=== PATIENT | female | born 1960 | race Caucasian/White ===

== ENCOUNTER 2024-01-01 01:44 | Emergency (ER) | payer MEDICARE, SELFPAY ==
[2024-01-01] VITALS (20 sets, daily range): BP systolic 128–179; BP diastolic 75–114; PULSE 88–136; RESP 18–98; TEMP 36.9–38.1; O2SAT 93–98; BMI 22.8
--- NOTE | 2024-01-01 02:03 | EKG_ITS ---
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: : 1960 Requested By: Amber Lorenzo Order Number: [id number] Reading MD: Amber Lorenzo Measurements Intervals [place] Rate: 133 P: IL: QRS: 154 QRSD: 89 T: 91 QT: 299 QTc: 446 Interpretive Statements ATRIAL FIBRILLATION WITH RAPID VENTRICULAR RESPONSE WITH ABERRANT CONDUCTION OR VENTRICULAR PREMATURE COMPLEXES POSSIBLE RIGHT VENTRICULAR HYPERTROPHY [SOME/ALL OF: PROMINENT R IN V1, LATE TRANSITION, RAD, MICHOACANO, SSS] NONSPECIFIC ST & T-WAVE ABNORMALITY Compared to ECG 07/04/2018 19:27:15 Ventricular premature complex(es) now present Aberrant conduction of supraventricular beat(s) now present Sinus bradycardia no longer present Sinus arrhythmia no longer present Myocardial infarct finding no longer present Possible ischemia no longer present T-wave abnormality still present /store/S0/[id number]/[id number].pdf
--- NOTE | 2024-01-01 02:03 | XR_ITS ---
Examination: CTA abdominal aorta iliofemoral runoff. 2-D sagittal coronal reconstructions. 3-D reconstructions, vascular Exam date and time: January 01, 2024 at 0524 hrs. Comparison May 19, 2023 Indications: Right foot redness swelling and pain beginning 3 days ago Technique: Multiple CTA images of the abdominal aorta iliofemoral runoff arterial vessels, 2.0 mm slice thickness, post intravenous administration 130 cc [id number] 2-D sagittal coronal reconstructions. 3-D reconstructions, vascular 3-D postprocessing, including vascular maximum intensity projection images, 3-D volume rendering Low dose protocols were performed. One or more of the following dose reduction techniques were used; automated exposure control, adjustment of the mA and/or KV according to patient size, use of iterative reconstruction technique. Findings: No focal liver or splenic lesions No gallstones No pancreatic mass Moderate renal parenchymal scar formation No bowel obstruction or pericecal inflammatory change No diverticulitis Urinary bladder intact Atrophic uterus Heavy abdominal aortic calcification Heavy calcification at the origins of the celiac and superior mesenteric axes as well as renal arteries 50% stenosis origin right common iliac artery External iliac arteries intact Occlusion of the proximal right superficial femoral artery Reconstitution of attenuated mid and distal right superficial femoral artery Attenuated right popliteal artery Main continuation trunk right anterior tibial posterior tibial arteries fill to the ankle Left superficial femoral artery, popliteal and trifurcation vessels are patent Impression: Occlusion of the proximal right superficial femoral artery which may be secondary to acute thrombosis, clinical correlation advised.
--- NOTE | 2024-01-01 02:14 | EDNOTE_ITS ---
Lower Extremity Injury RME/HPI General Chief Complaint: Extremity Problem,Nontraumatic Stated Complaint: FOOT PAIN Time Seen by Provider: 01/01/24 01:53 Arrival date/time: 01/01/24 01:44 RME / HPI RME / HPI Narrative: A 63-year-old female patient with past medical history of CHF, diabetes mellitus, hypertension, hyperlipidemia, presented due to right foot pain. Patient has long history of right first toe chronic wound secondary to ingrowing nail for 1 year. Patient reported that she had recurrent infections in the past. She reported also she had 2 blockages which was taken care of by Dr. Marie at [facility]. Today patient reported that she has pain and discharge in her first toe of her right foot. The pain started few weeks ago and acute worsening of the pain. She mentioned that she removed part of her toenail and started to drain pus. Patient denied any fever or chills denied any vomiting or shortness of breath. Related Data Allergies Allergy/AdvReac Type Severity Reaction Status Date / Time No Known Allergies Allergy Verified 02/10/23 13:49 ED Exam Narrative Physical exam: GEN: AOx3, able to speak full sentences, looks underweight HEENT: NC/AC, oral mucosa dry, neck supple CVS: RRR, S1-S2 present, no murmurs appreciated RESP: CTAB GI: soft,non distended, non tender, NBS MSK: Right foot redness and swelling, pallor of the right big toe, powers colored discharge, pulse undetectable. Mild hotness, and tenderness. 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 Course Quality Measures none Orders Category Date Time Status Bedside Blood Glucose NOW Care 01/01/24 02:[address] Screening NOW Care 01/01/24 02:06 Completed Machine Programmer Q4H START 00 Care 01/01/24 02:03 Completed Insert IV NOW Care 01/01/24 02:[address] angio abd ilio fem runoff Stat Exams 01/01/24 02:03 Completed CXRP [XR chest 1V portable] Stat Exams 01/01/24 02:19 Completed Blood Culture (Lab) Stat Lab 01/01/24 02:55 Results CBC Stat Lab 01/01/24 02:15 Completed CRP [C-Reactive Protein] Stat Lab 01/01/24 02:15 Completed Comprehensive Metabolic Panel Stat Lab 01/01/24 02:15 Completed Drug Screen,Urine Stat Lab 01/01/24 08:48 Completed ESR [Sed Rate (ESR)] Stat Lab 01/01/24 02:15 Completed Lactate (Lactic Acid) Stat Lab 01/01/24 02:15 Completed Magnesium Stat Lab 01/01/24 02:15 Completed Partial Thromboplastin Time Stat Lab 01/01/24 02:15 Completed Phosphorous Stat Lab 01/01/24 02:15 Completed Procalcitonin Stat Lab 01/01/24 02:15 Completed Prothrombin Time with INR Stat Lab 01/01/24 02:15 Completed UA [Urinalysis] Stat Lab 01/01/24 08:48 Completed Urine Culture Stat Lab 01/01/24 08:46 Received Acetaminophen Tab [Tylenol Tab] Med 01/01/24 03:14 Discontinued 650 mg PO X1 ONE DILTIAZEM in D5W 125 MG Med 01/01/24 03:00 Discontinued 125 mg in 125 ml IV 5 mg/hr DILTIAZEM in D5W 125 MG Med 01/01/24 04:59 Discontinued 125 mg in 125 ml IV 5 mg/hr Diltiazem Inj [Cardizem Inj] Med 01/01/24 02:53 Discontinued 20 mg IV X1 ONE HYDROmorphone INJ [Dilaudid Inj] Med 01/01/24 12:41 Discontinued 1 mg IVP X1 ONE HYDROmorphone INJ [Dilaudid Inj] Med 01/01/24 16:45 Discontinued 1 mg IVP X1 ONE Morphine Inj Med 01/01/24 03:12 Discontinued 2 mg IVP X1 ONE Morphine Inj [Morphine Sulf Inj] Med 01/01/24 02:09 Discontinued 2 mg IVP X1 ONE Potassium Chloride [K-Dur] Med 01/01/24 04:17 Discontinued 20 meq PO X1 ONE Sodium Chloride 0.9% 500 ml [Ns] 500 ml Med 01/01/24 02:23 Discontinued IV 999 mls/hr Vancomycin Inj 1,000 mg Med 01/01/24 02:24 Discontinued Sodium Chloride 0.9% 250 ml [Ns] 250 ml IV X1 Vancomycin Pharmacy to Dose Med 01/01/24 09:00 Discontinued 1 each IV QDAY PRN Vancomycin/Ns 1 gm Ivpb 200 ml Med 01/01/24 22:00 Discontinued IV Q24H Vancomycin/Ns 1 gm Ivpb 200 ml Med 01/01/24 22:00 Discontinued IV Q24H cefTRIAXone [Rocephin] 2 gm Med 01/01/24 02:23 Discontinued Sodium Chloride 0.9% (P) [Ns 0.9% (P)] 50 ml IV X1 EKG (RT) Stat RT 01/01/24 02:03 Draft Oxygen Delivery PRN RT 01/01/24 02:03 Completed Vital Signs Vital signs: Vital Signs Temperature 99.8 F 01/01/24 02:15 Pulse Rate 136 H 01/01/24 02:15 Respiratory Rate 18 01/01/24 02:15 Blood Pressure 158/114 H 01/01/24 02:15 Pulse Oximetry (%) 93 L 01/01/24 02:15 Oxygen Delivery Method Room Air 01/01/24 02:15 Extremity Injury, Lower Patient data External records reviewed:: [facility] previous records Clinical information provided by:: patient Social determinants that could affect healthcare access:: none Patient has the following chronic illnesses:: Peripheral vascular disease. A fib How is presenting disease/condition affected by chronic disease/condition?: caused by Evaluation data The following diagnostics were reviewed and interpreted by me:: lab results Lab and/or radiology exams considered but not ordered:: NA Interpretation Summary: Noted Medications / Prescriptions Medications or Prescriptions considered but not ordered:: NA Medication administrations:: Medication Administration History Discontinued Medications Acetaminophen (Acetaminophen 325 Mg Tablet) 650 mg PO X1 ONE Stop: 01/01/24 03:15 Last Admin: 01/01/24 03:29 Dose: 650 mg Documented By: SANCHEZ Diltiazem HCl (Diltiazem Inj 5 Mg/Ml Vial 5 Ml) 20 mg IV X1 ONE Stop: 01/01/24 02:54 Last Admin: 01/01/24 03:30 Dose: 20 mg Documented By: SANCHEZ Hydromorphone HCl (Hydromorphone Inj 2 Mg/Ml Vial) 1 mg IVP X1 ONE Stop: 01/01/24 12:42 Last Admin: 01/01/24 12:59 Dose: 1 mg Documented By: GLENIS Hydromorphone HCl (Hydromorphone Inj 2 Mg/Ml Vial) 1 mg IVP X1 ONE Stop: 01/01/24 16:46 Last Admin: 01/01/24 16:48 Dose: 1 mg Documented By: GLENIS Ceftriaxone Sodium 2 gm/ (Sodium Chloride) 50 mls @ 100 mls/hr IV X1 ONE Stop: 01/01/24 02:52 Last Infusion: 01/01/24 03:38 Dose: Infused Documented By: Admin: 01/01/24 03:01 Dose: 100 mls/hr Documented By: SANCHEZ Sodium Chloride (Ns) 500 mls @ 999 mls/hr IV .Q31M ONE Stop: 01/01/24 02:53 Last Infusion: 01/01/24 04:04 Dose: Infused Documented By: Admin: 01/01/24 03:16 Dose: 999 mls/hr Documented By: SANCHEZ Vancomycin HCl 1,000 mg/ (Sodium Chloride) 250 mls @ 150 mls/hr IV X1 ONE Stop: 01/01/24 04:03 Last Infusion: 01/01/24 06:28 Dose: Infused Documented By: Admin: 01/01/24 04:08 Dose: 150 mls/hr Documented By: MINDA Diltiazem HCl (Diltiazem In D5w 125 Mg) 125 mg in 125 mls @ 5 mls/hr IV .Q24H BHANU; Protocol Stop: 01/31/24 02:59 Last Admin: 01/01/24 04:09 Dose: 5 mg/hr, 5 mls/hr Documented By: MINDA Diltiazem HCl (Diltiazem In D5w 125 Mg) 125 mg in 125 mls @ 5 mls/hr IV .Q24H [facility] Stop: 01/31/24 04:58 Last Admin: 01/01/24 06:04 Dose: 5 mg/hr, 5 mls/hr Documented By: SANCHEZ Vancomycin/Sodium Chloride (Vancomycin/Ns 1 Gm Ivpb) 200 mls @ 120 mls/hr IV Q24H [facility] Stop: 01/08/24 21:59 Vancomycin/Sodium Chloride (Vancomycin/Ns 1 Gm Ivpb) 200 mls @ 120 mls/hr IV Q24H ONE Stop: 01/01/24 23:39 Morphine Sulfate (Morphine Sulf Inj 4 Mg/Ml Vial) 2 mg IVP X1 ONE Stop: 01/01/24 02:10 Last Admin: 01/01/24 04:03 Dose: Not Given Documented By: ANDREW Non-Admin Reason: Discontinued Morphine Sulfate (Morphine Sulf Inj 10 Mg/Ml Vial) 2 mg IVP X1 ONE Stop: 01/01/24 03:13 Last Admin: 01/01/24 03:18 Dose: 2 mg Documented By: ANIKA Pharmacy Consult (Vancomycin Pharmacy To Dose 1 Each Each) 1 each IV QDAY PRN PRN Reason: PROTOCOL Stop: 01/31/24 08:59 Potassium Chloride (Potassium Chloride 20 Meq Tabcr) 20 meq PO X1 ONE Stop: 01/01/24 04:18 Last Admin: 01/01/24 06:07 Dose: 20 meq Documented By: SANCHEZ Noted Consultations Consultation(s) initiated? (list below): Yes Diagnosis Most likely diagnosis given after review of the tests above:: arterial occlusion RLE Admission Indicated Admission indicated?: indicated Admission Request Was there a request for admission?: Yes Admission Attestation Admission request attestation: Discussed case with [] from Hospitalist service regarding admission. Discussed patients ED course, exam findings, labs, and radiology results. The Hospitalist [agrees,declines] to accept the patient for admission. Disposition Plan Disposition Plan: Transfer Discharge Plan Plan Patient Disposition: [facility] Pt Being Transferred to: [facility] Needed for Transfer: Vascular Surgery Prescriptions/Referrals Referrals: Gregorio Amaya MD [Primary Care Provider] - In 1 week Problem List Clinical Impression: Arterial occlusion Patient/Caregiver Discharge Instructions Print Language: [place] Leonean Stand Alone Forms: Gaby Award Info., Patient Portal Info Letter Attestation Attestation At 0600 on 01/01/24, the care of the patient was transferred to Dr. Granados. Rober Stahl MD
--- NOTE | 2024-01-01 02:19 | XR_ITS ---
Examination: AP chest single view Technique: AP portable upright chest single view Exam date and time: January 01, 2024 0227 hrs. Indications: Fever sepsis alert today Findings: Mild heart failure Mild enlargement cardiac contour Prominent vascular congestion with septal edema perihilar at the lung bases Consider superimposed bilateral pneumonia Impression: Mild heart failure Consider superimposed bilateral pneumonia
[2024-01-01 02:25] LABS: Lactate (Lactic Acid) 1.7 mMol/L (0.4-2.0)
[2024-01-01 02:26] LABS: Basophils % (Auto) 0 % (0-2.5); Eosinophils # (Auto) 0.1 Thou/mm3 (0.0-0.5); Eosinophils % (Auto) 1 % (0-10); Hematocrit 40.6 % (36.0-46.0); Hemoglobin 13.9 g/dL (12.0-16.0); Immature Granulocytes % (Auto) 0 % (0-0); Immature Granulocytes Auto 0.03 Thou/mm3 (0.00-0.00); Lymphocytes # (Auto) 2.1 Thou/mm3 (1.0-4.8); Lymphocytes % (Auto) 18 % (10-50); Mean Corpuscular HGB Conc 34.2 g/dl (31.0-37.0); Mean Corpuscular Hemoglobin 29.8 pg (25.0-35.0); Mean Corpuscular Volume 87 fL (80-100); Monocytes # (Auto) 1.4 Thou/mm3 (0.0-0.8); Monocytes % (Auto) 12 % (0-12); Neutrophils % (Auto) 69 % (37-80); Nucleated Red Blood Cell % 0 /100 WBC (0); Platelet Count 256 Thou/mm3 (140-440); RDW Standard Deviation 41.5 fL (36.4-46.3); Red Blood Count 4.67 Miln/mm3 (4.00-5.20); White Blood Count 11.6 Thou/mm3 (3.6-11.0)
[2024-01-01] MEDS: cefTRIAXone 2 GM in SODIUM CHLORIDE 0.9% (P) 50 ML IV (03:01)
[2024-01-01 03:06] LABS: Partial Thromboplastin Time 27.1 Seconds (22.0-36.0); Prothrombin Time 10.7 Seconds (9.0-12.2)
[2024-01-01 03:07] LABS: Sed Rate (ESR) 89 mm/hr (0-30)
[2024-01-01] MEDS: SODIUM CHLORIDE 0.9% 500 ML 500 ML 999 ML IV (03:16)
[2024-01-01 03:17] LABS: Alanine Aminotransferase 23 U/L (10-49); Albumin, Serum 4.2 gm/dL (3.4-4.8); Albumin/Globulin Ratio 1.3 (1.2-2.2); Alkaline Phosphatase 80 U/L (46-116); Anion Gap 5 (7-16); Aspartate Amino Transferase 26 U/L (0-34); BUN/Creatinine Ratio 23 Ratio (12-20); Bilirubin,Total 0.3 mg/dL (0.3-1.2); Blood Urea Nitrogen 28 mg/dL (9-23); C-Reactive Protein 6.9 mg/dL (0.0-0.9); Calcium 9.1 mg/dL (8.3-10.6); Calcium (Corrected) 9.1 mg/dL (8.5-10.1); Carbon Dioxide 26.9 mMol/L (20.0-31.0); Chloride 99 mMol/L (98-107); Creatinine (Component) 1.2 mg/dL (0.6-1.3); Globulin 3.2 gm/dL (2.3-3.5); Glucose 243 mg/dL (74-106); Osmolality,Calculated 276 (275-295); Potassium 3.9 mMol/L (3.4-5.1); Procalcitonin 0.44 ng/ml (0.0-0.49); Sodium 131 mMol/L (136-145); Total Protein 7.4 gm/dL (5.7-8.2); eGFR 50 See Note
[2024-01-01] MEDS: MORPHINE SULF INJ 10 MG/ML VIAL 2 MG IVP (03:18)
[2024-01-01] MEDS: ACETAMINOPHEN 325 MG TABLET 650 MG PO (03:29)
[2024-01-01] MEDS: DILTIAZEM INJ 5 MG/ML VIAL 5 ML 20 MG IV (03:30)
[2024-01-01] MEDS: Vancomycin Inj 1,000 MG in SODIUM CHLORIDE 0.9% 250 ML 250 ML 150 MG IV (04:08)
[2024-01-01] MEDS: DILTIAZEM in D5W 125 MG 125 MG/125 ML BAG IV ×2 (04:09→06:04)
[2024-01-01] MEDS: POTASSIUM CHLORIDE 20 mEq TABCR PO (06:07)
--- NOTE | 2024-01-01 07:20 | PRELIM_ITS ---
CT angiogram of the abdomen and bilateral lower extremities with intravenous contrast (axial sections with sagittal and coronal reformats): January 01, 2024 at 0524 hours Clinical History: Right lower extremity swelling/ peripheral arterial disease. Comparison: No prior study is available for comparis on. Findings:The abdominal aorta demonstrates atheromatous calcification without evidence of dissecti on or aneurysm. The celiac, superior mesenteric, inferior mesenteric and bilateral renal arteries are patent to the extent visualized. The common iliac, external iliac and internal iliac arteries are pa tent bilaterally.Right lower limb: The common femoral and profunda femoral arteries are patent. The p roximal third of the right superficial femoral artery is occluded. The distal two-thirds of the super ficial femoral artery, popliteal, peroneal, anterior tibial, posterior tibial and dorsalis pedis sana yue are normal in course and caliber and are patent. Left lower limb: The common femoral, superficia l femoral, profunda femoral and popliteal arteries are normal in course and caliber. The anterior tib ial, posterior tibial, peroneal and dorsalis pedis arteries are patent.The liver, gallbladder, spleen , pancreas, adrenals and kidneys are unremarkable.No evidence of bowel obstruction. A moderate amount of fecal material is present in the colon. The appendix is not definitively visualized; however, the re is no evidence of inflammatory process in the right lower quadrant to suggest appendicitis. There is no significant mesenteric or retroperitoneal adenopathy.The urinary bladder is unremarkable. There is no free fluid, free air or abscess.Degenerative changes are identified in the spine. Impression:1 . Focal occlusion of the proximal right superficial femoral artery as described above, likely represe nting acute thrombosis. 2. No evidence of aortic dissection or aneurysm.3. Unremarkable abdomen and l eft lower extremity.Discussion Details: Results verbally communicated to : Dr. Granados at 07:01 AM 01/01/2024 Report Electronically Signed By: John Samson 01/01/2024 7:20:02 AM [EST]
--- NOTE | 2024-01-01 07:58 | PD.EDADDENDU ---
Emergency Room Addendum Addendum Narrative: Patient is s/p enarterectomy by Dr. Marie 2 mo ago and now has focal occlusion of the proximal R superficial femoral artery, causing area of necrosis to her R great toe
[2024-01-01 09:38] LABS: Collection Type, Urine Clean Catch
[2024-01-01 09:58] LABS: Bilirubin,Urine Negative (Negative); Blood,Urine Negative (Negative); Clarity,Urine Clear (Clear/Hazy); Color,Urine Lt-Yellow (Lt Yel-Yel); Glucose, Urine 2+ (Negative); Ketones,Urine Negative (Negative); Leukocyte Esterase,Urine Negative (Negative); Nitrite,Urine Negative (Negative); Protein,Urine Negative (Neg - Trace); RBC,Urine 1 /hpf (0-3); Squamous Epithelial Cell,Urine < 1 /hpf (0-5); Urobilinogen,Urine Negative mg/dL (0.0-1.0); WBC,Urine < 1 /hpf (0-5)
[2024-01-01 09:59] LABS: Specific Gravity,Urine 1.025 (1.001-1.035)
--- NOTE | 2024-01-01 11:32 | PC.CM ---
Addendum entered by Maury Miles RN 01/01/24 14:51: 1445 accepted at [facility] by Dr. King, ED to ED, Report to be called at [phone]. Informed ER CN Mane, packet delivered to ED. Addendum entered by Maury Miles RN 01/01/24 12:34: Received call from HOSSEIN Cuello at [facility], stated she had spoken to Dr. King and connected him with Dr. Granados. Dr. King reviewing case at this time, [facility] RN will call with update when available. Addendum entered by Maury Miles RN 01/01/24 11:38: Spoke with HOSSEIN Cuello at [facility], provided information on patient. She will consult with her MD for review of case. Pending response from at this time. Original Note: [address] Granados requesting transfer for vascular surgery at [facility], patient had surgery previously with Dr. Marie at [facility], he has spoken to Dr. King who is asic verification engineer at [facility] and he is willing to accept patient for transfer. Transfer packet initiated and imaging disc created for packet.
[2024-01-01 12:25] LABS: Amphetamine/Methamp Scrn,U Positive (Negative); Barbiturate Screen,Urine Negative (Negative); Benzodiazepines Screen,Urine Negative (Negative); Benzoylecgonine Screen, Ur Negative (Negative); Fentanyl Screen,Urine Negative (Negative); Opiate Screen,Urine Positive (Negative); THC Screen,Urine Positive (Negative)
[2024-01-01] MEDS: HYDROmorphone INJ 2 MG/ML VIAL 1 MG IVP ×2 (12:59→16:48)
== END 2024-01-01 16:55 | disposition short-term general hospital (02) ==
PROVIDERS: Student in an Organized Health Care Education/Training Program; Emergency Provider Emergency Medicine; PCP Family Medicine
DX: I77.1 Stricture of artery (principal); I96 Gangrene, not elsewhere classified; I48.91 Unspecified atrial fibrillation; I49.3 Ventricular premature depolarization; I11.0 Hypertensive heart disease with heart failure; I50.9 Heart failure, unspecified
CPT/HCPCS: 36415; 71045; 75635; 80053; 80307; 81001; 83605; 83735; 84100; 84145; 85025; 85610; 85652; 85730; 86140; 87040; 87086; 93005; 96365; 96366; 96367; 96375; 99285; A4649; J0696; J2270; J3371; J3490; J7040; J7050; Q9967; A9270; J3370

== ENCOUNTER 2024-01-14 18:00 | Inpatient (IN) | payer MEDICARE, MEDICAID, SELFPAY ==
--- NOTE | 2024-01-14 21:21 | PC.NURSE ---
Patient transferred from . Patient A/Ox4, clear speech. able to answer all questions appropriately, denies chest pain or shortness of breath. Right foot wrapped in gauze and Right femoral/inner leg covered with bandaid. No bleeding or drainage observed. Report received from Micah CATALAN from . Dr. Bonilla called and made aware patient arrived to room 361. Per Dr. Bonilla she will place orders.
--- NOTE | 2024-01-14 21:29 | PD.RESHP ---
Documentation for date of: 01/14/24 HPI History of Present Illness Chief complaint: Right femoral artery occlusion History of present illness: 63-year-old female with past medical history of femoral endarterectomy, atrial fibrillation, insulin-dependent type 2 diabetes, history of DVT, CHF, hyperlipidemia, hypertension transferring from [facility] ([place], [place]) after completing peripheral revascularization and angiogram of right common femoral artery. Patient initially presented to [facility] on 12/31 with worsening right foot pain along with ischemic changes noted; found to have right femoral artery occlusion and was transferred to [facility] for vascular surgery needs. Of note, patient underwent right common femoral endarterectomy sometime in September but presented to [facility] with the pain after she trimmed her toenail and started to develop ischemia of the right great toe. Surgery was completed on 01/02/[address] King without any acute complications postoperatively. On 01/14/2024 patient is transferring back to [facility] after being stable, chronic medical conditions controlled and requiring placement. Medical history: As stated above Surgical history: Endarterectomy femoral artery (right) on 10/07/2023, appendectomy, ovarian cyst Allergies: NKDA Medications: As listed Family history: Father with heart disease and ID, mother with history of cancer Social history: Patient denies alcohol use, current everyday smoker smokes 1 to 2 cigarettes a day for 45 years, smokes marijuana 1 to 2 times per week ROS: All 12 systems assessed and the patient denies unless otherwise stated in HPI Exam Narrative Exam Physical Exam: GENERAL: Awake, answering questions appropriately, appears stated age HEENT: NC/AT. Moist mucosa. PERRLA/EOMI. CARDIO: Heart RRR, no obvious murmurs, no JVD. PULM: No coughing or visible SOB. Lungs CTA B/L. GI: Abdomen soft, NT/ND, +BS. SKIN/MSK/EXT: R foot bandaged with no oozing; extremities well perfused, warm with no peripheral edema noted NEURO: Oriented x3, grove superintendent strength 5/5, no focal neurological deficits Results: Labs 01/15/24 04:20 01/15/24 04:20 Quality Measures Quality Measures VTE prophylaxis Advance care planning discussed with:: patient Medications Home Medications and Allergies Allergies Allergy/AdvReac Type Severity Reaction Status Date / Time No Known Allergies Allergy Verified 02/10/23 13:49 Assessment & Plan Plan 63-year-old female with past medical history of femoral endarterectomy, atrial fibrillation, insulin-dependent type 2 diabetes, history of DVT, CHF, hyperlipidemia, hypertension transferring from [facility] ([place], [place]) after completing peripheral revascularization and angiogram of right common femoral artery transferring back to [facility] after being stable, chronic medical conditions controlled and requiring placement. 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 King without any acute complications POD#12 Plan: Pain controlled with tramadol PT consult in Monitor for any acute changes to circulation Will need placement to SNF s/p surgery Follow-up with Dr. Lanza for wound care Weight-bearing in surgical shoe Change dressings daily Keep dressings clean and dry #Blood loss anemia s/p transfusion Patient's Hgb was 6.5 on 01/11; recieved 1u of pRBC No signs of GI bleed Plan: Follow-up with morning labs #Atrial fibrillation, rate controlled #DVT on Eliquis CHADVaSc score of 6?points Stroke risk was 9.7% per year in >90,000 patients (the [place] Atrial Fibrillation Cohort Study) and 13.6% risk of stroke/TIA/systemic embolism Patient's on Digoxin 0.25mg po daily and Metoprolol tartrate 25mg po bid Plan: Continue Eliquis 2.5mg po BID (patient had bleeding; [facility] dose reduced) Continue home meds #Prevotella bacteremia, completed abx course 7 days of Zosyn and Doxycycline (started on 01/10 to end on 01/16) Plan: Continue Doxycycline until 01/16 Monitor for any new signs of sepsis #Insulin dependent, type 2 diabetes mellitus #Diabetic neuropathy On home Lantus 40u and gabapentin 100 in the morning and 300 at night Plan: SSI for now Continue home gabapentin #History of CHF, HFrEF Patient has several risk factors (htn, hln, diabetes, smoking history) Echo from 2019 shows: Normal left ventricular size with mild LVH. Approximate ejection fraction is 25-30%. Moderate mitral regurgitation. Mild pulmonic and tricuspid regurgitation noted. Mild pulmonary hypertension Plan: ECHO ordered #Hypertension #Hyperlipidemia On home valsartan 160mg po daily, atorvastatin 20mg po hs Continue home medications as prescribed #Generalized Anxiety On home Buspar 5mg po bid Plan: Restarted home medication Hospital Management: Lines: PIV Bowel: Senna prn Diet: Cardiac and Carb consistent low GI prophylaxis: famitidine 40 DVT prophylaxis: Eliquis 2.5 Dispo: Pending placement s/p femoropopliteal bypass at [facility] Code: Full Patient seen and examined with attending Dr. Connelly and senior resident Dr. Chad Coles, PGY-1 Attending Provider Attestation/Addendum Face to face evaluation was performed by me. I have personally seen and examined the patient. I discussed the assessment and plan with the entire medicine team. I reviewed available medical records, imaging studies, laboratory results. I agree with the above subjective data, objective findings, assessment and plan except as corrected by me or noted below #Right peripheral artery disease s/p femoropopliteal bypass #Gangrene of R toe s/p amputation of r hallux History of Endarterectomy femoral artery (right) on 10/07/2023 Patient had surgery at [facility] on 01/[address] King without any acute complications POD#12 #Blood loss anemia s/p transfusion #Atrial fibrillation, rate controlled #DVT on Eliquis # HTN essential - Pt transferred from , continue meds including apixaban and asa - Placement SW to follow -Monitor labs, vitals and clinical course clayey DVT ppx covered with apixaban
[2024-01-14 21:32] VITALS: BP 115/57; PULSE 65; RESP 17; TEMP 36.1; O2SAT 97
[2024-01-14] MEDS: INSULIN GLARGINE (Lantus) 5 UNIT/0.05 ML (PER 5 UNITS) 10 UNIT SC (22:39)
[2024-01-14 23:16] VITALS: PULSE 40
[2024-01-15] VITALS (11 sets, daily range): BP systolic 128–152; BP diastolic 48–68; PULSE 9–70; RESP 16–98; TEMP 36.2–36.6; O2SAT 95–99
[2024-01-15] MEDS: traMADol HCL 50 MG TABLET PO ×3 (04:19→17:20)
[2024-01-15 05:48] LABS: Basophils % (Auto) 0 % (0-2.5); Eosinophils # (Auto) 0.1 Thou/mm3 (0.0-0.5); Eosinophils % (Auto) 1 % (0-10); Hematocrit 28.3 % (36.0-46.0); Hemoglobin 8.9 g/dL (12.0-16.0); Immature Granulocytes % (Auto) 5 % (0-0); Lymphocytes # (Auto) 2.4 Thou/mm3 (1.0-4.8); Lymphocytes % (Auto) 18 % (10-50); Mean Corpuscular HGB Conc 31.4 g/dl (31.0-37.0); Mean Corpuscular Hemoglobin 27.5 pg (25.0-35.0); Mean Corpuscular Volume 87 fL (80-100); Monocytes # (Auto) 1.2 Thou/mm3 (0.0-0.8); Monocytes % (Auto) 9 % (0-12); Neutrophils % (Auto) 67 % (37-80); Nucleated Red Blood Cell # 0.14 Thou/mm3 (0.00-0.00); Nucleated Red Blood Cell % 1 /100 WBC (0); Platelet Count 536 Thou/mm3 (140-440); RDW Standard Deviation 53.5 fL (36.4-46.3); Red Blood Count 3.24 Miln/mm3 (4.00-5.20); White Blood Count 13.5 Thou/mm3 (3.6-11.0)
[2024-01-15 06:20] LABS: Alanine Aminotransferase 12 U/L (10-49); Albumin, Serum 3.4 gm/dL (3.4-4.8); Albumin/Globulin Ratio 1.4 (1.2-2.2); Alkaline Phosphatase 71 U/L (46-116); Anion Gap 7 (7-16); Aspartate Amino Transferase 28 U/L (0-34); BUN/Creatinine Ratio 28 Ratio (12-20); Bilirubin,Total 0.5 mg/dL (0.3-1.2); Blood Urea Nitrogen 22 mg/dL (9-23); Calcium 8.2 mg/dL (8.3-10.6); Calcium (Corrected) 8.7 mg/dL (8.5-10.1); Carbon Dioxide 26.5 mMol/L (20.0-31.0); Chloride 102 mMol/L (98-107); Creatinine (Component) 0.8 mg/dL (0.6-1.3); Digoxin 1.5 ng/mL (0.8-2.0); Globulin 2.5 gm/dL (2.3-3.5); Glucose 137 mg/dL (74-106); Magnesium 1.9 mg/dL (1.6-2.6); Osmolality,Calculated 275 (275-295); Phosphorous 2.8 mg/dL (2.4-5.1); Potassium 4.2 mMol/L (3.4-5.1); Sodium 135 mMol/L (136-145); Total Protein 5.9 gm/dL (5.7-8.2); eGFR > 60 See Note
[2024-01-15 07:40] LABS: Glucose Estimated Average 169 mg/dL (80-131); Hemoglobin A1C 7.5 % Hgb (4.8-6.0)
[2024-01-15] MEDS: SENNA TABLET 1 TAB PO (08:24)
[2024-01-15] MEDS: DIGOXIN 0.125 MG TABLET 0.25 MG PO (08:24)
[2024-01-15] MEDS: INSULIN LISPRO (AdmeLOG) 1 UNIT/0.01 ML UNIT SC ×3 (08:24→17:20)
[2024-01-15] MEDS: DOXYCYCLINE 100 MG TABLET PO ×2 (08:24→20:11)
[2024-01-15] MEDS: ASPIRIN EC 81 MG TABEC PO (08:24)
[2024-01-15] MEDS: BusPIRone HCL 5 MG TABLET PO ×2 (08:24→20:11)
[2024-01-15] MEDS: GABAPENTIN 100 MG CAPSULE PO (08:24)
[2024-01-15] MEDS: APIXABAN 2.5 MG TABLET PO ×2 (10:18→20:12)
[2024-01-15] MEDS: METOPROLOL TARTRATE 25 MG TABLET 50 MG PO ×2 (10:20→20:10)
[2024-01-15] MEDS: VALSARTAN 80 MG TABLET 160 MG PO (10:20)
[2024-01-15 13:38] LABS: Amphetamine/Methamp Scrn,U Negative (Negative); Barbiturate Screen,Urine Negative (Negative); Benzodiazepines Screen,Urine Negative (Negative); Benzoylecgonine Screen, Ur Negative (Negative); Fentanyl Screen,Urine Negative (Negative); Opiate Screen,Urine Positive (Negative); THC Screen,Urine Negative (Negative)
--- NOTE | 2024-01-15 15:48 | PC.SS ---
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
--- NOTE | 2024-01-15 16:59 | ESPR_ITS ---
<Statement entered by Vijay Scruggs MD - 01/16/24 12:17> I have discussed and was present for the essential components of the history, physical examination, diagnosis, and treatment plan with the resident. I agree with the patient's care as documented by the resident and amended herein by me. Vijay Scruggs MD. <Statement entered by Armen Robbins MD - 01/15/24 20:28> Patient was seen and examined at the bedside. Patient was received overnight after getting transferred back from [facility] to our facility after getting femoropopliteal bypass grafting in the right lower extremity PAD. He underwent amputation of the right toe for gangrene right toe. Patient is currently on aspirin and Eliquis therapy. Home medications were reconciled. Patient is also on doxycycline until January 16 for possible prepatellar bacteremia per chart review. PT recommended SNF and awaiting for placement. Patient was otherwise stable. All labs and orders were reviewed. I saw and examined the patient, and I agree with current management stated by Dr Rd MD,PGY1. Plan of care was discussed with the attending physician and resident physician. Disclaimer: Despite multiple revisions, due to the dictation software being used, the document bellow may not be free of grammatical errors including phonetic/typographic errors. However, this does not deter from our commitment to providing health care in the patient's best interest in mind. Dr. Eric MD, PGY 2 Documentation for date of: 01/15/24 Subjective Subjective Interval history: Patient is a 63 year old female with a past medical history of Hypertension, Hyperlipidemia, Diabetes Mellitus Type 2 Inuslin Dependent, COPD, CHF, atrial fibrillation, Diabetic Foot Ulcer w/ PAD s/p Debridement 12/09/2023, history of femoral endarterectomy by Dr. Marie. Patient was transfered from [facility] back to [place] on (01/14/2024) s/p peripheral revascularization and angiogram of right common femoral arter. Patient was initially transfered to [facility] on 01/01/2024 directly form ER. Patient admitted overnight and no acute events reported by patient. Patient examined at beside. Patient denied any lowere extremity pain. Denied chills or pyrexia. Denied chest pain or SOB. Exam Vital Signs Temp Pulse Resp BP Pulse Ox O2 Del Method 97.8 F 69 16 131/62 H 97 Room Air 01/15/24 12:00 01/15/24 12:00 01/15/24 12:00 01/15/24 12:00 01/15/24 12:00 01/15/24 12:00 Narrative Exam General Appearance: Alert & Oriented X3, well-nourished female who is lying in bed in no acute distress HEENT: Skull symmetrical and atraumatic. Conjunctivae pin and moist. Pupils equal, round, reactive to light and accommodation (PERRL). External ear without lesion or discharge. Straight, nares patient, mucosa pink, no discharge. No thyroid nodule appreciated. No cervical lymphadenopathy. Cardio: Normal Rate and Rhythm with S1 and S2 heart sounds. No murmurs or extra heart sounds auscultated. No bruits on carotid auscultation. No peripheral edema or cyanosis. Lungs: Symmetric with good expansion. Chest and back non-tender. Breath sounds vesicular without crackles, wheezing or rhonchi Abdomen: Non-tender, Non-distended, Normal Reactive Bowel Sounds Neuro: Alert, cooperative, oriented to person, place, and time. Speech clear. CN grossly intact. Upper motor strength 5/5 and Lower motor strength 5/5. Sensation intact. Objective Labs 01/15/24 04:20 01/15/24 04:20 Labs: Laboratory Results - last 24 hr 01/15/24 01/15/24 04:20 12:50 WBC 13.5 H RBC 3.24 L Hgb 8.9 L Hct 28.3 L MCV 87 MCH 27.5 MCHC 31.4 RDW Std Deviation 53.5 H Plt Count 536 H D Neut % (Auto) 67 Lymph % (Auto) 18 [place] % (Auto) 9 Eos % (Auto) 1 Baso % (Auto) 0 Neut # (Auto) 9.0 H Lymph # (Auto) 2.4 [place] # (Auto) 1.2 H Eos # (Auto) 0.1 Baso # (Auto) 0.0 Immature Gran # (Auto) 0.70 H Absolute Nucleated RBC 0.14 H Immature Gran % 5 H Nucleated RBC % 1 H Sodium 135 L Potassium 4.2 Chloride 102 Carbon Dioxide 26.5 Anion Gap 7 BUN 22 Creatinine 0.8 Estim Creat Clear Calc Not Performed. eGFR > 60 BUN/Creatinine Ratio 28 H Glucose [address] Glu mg/dL 169 H Hemoglobin A1c 7.5 H Calculated Osmolality 275 Calcium 8.2 L Corrected Calcium 8.7 Phosphorus 2.8 Magnesium 1.9 Total Bilirubin 0.5 AST 28 ALT 12 Alkaline Phosphatase 71 Total Protein 5.9 Albumin 3.4 Globulin 2.5 Albumin/Globulin Ratio 1.4 Digoxin 1.5 Urine Opiates Screen Positive A Urine Fentanyl Screen Negative Ur Barbiturates Screen Negative U Amphetamin/Meth Scrn Negative U Benzodiazepines Scrn Negative U Cocaine Metab Screen Negative U Marijuana (THC) Screen Negative Quality Measures Quality Measures VTE prophylaxis Advance care planning discussed with:: other Assessment & Plan Assessment Current Active Medications: Generic Name Dose Route Start Last Admin Trade Name Freq PRN Reason Stop Dose Admin Acetaminophen 650 mg 01/15/24 11:44 Acetaminophen 325 Mg Tablet PO 02/13/24 21:27 Q6H PRN Mild Pain or Fever >100.3 Hydrocodone Bitart/Acetaminophen 1 tab 01/15/24 11:43 Hydrocodone/Apap 5/325 Tablet PO 01/19/24 21:44 Q6HR PRN PAIN SCALE 7-10 (Severe Apixaban 2.5 mg 01/15/24 09:00 01/15/24 10:18 Apixaban 2.5 Mg Tablet PO 02/14/24 08:59 2.5 mg BID BHANU Administration Aspirin 81 mg 01/15/24 09:00 01/15/24 08:24 Aspirin Ec 81 Mg Tabec PO 02/14/24 08:59 81 mg QDAY BHANU Administration Atorvastatin Calcium 20 mg 01/15/24 21:00 Atorvastatin Calcium 20 Mg Tablet PO 02/14/24 20:59 HS BHANU Buspirone HCl 5 mg 01/15/24 09:00 01/15/24 08:24 Buspirone Hcl 5 Mg Tablet PO 02/14/24 08:59 5 mg BID BHANU Administration Dextrose 25 ml 01/14/24 21:46 Dextrose 50%-Water Inj 50 Ml Syringe IV 02/13/24 21:45 Q15MIN PRN BG 50-70 responsive npo pt Dextrose 50 ml 01/14/24 21:46 Dextrose 50%-Water Inj 50 Ml Syringe IV 02/13/24 21:45 Q15MIN PRN BG <50 OR BG <70 & pt unresponsive Digoxin 0.25 mg 01/15/24 09:00 01/15/24 08:24 Digoxin 0.125 Mg Tablet PO 02/14/24 08:59 0.25 mg QDAY BHANU Administration Doxycycline Hyclate 100 mg 01/15/24 09:00 01/15/24 08:24 Doxycycline 100 Mg Tablet PO 01/18/24 08:00 100 mg BID BHANU Administration Famotidine 40 mg 01/15/24 21:00 Famotidine 20 Mg Tablet PO 02/14/24 20:59 HS BHANU Gabapentin 100 mg 01/15/24 09:00 01/15/24 08:24 Gabapentin 100 Mg Capsule PO 02/14/24 08:59 100 mg QDAY BHANU Administration Gabapentin 300 mg 01/15/24 21:00 Gabapentin 300 Mg Capsule PO 02/14/24 20:59 HS BHANU Glucagon 1 mg 01/14/24 21:46 Glucagon Inj 1 Mg Vial IM Q15MIN PRN BG <70, and no IV access Insulin Human Lispro 0 unit 01/15/24 07:30 01/15/24 12:03 Insulin Lispro (Admelog) 1 Unit/0.01 Ml Unit SC 02/14/24 07:29 1 unit AC [facility] Administration Protocol Metoclopramide HCl 10 mg 01/14/24 21:28 Metoclopramide 5 Mg Tablet PO 02/13/24 21:29 Q6H PRN Nausea Or Vomiting Metoprolol Tartrate 50 mg 01/14/24 21:45 01/15/24 10:20 Metoprolol Tartrate 25 Mg Tablet PO 02/13/24 21:44 50 mg BID BHANU Administration Sennosides 1 tab 01/15/24 09:00 01/15/24 08:24 Senna Tablet PO 02/14/24 08:59 1 tab QDAY [facility] Administration Protocol Tramadol HCl 50 mg 01/15/24 11:43 Tramadol Hcl 50 Mg Tablet PO 01/19/24 21:44 Q6HR PRN PAIN SCALE 4-6 (Moderate Valsartan 160 mg 01/15/24 09:00 01/15/24 10:20 Valsartan 80 Mg Tablet PO 02/14/24 08:59 160 mg QDAY [facility] Administration Plan Patient is a 63 year old female with a past medical history of Hypertension, Hyperlipidemia, Diabetes Mellitus Type 2 Inuslin Dependent, COPD, CHF, atrial fibrillation, Diabetic Foot Ulcer w/ PAD s/p Debridement 12/09/2023, history of femoral endarterectomy by Dr. Marie. Patient was transfered from [facility] back to [place] on (01/14/2024) s/p peripheral revascularization and angiogram of right common femoral arter. Patient was initially transfered to [facility] on 01/01/2024 directly form ER. Pending SNF. 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 King without any acute complications POD#12 Plan: -Physical Therapy Pending* Pain controlled Tylenol 650 mg PO Q6HR PRN (Mild Pain or Fever), Belle, tramadol Monitor for any acute changes to circulation Need SNF s/p surgery Follow-up with Dr. Lanza for wound care Weight-bearing in surgical shoe Change dressings daily Keep dressings clean and dry #Prevotella bacteremia, completed abx course 7 days of Zosyn and Doxycycline (started on 01/10 to end on 01/16) Plan: Continue Doxycycline until 01/16 Monitor for any new signs of sepsis #History of Chronic CHF, HFrEF #Hyperlipidemia Per chart review history of CHF. Patient does not appear to be in acute exacerbation but has significant co-morbidities contributing to CHF-DM, HTN, HLD Diagnostics: Echo from 2019 shows: Normal left ventricular size with mild LVH. Approximate ejection fraction is 25-30%. Moderate mitral regurgitation. Mild pulmonic and tricuspid regurgitation noted. Mild pulmonary hypertension Plan: -Atorvastatin 20 mg PO HS -Digoxin 0.25 mg PO QDay -Metoprolol Tartrate 50 mg PO BID -Consider TSH and Lipid panel pending echo -ECHO -pending #Atrial fibrillation, rate controlled #DVT on Eliquis CHADVaSc score of 6 points Stroke risk was 9.7% per year in >90,000 patients (the American Atrial Fibrillation Cohort Study) and 13.6% risk of stroke/TIA/systemic embolism Patient's on Digoxin 0.25mg po daily and Metoprolol tartrate 25mg po bid Plan: Continue Eliquis 2.5mg po BID (patient had bleeding; [facility] dose reduced) Continue home meds #Insulin dependent, type 2 diabetes mellitus #Diabetic neuropathy #hx of Diabetic Foot Ulcer On home Lantus 40u and gabapentin 100 in the morning and 300 at night Diagnostic: -A1c 7.5% -Fasting Glucose (01/15/2024) 137 -Following total Lispr tomorrow. Plan: -SSI -Continue home gabapentin #Hypertension History of HTN. Blood pressure on admission Plan -Continue home dose medication of Valsartan 160 mg PO QDay #Generalized Anxiety On home Buspar 5mg po bid Plan: Restarted home medication #Blood loss anemia s/p transfusion Patient's Hgb was 6.5 on 01/11; recieved 1u of pRBC No signs of GI bleed Plan: Follow-up with morning labs Health Maintenance: Disp: Pt is currently admitted to floors for further management of S/p femoropoliteal bypass, awaiting SNF placement FEN: Cardiac/low carb consistent low DVT: Eliquis 2.5 mg BID Code: Full code - The patient's plan was discussed with attending Dr. Scruggs and senior residents Dr. Eric Sultana MD PGY1 Internal Medicine
[2024-01-15] MEDS: ATORVASTATIN CALCIUM 20 MG TABLET PO (20:11)
[2024-01-15] MEDS: GABAPENTIN 300 MG CAPSULE PO (20:11)
[2024-01-15] MEDS: FAMOTIDINE 20 MG TABLET 40 MG PO (20:11)
[2024-01-15] MEDS: HYDROcodone/APAP 5/325 TABLET 1 TAB PO (20:11)
[2024-01-16] VITALS (9 sets, daily range): BP systolic 116–144; BP diastolic 52–67; PULSE 39–68; RESP 17–24; TEMP 36.1–37; O2SAT 96–98
[2024-01-16 05:51] LABS: Basophils % (Auto) 0 % (0-2.5); Eosinophils # (Auto) 0.1 Thou/mm3 (0.0-0.5); Eosinophils % (Auto) 1 % (0-10); Hematocrit 29.7 % (36.0-46.0); Hemoglobin 9.4 g/dL (12.0-16.0); Immature Granulocytes % (Auto) 4 % (0-0); Lymphocytes # (Auto) 3.2 Thou/mm3 (1.0-4.8); Lymphocytes % (Auto) 25 % (10-50); Mean Corpuscular HGB Conc 31.6 g/dl (31.0-37.0); Mean Corpuscular Hemoglobin 28.3 pg (25.0-35.0); Mean Corpuscular Volume 90 fL (80-100); Monocytes # (Auto) 1.3 Thou/mm3 (0.0-0.8); Monocytes % (Auto) 10 % (0-12); Neutrophils # (Auto) 7.8 Thou/mm3 (1.8-7.7); Neutrophils % (Auto) 60 % (37-80); Nucleated Red Blood Cell # 0.03 Thou/mm3 (0.00-0.00); Nucleated Red Blood Cell % 0 /100 WBC (0); Platelet Count 573 Thou/mm3 (140-440); RDW Standard Deviation 55.1 fL (36.4-46.3); Red Blood Count 3.32 Miln/mm3 (4.00-5.20); White Blood Count 12.9 Thou/mm3 (3.6-11.0)
[2024-01-16 06:15] LABS: Alanine Aminotransferase 13 U/L (10-49); Albumin, Serum 3.5 gm/dL (3.4-4.8); Albumin/Globulin Ratio 1.3 (1.2-2.2); Alkaline Phosphatase 73 U/L (46-116); Anion Gap 6 (7-16); Aspartate Amino Transferase 31 U/L (0-34); BUN/Creatinine Ratio 27 Ratio (12-20); Bilirubin,Total 0.4 mg/dL (0.3-1.2); Blood Urea Nitrogen 24 mg/dL (9-23); Calcium 8.5 mg/dL (8.3-10.6); Calcium (Corrected) 8.9 mg/dL (8.5-10.1); Carbon Dioxide 25.9 mMol/L (20.0-31.0); Chloride 102 mMol/L (98-107); Creatinine (Component) 0.9 mg/dL (0.6-1.3); Globulin 2.8 gm/dL (2.3-3.5); Glucose 141 mg/dL (74-106); Magnesium 1.9 mg/dL (1.6-2.6); Osmolality,Calculated 274 (275-295); Phosphorous 2.9 mg/dL (2.4-5.1); Sodium 134 mMol/L (136-145); Total Protein 6.3 gm/dL (5.7-8.2); eGFR > 60 See Note
[2024-01-16] MEDS: INSULIN LISPRO (AdmeLOG) 1 UNIT/0.01 ML UNIT SC ×3 (07:44→16:53)
--- NOTE | 2024-01-16 07:53 | PD.RESPRO ---
Documentation for date of: 01/16/24 Exam Vital Signs Temp Pulse Resp BP Pulse Ox O2 Del Method 97.6 F 60 17 144/63 H 97 Room Air 01/16/24 07:51 01/16/24 07:51 01/16/24 07:51 01/16/24 07:51 01/16/24 07:51 01/16/24 07:51 Objective Labs 01/16/24 05:24 01/16/24 05:24 Labs: Laboratory Results - last 24 hr 01/15/24 01/16/24 12:50 05:24 WBC 12.9 H RBC 3.32 L Hgb 9.4 L Hct 29.7 L MCV 90 MCH 28.3 MCHC 31.6 RDW Std Deviation 55.1 H Plt Count 573 H D Neut % (Auto) 60 Lymph % (Auto) 25 [place] % (Auto) 10 Eos % (Auto) 1 Baso % (Auto) 0 Neut # (Auto) 7.8 H Lymph # (Auto) 3.2 [place] # (Auto) 1.3 H Eos # (Auto) 0.1 Baso # (Auto) 0.0 Immature Gran # (Auto) 0.50 H Absolute Nucleated RBC 0.03 H Immature Gran % 4 H Nucleated RBC % 0 Sodium 134 L Potassium 5.0 D Chloride 102 Carbon Dioxide 25.9 Anion Gap 6 L BUN 24 H Creatinine 0.9 Estim Creat Clear Calc Not Performed. eGFR > 60 BUN/Creatinine Ratio 27 H Glucose 141 H Calculated Osmolality 274 L Calcium 8.5 Corrected Calcium 8.9 Phosphorus 2.9 Magnesium 1.9 Total Bilirubin 0.4 AST 31 ALT 13 Alkaline Phosphatase 73 Total Protein 6.3 Albumin 3.5 Globulin 2.8 Albumin/Globulin Ratio 1.3 Urine Opiates Screen Positive A Urine Fentanyl Screen Negative Ur Barbiturates Screen Negative U Amphetamin/Meth Scrn Negative U Benzodiazepines Scrn Negative U Cocaine Metab Screen Negative U Marijuana (THC) Screen Negative Quality Measures Quality Measures VTE prophylaxis Assessment & Plan Assessment Current Active Medications: Generic Name Dose Route Start Last Admin Trade Name Freq PRN Reason Stop Dose Admin Acetaminophen 650 mg 01/15/24 11:44 Acetaminophen 325 Mg Tablet PO 02/13/24 21:27 Q6H PRN Mild Pain or Fever >100.3 Hydrocodone Bitart/Acetaminophen 1 tab 01/15/24 11:43 01/15/24 20:11 Hydrocodone/Apap 5/325 Tablet PO 01/19/24 21:44 1 tab Q6HR PRN Administration PAIN SCALE 7-10 (Severe Apixaban 2.5 mg 01/15/24 09:00 01/15/24 20:12 Apixaban 2.5 Mg Tablet PO 02/14/24 08:59 2.5 mg BID BHANU Administration Aspirin 81 mg 01/15/24 09:00 01/15/24 08:24 Aspirin Ec 81 Mg Tabec PO 02/14/24 08:59 81 mg QDAY BHANU Administration Atorvastatin Calcium 20 mg 01/15/24 21:00 01/15/24 20:11 Atorvastatin Calcium 20 Mg Tablet PO 02/14/24 20:59 20 mg HS BHANU Administration Buspirone HCl 5 mg 01/15/24 09:00 01/15/24 20:11 Buspirone Hcl 5 Mg Tablet PO 02/14/24 08:59 5 mg BID BHANU Administration Dextrose 25 ml 01/14/24 21:46 Dextrose 50%-Water Inj 50 Ml Syringe IV 02/13/24 21:45 Q15MIN PRN BG 50-70 responsive npo pt Dextrose 50 ml 01/14/24 21:46 Dextrose 50%-Water Inj 50 Ml Syringe IV 02/13/24 21:45 Q15MIN PRN BG <50 OR BG <70 & pt unresponsive Digoxin 0.25 mg 01/15/24 09:00 01/15/24 08:24 Digoxin 0.125 Mg Tablet PO 02/14/24 08:59 0.25 mg QDAY BHANU Administration Doxycycline Hyclate 100 mg 01/15/24 09:00 01/15/24 20:11 Doxycycline 100 Mg Tablet PO 01/18/24 08:00 100 mg BID BHANU Administration Famotidine 40 mg 01/15/24 21:00 01/15/24 20:11 Famotidine 20 Mg Tablet PO 02/14/24 20:59 40 mg HS BHANU Administration Gabapentin 100 mg 01/15/24 09:00 01/15/24 08:24 Gabapentin 100 Mg Capsule PO 02/14/24 08:59 100 mg QDAY BHANU Administration Gabapentin 300 mg 01/15/24 21:00 01/15/24 20:11 Gabapentin 300 Mg Capsule PO 02/14/24 20:59 300 mg HS BHANU Administration Glucagon 1 mg 01/14/24 21:46 Glucagon Inj 1 Mg Vial IM Q15MIN PRN BG <70, and no IV access Insulin Human Lispro 0 unit 01/15/24 07:30 01/16/24 07:44 Insulin Lispro (Admelog) 1 Unit/0.01 Ml Unit SC 02/14/24 07:29 1 unit AC BHANU Administration Protocol Metoclopramide HCl 10 mg 01/14/24 21:28 Metoclopramide 5 Mg Tablet PO 02/13/24 21:29 Q6H PRN Nausea Or Vomiting Metoprolol Tartrate 50 mg 01/14/24 21:45 01/15/24 20:10 Metoprolol Tartrate 25 Mg Tablet PO 02/13/24 21:44 50 mg BID BHANU Administration Sennosides 1 tab 01/15/24 09:00 01/15/24 08:24 Senna Tablet PO 02/14/24 08:59 1 tab QDAY BHANU Administration Protocol Tramadol HCl 50 mg 01/15/24 11:43 01/15/24 17:20 Tramadol Hcl 50 Mg Tablet PO 01/19/24 21:44 50 mg Q6HR PRN Administration PAIN SCALE 4-6 (Moderate Valsartan 160 mg 01/15/24 09:00 01/15/24 10:20 Valsartan 80 Mg Tablet PO 02/14/24 08:59 160 mg QDAY BHANU Administration
[2024-01-16] MEDS: SENNA TABLET 1 TAB PO (10:15)
[2024-01-16] MEDS: APIXABAN 2.5 MG TABLET PO ×2 (10:15→20:25)
[2024-01-16] MEDS: BusPIRone HCL 5 MG TABLET PO ×2 (10:15→20:25)
[2024-01-16] MEDS: ASPIRIN EC 81 MG TABEC PO (10:15)
[2024-01-16] MEDS: DOXYCYCLINE 100 MG TABLET PO ×2 (10:15→20:25)
[2024-01-16] MEDS: VALSARTAN 80 MG TABLET 160 MG PO (10:16)
[2024-01-16] MEDS: METOPROLOL TARTRATE 25 MG TABLET 50 MG PO (10:16)
[2024-01-16] MEDS: DIGOXIN 0.125 MG TABLET 0.25 MG PO (10:16)
[2024-01-16] MEDS: GABAPENTIN 100 MG CAPSULE PO (10:17)
[2024-01-16] MEDS: traMADol HCL 50 MG TABLET PO (10:21)
[2024-01-16] MEDS: Magnesium Sulfate 2 GM Ivpb 2 GM/50 ML BAG IV (10:21)
[2024-01-16] MEDS: HYDROcodone/APAP 5/325 TABLET 1 TAB PO ×2 (12:51→20:25)
--- NOTE | 2024-01-16 13:54 | PD.RESDS ---
Planned Discharge Date 01/16/24 DS: Providers Provider Date of admission: 01/14/24 18:00 Primary care physician: Physician No Primary/Family Admitting Provider: Vijay Scruggs MD Attending Provider on Admission: Robin Connelly MD Consults: 01/14/24 21:52 Referral Physical Therapy Routine Comment: Physician Instructions: 01/14/24 23:25 Referral Wound Care Routine Comment: Attending Provider on DC: Shaun Moyer MD Discharging Provider: Shaun Moyer MD Hospital Course Hospital Course Hospital course: Patient is a 63 year old female with a past medical history of Hypertension, Hyperlipidemia, Diabetes Mellitus Type 2 Inuslin Dependent, COPD, CHF, atrial fibrillation, Diabetic Foot Ulcer w/ PAD s/p Debridement 12/09/2023, history of femoral endarterectomy by Dr. Marie. Patient was transfered from [facility] back to [place] on (01/14/2024) s/p peripheral revascularization and angiogram of right common femoral arter. Patient was initially transfered to [facility] on 01/01/2024 directly form ER. Patient admitted overnight and no acute events reported by patient. Patient examined at [facility]. Patient denied any lowere extremity pain. Denied chills or pyrexia. Denied chest pain or SOB. Time Spent with Patient Time attestation: Total time spent providing and/or coordinating discharge services: Exam Vital Signs Temp Pulse Resp BP Pulse Ox O2 Del Method 98.6 F 68 17 143/62 H 97 Room Air 01/16/24 11:30 01/16/24 11:30 01/16/24 11:30 01/16/24 11:30 01/16/24 11:30 01/16/24 11:30 Discharge Plan Plan Patient Disposition: Xfer Skilled g Fac (SNF) Care Plan Goals: You have been started on antibiotic doxycycline. Please take 1 tablet twice a day for 1 more day to complete the course. Please continue to take the rest of your medications as prescribed below. Please continue to work with physical therapy while you are at the [facility] facility Please follow-up with vascular surgery at [facility] within 1 week of discharge. If you experience any new or worsening of symptoms please either call your primary care doctor, or dial 911 or present to the emergency room Prescriptions/Referrals Prescriptions/Med Rec: New Eliquis 2.5 mg Tablet 2.5 mg PO BID Qty: 60 0RF buspirone 5 mg Tablet 5 mg PO BID Qty: 30 0RF atorvastatin 20 mg Tablet 20 mg PO HS Qty: 30 0RF valsartan 80 mg Tablet 160 mg PO QDAY Qty: 30 0RF aspirin 81 mg Tablet,Delayed Release (Dr/Ec) 81 mg PO QDAY 30 Days Qty: 30 0RF famotidine 20 mg Tablet 40 mg PO HS 30 Days Qty: 60 0RF metoclopramide HCl 5 mg Tablet 10 mg PO Q6H PRN (Reason: Nausea Or Vomiting) 30 Days Qty: 30 0RF gabapentin 300 mg Capsule 300 mg PO HS Qty: 30 0RF digoxin 125 mcg (0.125 mg) Tablet 0.25 mg PO QDAY Qty: 30 0RF gabapentin 100 mg Capsule 100 mg PO QDAY Qty: 30 0RF doxycycline hyclate 100 mg Tablet 100 mg PO BID 1 Days Qty: 2 0RF metoprolol tartrate 25 mg Tablet 50 mg PO BID Qty: 30 0RF Referrals: No Primary/Family,Physician [Primary Care Provider] - Patient/Caregiver Discharge Instructions Print Language: Amharic Stand Alone Forms: Gaby Award Info., Patient Portal Info Letter Discharge Order Discharge Orders: Discharge (Routine); Ordered 01/16/24 Ordered By: Nichelle Breaux
--- NOTE | 2024-01-16 15:37 | PC.SS ---
[employer] followed up with pt regarding acceptance SNF's facilities and pt stated that she wanted to go to [facility], pt is pending PT eval.
--- NOTE | 2024-01-16 16:26 | PD.RESPRO ---
Documentation for date of: 01/16/24 Exam Vital Signs Temp Pulse Resp BP Pulse Ox O2 Del Method 97.4 F 62 18 125/59 L 98 Room Air 01/16/24 15:52 01/16/24 15:52 01/16/24 15:52 01/16/24 15:52 01/16/24 15:52 01/16/24 11:30 Objective Labs 01/16/24 05:24 01/16/24 05:24 Labs: Laboratory Results - last 24 hr 01/16/24 05:24 WBC 12.9 H RBC 3.32 L Hgb 9.4 L Hct 29.7 L MCV 90 MCH 28.3 MCHC 31.6 RDW Std Deviation 55.1 H Plt Count 573 H D Neut % (Auto) 60 Lymph % (Auto) 25 [place] % (Auto) 10 Eos % (Auto) 1 Baso % (Auto) 0 Neut # (Auto) 7.8 H Lymph # (Auto) 3.2 [place] # (Auto) 1.3 H Eos # (Auto) 0.1 Baso # (Auto) 0.0 Immature Gran # (Auto) 0.50 H Absolute Nucleated RBC 0.03 H Immature Gran % 4 H Nucleated RBC % 0 Sodium 134 L Potassium 5.0 D Chloride 102 Carbon Dioxide 25.9 Anion Gap 6 L BUN 24 H Creatinine 0.9 Estim Creat Clear Calc Not Performed. eGFR > 60 BUN/Creatinine Ratio 27 H Glucose 141 H Calculated Osmolality 274 L Calcium 8.5 Corrected Calcium 8.9 Phosphorus 2.9 Magnesium 1.9 Total Bilirubin 0.4 AST 31 ALT 13 Alkaline Phosphatase 73 Total Protein 6.3 Albumin 3.5 Globulin 2.8 Albumin/Globulin Ratio 1.3 Quality Measures Quality Measures VTE prophylaxis Assessment & Plan Assessment Current Active Medications: Generic Name Dose Route Start Last Admin Trade Name Freq PRN Reason Stop Dose Admin Acetaminophen 650 mg 01/15/24 11:44 Acetaminophen 325 Mg Tablet PO 02/13/24 21:27 Q6H PRN Mild Pain or Fever >100.3 Hydrocodone Bitart/Acetaminophen 1 tab 01/15/24 11:43 01/16/24 12:51 Hydrocodone/Apap 5/325 Tablet PO 01/19/24 21:44 1 tab Q6HR PRN Administration PAIN SCALE 7-10 (Severe Apixaban 2.5 mg 01/15/24 09:00 01/16/24 10:15 Apixaban 2.5 Mg Tablet PO 02/14/24 08:59 2.5 mg BID BHANU Administration Aspirin 81 mg 01/15/24 09:00 01/16/24 10:15 Aspirin Ec 81 Mg Tabec PO 02/14/24 08:59 81 mg QDAY BHANU Administration Atorvastatin Calcium 20 mg 01/15/24 21:00 01/15/24 20:11 Atorvastatin Calcium 20 Mg Tablet PO 02/14/24 20:59 20 mg HS BHANU Administration Buspirone HCl 5 mg 01/15/24 09:00 01/16/24 10:15 Buspirone Hcl 5 Mg Tablet PO 02/14/24 08:59 5 mg BID BHANU Administration Dextrose 25 ml 01/14/24 21:46 Dextrose 50%-Water Inj 50 Ml Syringe IV 02/13/24 21:45 Q15MIN PRN BG 50-70 responsive npo pt Dextrose 50 ml 01/14/24 21:46 Dextrose 50%-Water Inj 50 Ml Syringe IV 02/13/24 21:45 Q15MIN PRN BG <50 OR BG <70 & pt unresponsive Digoxin 0.25 mg 01/15/24 09:00 01/16/24 10:16 Digoxin 0.125 Mg Tablet PO 02/14/24 08:59 0.25 mg QDAY BHANU Administration Doxycycline Hyclate 100 mg 01/15/24 09:00 01/16/24 10:15 Doxycycline 100 Mg Tablet PO 01/18/24 08:00 100 mg BID BHANU Administration Famotidine 40 mg 01/15/24 21:00 01/15/24 20:11 Famotidine 20 Mg Tablet PO 02/14/24 20:59 40 mg HS BHANU Administration Gabapentin 100 mg 01/15/24 09:00 01/16/24 10:17 Gabapentin 100 Mg Capsule PO 02/14/24 08:59 100 mg QDAY BHANU Administration Gabapentin 300 mg 01/15/24 21:00 01/15/24 20:11 Gabapentin 300 Mg Capsule PO 02/14/24 20:59 300 mg HS BHANU Administration Glucagon 1 mg 01/14/24 21:46 Glucagon Inj 1 Mg Vial IM Q15MIN PRN BG <70, and no IV access Insulin Human Lispro 0 unit 01/15/24 07:30 01/16/24 12:37 Insulin Lispro (Admelog) 1 Unit/0.01 Ml Unit SC 02/14/24 07:29 1 unit AC BHANU Administration Protocol Metoclopramide HCl 10 mg 01/14/24 21:28 Metoclopramide 5 Mg Tablet PO 02/13/24 21:29 Q6H PRN Nausea Or Vomiting Metoprolol Tartrate 50 mg 01/14/24 21:45 01/16/24 10:16 Metoprolol Tartrate 25 Mg Tablet PO 02/13/24 21:44 50 mg BID BHANU Administration Sennosides 1 tab 01/15/24 09:00 01/16/24 10:15 Senna Tablet PO 02/14/24 08:59 1 tab QDAY BHANU Administration Protocol Tramadol HCl 50 mg 01/15/24 11:43 01/16/24 10:21 Tramadol Hcl 50 Mg Tablet PO 01/19/24 21:44 50 mg Q6HR PRN Administration PAIN SCALE 4-6 (Moderate Valsartan 160 mg 01/15/24 09:00 01/16/24 10:16 Valsartan 80 Mg Tablet PO 02/14/24 08:59 160 mg QDAY BHANU Administration
--- NOTE | 2024-01-16 16:33 | ESDS_ITS ---
<Statement entered by Vijay Scruggs MD - 01/16/24 17:14> I have discussed and was present for the essential components of the history, physical examination, diagnosis, and treatment plan with the resident. I agree with the patient's care as documented by the resident and amended herein by me. Vijay Scruggs MD FACP. Planned Discharge Date 01/16/24 DS: Providers Provider Date of admission: 01/14/24 18:00 Primary care physician: Physician No Primary/Family Admitting Provider: Vijay Scruggs MD Attending Provider on Admission: Robin Connelly MD Consults: 01/14/24 21:52 Referral Physical Therapy Routine Comment: Physician Instructions: 01/14/24 23:25 Referral Wound Care Routine Comment: Attending Provider on DC: Shaun Moyer MD Discharging Provider: Shaun Moyer MD DS: Diagnosis Problem List Completed Was Problem List Reviewed/Reconciled?: Yes Hospital Course Hospital Course Hospital course: 63-year-old female with past medical history of femoral endarterectomy, atrial fibrillation, insulin-dependent type 2 diabetes, history of DVT, CHF, hyperlipidemia, hypertension transferring from [facility] ([place], [place]) after completing peripheral revascularization and angiogram of right common femoral artery. Patient initially presented to [facility] on 12/31 with worsening right foot pain along with ischemic changes noted; found to have right femoral artery occlusion and was transferred to [facility] for vascular surgery needs. Of note, patient underwent right common femoral endar terectomy sometime in September but presented to [facility] with the pain after she trimmed her toenail and started to develop ischemia of the right great toe. Surgery was completed on 01/02/[address] King without any acute complications postoperatively. On 01/14/2024 patient is transferring back to [facility] after being stable, chronic medical conditions controlled and requiring placement. Upon return to [facility] patient received PT and placement to SNF. All patient's labs have now returned to baseline and patient is clinically stable and fit for discharge to SNF. Discharge diagnoses: 1. Peripheral arterial disease s/p right femoropopliteal bypass 2. 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 Blood loss anemia s/p PRBC transfusion 4. Paroxysmal atrial fibrillation?rate controlled and anticoagulated with Eliquis 5. History of DVT 6. Prevotella bacteremia completed antibiotic course 7. Insulin-dependent diabetes mellitus type 2 8. Diabetic neuropathy 9. Chronic systolic congestive heart failure with reduced ejection fraction [25-30%] 10. Mild pulmonary hypertension 11. Essential hypertension 12. Hyperlipidemia 13. Generalized anxiety Discharge plan: ? You have been started on antibiotic doxycycline. Please take 1 tablet twice daily for 1 day to complete antibiotic course. ? Continue to work with physical therapy at [facility] ? Please make a follow-up appointment with the vascular surgeon who did your surgery within 1 week of discharge. ? Recommended to follow-up with your primary care doctor within 1 week of discharge ? If you experience any new, persistent or worsening of symptoms please either call your primary doctor, dial 911 or present to the emergency room. We are grateful to be able to participate in Ms. Mckeon's care. We wish her the best. Plan of care discussed with Attending Dr. Scruggs and PGY3 Dr. Namita Moyer MD PGY 1 Time Spent with Patient Time attestation: Total time spent providing and/or coordinating discharge services: Time spent: Greater than 30 minutes (35) Exam Vital Signs Temp Pulse Resp BP Pulse Ox O2 Del Method 97.4 F 62 18 125/59 L 98 Room Air 01/16/24 15:52 01/16/24 15:52 01/16/24 15:52 01/16/24 15:52 01/16/24 15:52 01/16/24 11:30 Narrative Exam General Appearance: Alert & Oriented X3, well-nourished female who is lying in bed in no acute distress HEENT: Skull symmetrical and atraumatic. Conjunctivae pin and moist. Pupils equal, round, reactive to light and accommodation (PERRL). External ear without lesion or discharge. Straight, nares patient, mucosa pink, no discharge. No thyroid nodule appreciated. No cervical lymphadenopathy. Cardio: Normal Rate and Rhythm with S1 and S2 heart sounds. No murmurs or extra heart sounds auscultated. No bruits on carotid auscultation. No peripheral edema or cyanosis. Lungs: Symmetric with good expansion. Chest and back non-tender. Breath sounds vesicular without crackles, wheezing or rhonchi Abdomen: Non-tender, Non-distended, Normal Reactive Bowel Sounds Neuro: Alert, cooperative, oriented to person, place, and time. Speech clear. CN grossly intact. Upper motor strength 5/5 and Lower motor strength 5/5. Sensation intact. Skin: Bandage on popliteal area right leg, bandage covering right foot. Discharge Plan Plan Patient Disposition: Xfer Skilled g Fac (SNF) Care Plan Goals: You have been started on antibiotic doxycycline. Please take 1 tablet twice a day for 1 more day to complete the course. Please continue to take the rest of your medications as prescribed below. Please continue to work with physical therapy while you are at the care home facility Please follow-up with vascular surgery at [facility] within 1 week of discharge. If you experience any new or worsening of symptoms please either call your primary care doctor, or dial 911 or present to the emergency room Prescriptions/Referrals Prescriptions/Med Rec: New Eliquis 2.5 mg Tablet 2.5 mg PO BID Qty: 60 0RF buspirone 5 mg Tablet 5 mg PO BID Qty: 30 0RF atorvastatin 20 mg Tablet 20 mg PO HS Qty: 30 0RF valsartan 80 mg Tablet 160 mg PO QDAY Qty: 30 0RF aspirin 81 mg Tablet,Delayed Release (Dr/Ec) 81 mg PO QDAY 30 Days Qty: 30 0RF famotidine 20 mg Tablet 40 mg PO HS 30 Days Qty: 60 0RF metoclopramide HCl 5 mg Tablet 10 mg PO Q6H PRN (Reason: Nausea Or Vomiting) 30 Days Qty: 30 0RF gabapentin 300 mg Capsule 300 mg PO HS Qty: 30 0RF digoxin 125 mcg (0.125 mg) Tablet 0.25 mg PO QDAY Qty: 30 0RF gabapentin 100 mg Capsule 100 mg PO QDAY Qty: 30 0RF doxycycline hyclate 100 mg Tablet 100 mg PO BID 1 Days Qty: 2 0RF metoprolol tartrate 25 mg Tablet 50 mg PO BID Qty: 30 0RF Referrals: No Primary/Family,Physician [Primary Care Provider] - Patient/Caregiver Discharge Instructions Print Language: Pashto Stand Alone Forms: Gaby Award Info., Patient Portal Info Letter Discharge Order Discharge Orders: Discharge (Routine); Ordered 01/16/24 Ordered By: Nichelle Breaux Quality Discharge Quality Measures VTE prophylaxis
[2024-01-16] MEDS: GABAPENTIN 300 MG CAPSULE PO (20:25)
[2024-01-16] MEDS: FAMOTIDINE 20 MG TABLET 40 MG PO (20:25)
[2024-01-16] MEDS: ATORVASTATIN CALCIUM 20 MG TABLET PO (20:25)
[2024-01-17] VITALS (12 sets, daily range): BP systolic 103–147; BP diastolic 56–82; PULSE 60–91; RESP 16–97; TEMP 36.2–37; O2SAT 97–99
[2024-01-17] MEDS: HYDROcodone/APAP 5/325 TABLET 1 TAB PO ×3 (06:10→21:51)
[2024-01-17 06:15] LABS: Basophils % (Auto) 0 % (0-2.5); Eosinophils # (Auto) 0.1 Thou/mm3 (0.0-0.5); Eosinophils % (Auto) 1 % (0-10); Hematocrit 30.6 % (36.0-46.0); Hemoglobin 9.5 g/dL (12.0-16.0); Immature Granulocytes % (Auto) 3 % (0-0); Immature Granulocytes Auto 0.35 Thou/mm3 (0.00-0.00); Lymphocytes # (Auto) 2.3 Thou/mm3 (1.0-4.8); Lymphocytes % (Auto) 20 % (10-50); Mean Corpuscular Hemoglobin 27.9 pg (25.0-35.0); Mean Corpuscular Volume 90 fL (80-100); Monocytes # (Auto) 1.3 Thou/mm3 (0.0-0.8); Monocytes % (Auto) 11 % (0-12); Neutrophils # (Auto) 7.2 Thou/mm3 (1.8-7.7); Neutrophils % (Auto) 64 % (37-80); Nucleated Red Blood Cell % 0 /100 WBC (0); Platelet Count 551 Thou/mm3 (140-440); RDW Standard Deviation 57.2 fL (36.4-46.3); White Blood Count 11.3 Thou/mm3 (3.6-11.0)
[2024-01-17 06:32] LABS: Alanine Aminotransferase 13 U/L (10-49); Albumin, Serum 3.4 gm/dL (3.4-4.8); Albumin/Globulin Ratio 1.3 (1.2-2.2); Alkaline Phosphatase 77 U/L (46-116); Anion Gap 6 (7-16); Aspartate Amino Transferase 25 U/L (0-34); BUN/Creatinine Ratio 27 Ratio (12-20); Bilirubin,Total 0.4 mg/dL (0.3-1.2); Blood Urea Nitrogen 27 mg/dL (9-23); Calcium 8.6 mg/dL (8.3-10.6); Calcium (Corrected) 9.1 mg/dL (8.5-10.1); Carbon Dioxide 26.5 mMol/L (20.0-31.0); Chloride 102 mMol/L (98-107); Globulin 2.6 gm/dL (2.3-3.5); Glucose 171 mg/dL (74-106); Magnesium 1.9 mg/dL (1.6-2.6); Osmolality,Calculated 277 (275-295); Phosphorous 3.7 mg/dL (2.4-5.1); Potassium 4.2 mMol/L (3.4-5.1); Sodium 134 mMol/L (136-145); eGFR > 60 See Note
[2024-01-17] MEDS: INSULIN LISPRO (AdmeLOG) 1 UNIT/0.01 ML UNIT SC ×3 (08:26→17:48)
[2024-01-17] MEDS: APIXABAN 2.5 MG TABLET PO ×2 (08:33→20:33)
[2024-01-17] MEDS: VALSARTAN 80 MG TABLET 160 MG PO (08:33)
[2024-01-17] MEDS: DIGOXIN 0.125 MG TABLET 0.25 MG PO (08:33)
[2024-01-17] MEDS: BusPIRone HCL 5 MG TABLET PO ×2 (08:33→20:33)
[2024-01-17] MEDS: GABAPENTIN 100 MG CAPSULE PO (08:33)
[2024-01-17] MEDS: SENNA TABLET 1 TAB PO (08:33)
[2024-01-17] MEDS: DOXYCYCLINE 100 MG TABLET PO ×2 (08:34→20:33)
[2024-01-17] MEDS: METOPROLOL TARTRATE 25 MG TABLET 50 MG PO ×2 (08:34→20:34)
[2024-01-17] MEDS: ASPIRIN EC 81 MG TABEC PO (08:34)
--- NOTE | 2024-01-17 09:37 | PC.SS ---
Patient Edwina Mckeon is a 63 Year old female admitted for Occlusion and stenosis of bilateral plata. SS met with patient at bedside to complete initial assessment. Patient reports she lives at home with her life partner, Elgin Vance who is her medical decision maker [phone]. Patient reports that prior to admission she utilized a wheel chair and walker to assist with ambulation. Patient is able to complete ADL's independently. Choice of pharmacy is [facility]. PCP is Gregorio Amaya. At time of discharge patient will discharge to [facility]. Patient is pending PT eval for auth to be submitted. Discharge plan: [facility] Next of Kin: Life partner, Eglin Vance [phone]
--- NOTE | 2024-01-17 14:05 | PC.SS ---
Addendum entered by Khushboo Mathur 01/17/24 16:00: SS faxed PT notes to Anya from [facility]. Auth is pending at the time. Original Note: Rounding note; Patient is pending PT note in order for auth to be submitted. SS will need to send to [facility] once PT note is available.
--- NOTE | 2024-01-17 15:37 | ESPR_ITS ---
<Statement entered by Armen Robbins MD - 01/17/24 18:21> Patient was seen and examined at the bedside. Patient is currently doing well and still reported to have pain in the right foot since amputation. We are waiting on insurance authorization for SNF placement. Patient is passing bowel movements. Labs were stable. All labs and orders were reviewed. I saw and examined the patient, and I agree with current management stated by Dr Rd MD,PGY1. Plan of care was discussed with the attending physician and resident physician. Disclaimer: Despite multiple revisions, due to the dictation software being used, the document bellow may not be free of grammatical errors including phonetic/typographic errors. However, this does not deter from our commitment to providing health care in the patient's best interest in mind. Dr. Rosendo MD, PGY 2 Documentation for date of: 01/17/24 Subjective Subjective Interval history: Patient is a 63 year old female with a past medical history of Hypertension, Hyperlipidemia, Diabetes Mellitus Type 2 Inuslin Dependent, COPD, CHF, atrial fibrillation, Diabetic Foot Ulcer w/ PAD s/p Debridement 12/09/2023, history of femoral endarterectomy by Dr. Marie. Patient was transfered from [facility] back to [place] on (01/14/2024) s/p peripheral revascularization and angiogram of right common femoral arter. Patient was initially transfered to [facility] on 01/01/2024 directly form ER. Patient admitted overnight and no acute events reported by patient. Patient examined at beside. This morning patient stated, that despite gabapentin, she still experienced mild discomfort. Patient is still not ambulating. Denied chills or pyrexia. Denied chest pain or SOB. Pending SNF. Exam Vital Signs Temp Pulse Resp BP Pulse Ox O2 Del Method 97.2 F 77 17 103/73 98 Room Air 01/17/24 15:36 01/17/24 15:36 01/17/24 15:36 01/17/24 15:36 01/17/24 15:36 01/17/24 15:36 Narrative Exam General Appearance: Alert & Oriented X3, well-nourished female who is lying in bed in no acute distress, mild right lower extremity pain HEENT: Skull symmetrical and atraumatic. Conjunctivae pin and moist. Pupils equal, round, reactive to light and accommodation (PERRL). External ear without lesion or discharge. Straight, nares patient, mucosa pink, no discharge. No thyroid nodule appreciated. No cervical lymphadenopathy. Cardio: Normal Rate and Rhythm with S1 and S2 heart sounds. No murmurs or extra heart sounds auscultated. No bruits on carotid auscultation. No peripheral edema or cyanosis. Lungs: Symmetric with good expansion. Chest and back non-tender. Breath sounds vesicular without crackles, wheezing or rhonchi Abdomen: Non-tender, Non-distended, Normal Reactive Bowel Sounds Neuro: Alert, cooperative, oriented to person, place, and time. Speech clear. CN grossly intact. Upper motor strength 5/5 and Lower motor strength 5/5. Sensation intact. Objective Labs 01/18/24 04:48 01/18/24 04:48 Labs: Laboratory Results - last 24 hr 01/17/24 05:47 WBC 11.3 H RBC 3.40 L Hgb 9.5 L Hct 30.6 L MCV 90 MCH 27.9 MCHC 31.0 RDW Std Deviation 57.2 H Plt Count 551 H Neut % (Auto) 64 Lymph % (Auto) 20 Spink % (Auto) 11 Eos % (Auto) 1 Baso % (Auto) 0 Neut # (Auto) 7.2 Lymph # (Auto) 2.3 Spink # (Auto) 1.3 H Eos # (Auto) 0.1 Baso # (Auto) 0.0 Immature Gran # (Auto) 0.35 H Absolute Nucleated RBC 0.00 Immature Gran % 3 H Nucleated RBC % 0 Sodium 134 L Potassium 4.2 D Chloride 102 Carbon Dioxide 26.5 Anion Gap 6 L BUN 27 H Creatinine 1.0 Estim Creat Clear Calc Not Performed. eGFR > 60 BUN/Creatinine Ratio 27 H Glucose 171 H Calculated Osmolality 277 Calcium 8.6 Corrected Calcium 9.1 Phosphorus 3.7 Magnesium 1.9 Total Bilirubin 0.4 AST 25 ALT 13 Alkaline Phosphatase 77 Total Protein 6.0 Albumin 3.4 Globulin 2.6 Albumin/Globulin Ratio 1.3 Quality Measures Quality Measures VTE prophylaxis Advance care planning discussed with:: patient Assessment & Plan Assessment Current Active Medications: Generic Name Dose Route Start Last Admin Trade Name Freq PRN Reason Stop Dose Admin Acetaminophen 650 mg 01/15/24 11:44 Acetaminophen 325 Mg Tablet PO 02/13/24 21:27 Q6H PRN Mild Pain or Fever >100.3 Hydrocodone Bitart/Acetaminophen 1 tab 01/15/24 11:43 01/17/24 06:10 Hydrocodone/Apap 5/325 Tablet PO 01/19/24 21:44 1 tab Q6HR PRN Administration PAIN SCALE 7-10 (Severe Apixaban 2.5 mg 01/15/24 09:00 01/17/24 08:33 Apixaban 2.5 Mg Tablet PO 02/14/24 08:59 2.5 mg BID BHANU Administration Aspirin 81 mg 01/15/24 09:00 01/17/24 08:34 Aspirin Ec 81 Mg Tabec PO 02/14/24 08:59 81 mg QDAY BHANU Administration Atorvastatin Calcium 20 mg 01/15/24 21:00 01/16/24 20:25 Atorvastatin Calcium 20 Mg Tablet PO 02/14/24 20:59 20 mg HS BHANU Administration Buspirone HCl 5 mg 01/15/24 09:00 01/17/24 08:33 Buspirone Hcl 5 Mg Tablet PO 02/14/24 08:59 5 mg BID BHANU Administration Dextrose 25 ml 01/14/24 21:46 Dextrose 50%-Water Inj 50 Ml Syringe IV 02/13/24 21:45 Q15MIN PRN BG 50-70 responsive npo pt Dextrose 50 ml 01/14/24 21:46 Dextrose 50%-Water Inj 50 Ml Syringe IV 02/13/24 21:45 Q15MIN PRN BG <50 OR BG <70 & pt unresponsive Digoxin 0.25 mg 01/15/24 09:00 01/17/24 08:33 Digoxin 0.125 Mg Tablet PO 02/14/24 08:59 0.25 mg QDAY BHANU Administration Doxycycline Hyclate 100 mg 01/15/24 09:00 01/17/24 08:34 Doxycycline 100 Mg Tablet PO 01/18/24 08:00 100 mg BID BHANU Administration Famotidine 40 mg 01/15/24 21:00 01/16/24 20:25 Famotidine 20 Mg Tablet PO 02/14/24 20:59 40 mg HS BHANU Administration Gabapentin 100 mg 01/15/24 09:00 01/17/24 08:33 Gabapentin 100 Mg Capsule PO 02/14/24 08:59 100 mg QDAY BHANU Administration Gabapentin 300 mg 01/15/24 21:00 01/16/24 20:25 Gabapentin 300 Mg Capsule PO 02/14/24 20:59 300 mg HS BHANU Administration Glucagon 1 mg 01/14/24 21:46 Glucagon Inj 1 Mg Vial IM Q15MIN PRN BG <70, and no IV access Insulin Human Lispro 0 unit 01/15/24 07:30 01/17/24 12:03 Insulin Lispro (Admelog) 1 Unit/0.01 Ml Unit SC 02/14/24 07:29 1 unit AC BHANU Administration Protocol Metoclopramide HCl 10 mg 01/14/24 21:28 Metoclopramide 5 Mg Tablet PO 02/13/24 21:29 Q6H PRN Nausea Or Vomiting Metoprolol Tartrate 50 mg 01/14/24 21:45 01/17/24 08:34 Metoprolol Tartrate 25 Mg Tablet PO 02/13/24 21:44 50 mg BID BHANU Administration Sennosides 1 tab 01/15/24 09:00 01/17/24 08:33 Senna Tablet PO 02/14/24 08:59 1 tab QDAY BHANU Administration Protocol Tramadol HCl 50 mg 01/15/24 11:43 01/16/24 10:21 Tramadol Hcl 50 Mg Tablet PO 01/19/24 21:44 50 mg Q6HR PRN Administration PAIN SCALE 4-6 (Moderate Valsartan 160 mg 01/15/24 09:00 01/17/24 08:33 Valsartan 80 Mg Tablet PO 02/14/24 08:59 160 mg QDAY [facility] Administration Plan Patient is a 63 year old female with a past medical history of Hypertension, Hyperlipidemia, Diabetes Mellitus Type 2 Inuslin Dependent, COPD, CHF, atrial fibrillation, Diabetic Foot Ulcer w/ PAD s/p Debridement 12/09/2023, history of femoral endarterectomy by Dr. Marie. Patient was transfered from [facility] back to [place] on (01/14/2024) s/p peripheral revascularization and angiogram of right common femoral arter. Patient was initially transfered to [facility] on 01/01/2024 directly form ER. Pending SNF. #Right peripheral artery disease s/p femoropopliteal bypass #Gangrene of R toe s/p amputation of r hallux History of Endarterectomy femoral artery (right) on 10/07/2023 Patient had surgery at [facility] on 01/[address] King without any acute complications POD#12 Plan: -Physical Therapy Pending* Pain controlled Tylenol 650 mg PO Q6HR PRN (Mild Pain or Fever), [place], tramadol Monitor for any acute changes to circulation Need SNF s/p surgery Follow-up with Dr. Lanza for wound care Weight-bearing in surgical shoe Change dressings daily Keep dressings clean and dry #Prevotella bacteremia, completed abx course 7 days of Zosyn and Doxycycline (started on 01/10 to end on 01/16) Plan: Continue Doxycycline until 01/16-D/C tomorrow morning. Monitor for any new signs of sepsis #History of Chronic CHF, HFrEF #Hyperlipidemia Per chart review history of CHF. Patient does not appear to be in acute exacerbation but has significant co-morbidities contributing to CHF-DM, HTN, HLD Diagnostics: Echo from 2019 shows: Normal left ventricular size with mild LVH. Approximate ejection fraction is 25-30%. Moderate mitral regurgitation. Mild pulmonic and tricuspid regurgitation noted. Mild pulmonary hypertension Plan: -Atorvastatin 20 mg PO HS -Digoxin 0.25 mg PO QDay -Metoprolol Tartrate 50 mg PO BID -Consider TSH and Lipid panel pending echo -ECHO -pending #Atrial fibrillation, rate controlled #DVT on Eliquis CHADVaSc score of 6 points Stroke risk was 9.7% per year in >90,000 patients (the [place] Atrial Fibrillation Cohort Study) and 13.6% risk of stroke/TIA/systemic embolism Patient's on Digoxin 0.25mg po daily and Metoprolol tartrate 25mg po bid Plan: Continue Eliquis 2.5mg po BID (patient had bleeding; [facility] dose reduced) Continue home meds #Insulin dependent, type 2 diabetes mellitus #Diabetic neuropathy #hx of Diabetic Foot Ulcer On home Lantus 40u and gabapentin 100 in the morning and 300 at night Diagnostic: -A1c 7.5% -Fasting Glucose (01/15/2024) 137 -Following total Lispr tomorrow. Plan: -SSI -Continue home gabapentin #Hypertension History of HTN. Blood pressure on admission Plan -Continue home dose medication of Valsartan 160 mg PO QDay #Generalized Anxiety On home Buspar 5mg po bid Plan: Restarted home medication #Blood loss anemia s/p transfusion Patient's Hgb was 6.5 on 01/11; recieved 1u of pRBC No signs of GI bleed Plan: Follow-up with morning labs Health Maintenance: Disp: Pt is currently admitted to floors for further management of S/p femoropoliteal bypass, awaiting SNF placement FEN: Cardiac/low carb consistent low DVT: Eliquis 2.5 mg BID Code: Full code - The patient's plan was discussed with attending Dr. Reardon and senior residents Dr. Rosendo Sultana MD PGY1 Internal Medicine Attending Provider Attestation/Addendum I have discussed and was present for the essential components of the history, physical examination, diagnosis, and treatment plan with the resident. I agree with the patient's care as documented by the resident and amended herein by me. Elgin Reardon DO. Although this document has been carefully reviewed, there may still be some phonetic and other typographical errors. These errors are purely grammatical due to imperfections in the software program and should not be construed in any way to compromise the substance of the patient's medical care during this visit.
--- NOTE | 2024-01-17 16:07 | PC.SS ---
Patient is supposed to discharge to [facility], however Anya from [facility] informed me that Patient?s insurance has not been notified that patient was admitted to [facility], therefore are asking for utilization review to send information to patient's insurance. They reported they did not know patient was at our hospital. and contact number is [phone]. Anya from [facility] could not submit for auth until clinicals are submitted.
--- NOTE | 2024-01-17 16:16 | PC.SS ---
Patient is supposed to discharge to [facility], however Anya from [facility] informed me that Patient?s insurance has not been notified that patient was admitted to [facility], therefore are asking for utilization review to send information to patient's insurance and reported they were not aware and notified that patient was admitted to our hospital. and contact number is [phone]. Anya from [facility] could not submit for auth until issue is resolved.
[2024-01-17] MEDS: ATORVASTATIN CALCIUM 20 MG TABLET PO (20:33)
[2024-01-17] MEDS: traMADol HCL 50 MG TABLET PO (20:33)
[2024-01-17] MEDS: FAMOTIDINE 20 MG TABLET 40 MG PO (20:33)
[2024-01-17] MEDS: GABAPENTIN 300 MG CAPSULE PO (20:33)
[2024-01-18] VITALS (9 sets, daily range): BP systolic 139–159; BP diastolic 66–76; PULSE 61–82; RESP 17–95; TEMP 36.1–36.6; O2SAT 93–97; BMI 22.8
[2024-01-18 06:14] LABS: Basophils % (Auto) 0 % (0-2.5); Eosinophils # (Auto) 0.2 Thou/mm3 (0.0-0.5); Eosinophils % (Auto) 1 % (0-10); Hemoglobin 9.1 g/dL (12.0-16.0); Immature Granulocytes % (Auto) 2 % (0-0); Immature Granulocytes Auto 0.21 Thou/mm3 (0.00-0.00); Lymphocytes % (Auto) 25 % (10-50); Mean Corpuscular HGB Conc 31.4 g/dl (31.0-37.0); Mean Corpuscular Hemoglobin 27.8 pg (25.0-35.0); Mean Corpuscular Volume 89 fL (80-100); Monocytes # (Auto) 1.5 Thou/mm3 (0.0-0.8); Monocytes % (Auto) 12 % (0-12); Neutrophils # (Auto) 7.2 Thou/mm3 (1.8-7.7); Neutrophils % (Auto) 60 % (37-80); Nucleated Red Blood Cell % 0 /100 WBC (0); Platelet Count 553 Thou/mm3 (140-440); RDW Standard Deviation 63.3 fL (36.4-46.3); Red Blood Count 3.27 Miln/mm3 (4.00-5.20)
[2024-01-18 06:40] LABS: Alanine Aminotransferase 13 U/L (10-49); Albumin, Serum 3.3 gm/dL (3.4-4.8); Albumin/Globulin Ratio 1.2 (1.2-2.2); Alkaline Phosphatase 87 U/L (46-116); Anion Gap 8 (7-16); Aspartate Amino Transferase 24 U/L (0-34); BUN/Creatinine Ratio 30 Ratio (12-20); Bilirubin,Total 0.3 mg/dL (0.3-1.2); Blood Urea Nitrogen 27 mg/dL (9-23); Calcium 8.5 mg/dL (8.3-10.6); Calcium (Corrected) 9.1 mg/dL (8.5-10.1); Carbon Dioxide 24.1 mMol/L (20.0-31.0); Chloride 103 mMol/L (98-107); Creatinine (Component) 0.9 mg/dL (0.6-1.3); Estimated Creatinine Clearance 58.3 mL/min (>60); Globulin 2.7 gm/dL (2.3-3.5); Glucose 212 mg/dL (74-106); Magnesium 1.7 mg/dL (1.6-2.6); Osmolality,Calculated 281 (275-295); Phosphorous 2.8 mg/dL (2.4-5.1); Potassium 4.4 mMol/L (3.4-5.1); Sodium 135 mMol/L (136-145); eGFR > 60 See Note
[2024-01-18] MEDS: INSULIN LISPRO (AdmeLOG) 1 UNIT/0.01 ML UNIT SC ×2 (07:27→11:13)
[2024-01-18] MEDS: traMADol HCL 50 MG TABLET PO (07:35)
[2024-01-18] MEDS: VALSARTAN 80 MG TABLET 160 MG PO (08:14)
[2024-01-18] MEDS: DIGOXIN 0.125 MG TABLET 0.25 MG PO (08:14)
[2024-01-18] MEDS: METOPROLOL TARTRATE 25 MG TABLET 50 MG PO (08:14)
[2024-01-18] MEDS: BusPIRone HCL 5 MG TABLET PO (08:15)
[2024-01-18] MEDS: ASPIRIN EC 81 MG TABEC PO (08:15)
[2024-01-18] MEDS: SENNA TABLET 1 TAB PO (08:15)
[2024-01-18] MEDS: APIXABAN 2.5 MG TABLET PO (08:15)
[2024-01-18] MEDS: GABAPENTIN 100 MG CAPSULE PO (08:15)
[2024-01-18] MEDS: HYDROcodone/APAP 5/325 TABLET 1 TAB PO (09:04)
[2024-01-18] MEDS: INSULIN GLARGINE (Lantus) 5 UNIT/0.05 ML (PER 5 UNITS) 10 UNIT SC (09:41)
[2024-01-18] MEDS: Magnesium Sulfate 2 GM Ivpb 2 GM/50 ML BAG IV (09:42)
--- NOTE | 2024-01-18 10:16 | PC.NURSE ---
Pt. has discharge order. Per SS will lemon picker the pt.and will not be able to lemon picker the pt. until 3:00 pm.
--- NOTE | 2024-01-18 12:46 | PC.NURSE ---
Sbar report given to ORI ying at the [facility]
--- NOTE | 2024-01-18 13:52 | ESDS_ITS ---
<Statement entered by Armen Robbins MD - 01/18/24 16:06> Patient was seen and examined at the bedside. Patient was medically stable to be discharged today. She was passing bowel movements and had no active concerns. We are continuing her medications as prescribed and was advised to follow-up with PCP as outpatient. She is discharged to SNF. I saw and examined the patient, and I agree with current management stated by Dr Rd MD,PGY1. Plan of care was discussed with the attending physician and resident physician. Disclaimer: Despite multiple revisions, due to the dictation software being used, the document bellow may not be free of grammatical errors including phonetic/typographic errors. However, this does not deter from our commitment to providing health care in the patient's best interest in mind. Dr. Rosendo MD, PGY 2 Planned Discharge Date 01/18/24 DS: Providers Provider Date of admission: 01/14/24 18:00 Primary care physician: Physician No Primary/Family Admitting Provider: Vijay Scruggs MD Attending Provider on Admission: Oziel Reardon DO Consults: 01/14/24 21:52 Referral Physical Therapy Routine Comment: Physician Instructions: 01/14/24 23:25 Referral Wound Care Routine Comment: Attending Provider on DC: Madeline Sultana MD Discharging Provider: Madeline Sultana MD DS: Diagnosis Problem List Completed Was Problem List Reviewed/Reconciled?: Yes Hospital Course Hospital Course Hospital course: Overview: Patient is a 63 year old female with a past medical history of Hypertension, Hyperlipidemia, Diabetes Mellitus Type 2 [place] Dependent, COPD, CHF, atrial fibrillation, Diabetic Foot Ulcer w/ PAD s/p Debridement 12/09/2023, history of femoral endarterectomy by Dr. Marie. Patient was transfered from [facility] back to [place] on (01/14/2024) s/p peripheral revascularization and angiogram of right common femoral arter. Patient was initially transfered to [facility] on 01/01/2024 directly form ER. Pending SNF. Overnight transfer form [facility], no ER Course. 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 Pain management on board for patient on Tylenol 650 p.o. every 6 as needed, [place], and tramadol for breakthrough pain. Please follow-up with Dr. Lanza for wound care. Please change dressing daily please keep dressing clean and dry. Prevotella bacteremia resolved patient completed course of doxycycline on 01/17/2024. History of chronic CHF HFrEF per chart review on digoxin, metoprolol and atorvastatin. Atrial fibrillation, rate controlled patient on Eliquis 2.5 p.o. twice daily. Physical therapy recommendations: PT TD including therapy exercise, therapy activity, neuromuscular reeducation, gait training, patient and caregiver education as clinically appropriate. Care Plan Goals: -Please continue to take the rest of your medications as prescribed below. -Please continue to work with physical therapy while you are at the [facility] -Please follow-up with vascular surgery at [facility] within 1 week of discharge. -Please hold Aspirin and Eliquis if you notice any bleeding, and follow up with primary care provider -Please follow up w/ Dr. Lanza for wound care -Please change dressing daily, keep dressing clean and dry, and weight bearing in surgical shoe. -If you experience any new or worsening of symptoms please either call your primary care doctor, or dial 911 or present to the emergency room -if you do not have a Primary Care Provider, may follow up with [facility], [address], [place] [address]; Phone Right peripheral artery disease s/p femoropopliteal bypass Gangrene of right toe s/p amputation of r hallux Prevotella bacteremia, completed abx course History of chronic CHF, HFrEF Hyperlipidemia Atrial Fibrillation, rate controlled DVT on Eliquis Insulin dependent type 2 diabetes mellitus diabetic neuropathy hx of diabetic foot ulcer hypertension generalized anxiety blood loss anemia s/p transfusion - The patient's plan was discussed with attending Dr. Reardon and senior residents Rosendo Sultana MD PGY1 Internal Medicine Time Spent with Patient Time attestation: Total time spent providing and/or coordinating discharge services: greater than 35 minutes Exam Vital Signs Temp Pulse Resp BP Pulse Ox O2 Del Method 97.2 F 67 18 139/71 H 93 L Room Air 01/18/24 12:00 01/18/24 12:00 01/18/24 12:00 01/18/24 12:00 01/18/24 12:00 01/18/24 12:00 Narrative Exam General Appearance: Alert & Oriented X3, well-nourished female who is lying in bed in no acute distress HEENT: Skull symmetrical and atraumatic. Conjunctivae pin and moist. Pupils e qual, round, reactive to light and accommodation (PERRL). External ear without lesion or discharge. Straight, nares patient, mucosa pink, no discharge. No thyroid nodule appreciated. No cervical lymphadenopathy. Cardio: Normal Rate and Rhythm with S1 and S2 heart sounds. No murmurs or extra heart sounds auscultated. No bruits on carotid auscultation. No peripheral edema or cyanosis. Lungs: Symmetric with good expansion. Chest and back non-tender. Breath sounds vesicular without crackles, wheezing or rhonchi Abdomen: Non-tender, Non-distended, Normal Reactive Bowel Sounds Neuro: Alert, cooperative, oriented to person, place, and time. Speech clear. CN grossly intact. Upper motor strength 5/5 and Lower motor strength 5/5. Sensation intact. Discharge Plan Plan Patient Disposition: [facility] (SNF) Care Plan Goals: -Please continue to take the rest of your medications as prescribed below. -Please continue to work with physical therapy [facility] -Please follow-up with vascular surgery at [facility] within 1 week of discharge. -Please hold Aspirin and Eliquis if you notice any bleeding, and follow up with primary care provider -If you experience any new or worsening of symptoms please either call your primary care doctor, or dial 911 or present to the emergency room -if you do not have a Primary Care Provider, may follow up with [facility], [address], [place] [address]; Phone Prescriptions/Referrals Prescriptions/Med Rec: New Eliquis 2.5 mg Tablet 2.5 mg PO BID Qty: 60 0RF buspirone 5 mg Tablet 5 mg PO BID Qty: 30 0RF atorvastatin 20 mg Tablet 20 mg PO HS Qty: 30 0RF aspirin 81 mg Tablet,Delayed Release (Dr/Ec) 81 mg PO QDAY 30 Days Qty: 30 0RF famotidine 20 mg Tablet 40 mg PO HS 30 Days Qty: 60 0RF metoclopramide HCl 5 mg Tablet 10 mg PO Q6H PRN (Reason: Nausea Or Vomiting) 30 Days Qty: 30 0RF gabapentin 300 mg Capsule 300 mg PO HS Qty: 30 0RF digoxin 125 mcg (0.125 mg) Tablet 0.25 mg PO QDAY Qty: 30 0RF gabapentin 100 mg Capsule 100 mg PO QDAY Qty: 30 0RF metoprolol tartrate 50 mg tablet 50 mg PO BID Qty: 60 0RF valsartan 160 mg tablet 160 mg PO QDAY Qty: 30 0RF Referrals: No Primary/Family,Physician [Primary Care Provider] - Patient/Caregiver Discharge Instructions Other Discharge Activity Instructions:: Wound Care- Right groin and leg surgical site- Keep clean and dry Right foot, great toe amputation- Cleanse and irrigate wound with normal saline, pat dry. Apply no sting barrier film to saba-wound skin. Gently apply adaptic strip to wound, making sure entire wound deficit is filled. Cover with dry gauze and ABD Pad. Wrap lightly with kerlix and secure with tape. Change Q shift and PRN soiled/dislodgement. Print Language: Jordanian Stand Alone Forms: [employer] Award Info., Patient Portal Info Letter Discharge Order Discharge Orders: Discharge (Routine); Ordered 01/18/24 Ordered By: Nichelle Breaux Quality Discharge Quality Measures VTE prophylaxis Attestestation MD Attestation I have discussed and was present for the essential components of the discharge history, physical examination, diagnosis, and discharge treatment plan with the resident. I agree with the patient's discharge care as documented by the resident and amended herein by me. Elgin Reardon DO. The patient understood all discharge instructions, all questions were answered satisfactorily. The patient was instructed to return to the Emergency Department is symptoms worsened or persisted. Patient was stable, afebrile, tolerating p.o. intake at time of discharge Although this document has been carefully reviewed, there may still be some phonetic and other typographical errors. These errors are purely grammatical due to imperfections in the software program and should not be construed in any way to compromise the substance of the patient's medical care during this visit.
== END 2024-01-18 13:30 | disposition skilled nursing facility (03) | DRG 300 ==
PROVIDERS: Student in an Organized Health Care Education/Training Program; Admitting Provider Internal Medicine; Visit Provider Student in an Organized Health Care Education/Training Program
DX: E11.52 Type 2 diabetes mellitus with diabetic peripheral angiopathy with gangrene (principal); I50.22 Chronic systolic (congestive) heart failure; I70.261 Atherosclerosis of native arteries of extremities with gangrene, right leg; R78.81 Bacteremia; E11.40 Type 2 diabetes mellitus with diabetic neuropathy, unspecified; I48.0 Paroxysmal atrial fibrillation; Z86.718 Personal history of other venous thrombosis and embolism; F17.210 Nicotine dependence, cigarettes, uncomplicated; I11.0 Hypertensive heart disease with heart failure; E78.5 Hyperlipidemia, unspecified; F41.1 Generalized anxiety disorder; D50.0 Iron deficiency anemia secondary to blood loss (chronic); I08.1 Rheumatic disorders of both mitral and tricuspid valves; I27.20 Pulmonary hypertension, unspecified; J44.9 Chronic obstructive pulmonary disease, unspecified
CPT/HCPCS: 36415; 80053; 80162; 80307; 83036; 83735; 84100; 85025; 97162; J1815; J3475; A9270

== ENCOUNTER → 2024-02-03 | Outpatient (CLI) | payer MEDICARE, SELFPAY | END | disposition home or self-care (01) | LOC: SLDO 15:36 | PROVIDERS: Referring Provider Student in an Organized Health Care Education/Training Program; Visit Provider Student in an Organized Health Care Education/Training Program | DX: E11.621 Type 2 diabetes mellitus with foot ulcer (principal) | CPT/HCPCS: 87070; 87075; 87077; 87186; 87205 ==

== ENCOUNTER → 2024-02-03 | Outpatient (CLI) | payer MEDICARE, SELFPAY | END | disposition home or self-care (01) | PROVIDERS: PCP Family Medicine; Referring Provider Family Medicine; Visit Provider Student in an Organized Health Care Education/Training Program | DX: L97.512 Non-pressure chronic ulcer of other part of right foot with fat layer exposed (principal); L97.419 Non-pressure chronic ulcer of right heel and midfoot with unspecified severity; T81.89XA Other complications of procedures, not elsewhere classified, initial encounter; I10 Essential (primary) hypertension; E11.40 Type 2 diabetes mellitus with diabetic neuropathy, unspecified; Z79.4 Long term (current) use of insulin; Z79.84 Long term (current) use of oral hypoglycemic drugs; F17.200 Nicotine dependence, unspecified, uncomplicated | CPT/HCPCS: 11042; 11045; A9270 ==

== ENCOUNTER 2024-02-15 21:00 | Inpatient (IN) | payer MEDICARE, MEDICAID, SELFPAY ==
[2024-02-15] VITALS (35 sets, daily range): BP systolic 99–195; BP diastolic 64–147; PULSE 114–202; RESP 13–50; TEMP 38.9; O2SAT 86–100; BMI 22.8
--- NOTE | 2024-02-15 21:12 | EDNOTE_ITS ---
ED Arrhythmia Palp. RME/HPI General Chief Complaint: Shortness of Breath/Dyspnea Stated Complaint: SOB Time Seen by Provider: 02/15/24 21:05 Arrival date/time: 02/15/24 21:00 RME / HPI RME / HPI narrative: Dr. Martínez?s Main ED Evaluation: 63yo female with pmhx CHF, COPD, HTN, HLD, DM, diabetic foot ulcer with PAD BIBA from home presents to the ED for a chief complaint of shortness of breath. Per EMS, patient got into a verbal argument with her boyfriend and she started feeling short of breath. EMS notes the patient had a heart rate in the 120s and was dyspneic en route. Full ROS is unobtainable due to the patient's medical condition. Related Data Previous Rx's ?Medication ?Instructions ?Recorded apixaban 2.5 mg tablet (Eliquis) 2.5 mg PO BID #60 tabs 01/16/24 atorvastatin 20 mg tablet 20 mg PO HS #30 tabs 01/16/24 buspirone 5 mg tablet 5 mg PO BID #30 tabs 01/16/24 digoxin 125 mcg (0.125 mg) tablet 0.25 mg (2 x 125 mcg (0.125 mg)) 01/16/24 PO QDAY #30 tabs gabapentin 100 mg capsule 100 mg PO QDAY #30 caps 01/16/24 gabapentin 300 mg capsule 300 mg PO HS #30 caps 01/16/24 metoprolol tartrate 50 mg tablet 50 mg PO BID #60 tabs 01/18/24 valsartan 160 mg tablet 160 mg PO QDAY #30 tabs 01/18/24 Allergies Allergy/AdvReac Type Severity Reaction Status Date / Time No Known Allergies Allergy Verified 02/10/23 13:49 Review of Systems Review of Systems ROS Unobtainable: unobtainable due to medical condition Past Medical History Past Medical History CARDIAC: Positive Cardiac Disorders, Atrial Fibrillation, Peripheral Vascular Disease, Congestive Heart Failure and Hypertension RESPIRATORY: Positive Chronic Obstructive Pulmonary Disease (COPD) and Asthma GASTROINTESTINAL: Positive Gastrointestinal Disorders (HEPATITIS C) and Hepatitis GENITOURINARY: Negative Renal Disease ENDOCRINE: Positive Diabetes Mellitus Type 2; Negative Endocrine Disorders or Diabetes Mellitus Type 1 HEMATOLOGIC: Negative Sickle Cell Disease OTHER HISTORY: Positive Blood Transfusions, Chicken Pox, Measles and Mumps; Negative Cancer Family History FAMILY HISTORY: Positive Family Cardiac Disorders (FATHER HEART ATTACK) and Family Cancer (MOTHER BREAST CANCER, AND OVARY CANCER) Surgical History SURGICAL: Positive Carotid Endarterectomy and Tubal Ligation Social History SMOKING STATUS: Former smoker SECOND HAND EXPOSURE: Yes SUBSTANCE USE: methamphetamine ED Exam Narrative Physical exam: GENERAL APPEARANCE: awake and alert, but does not follow commands; has 2-3 word sentences, well-developed, well-nourished, in severe respiratory distress VITALS: All vitals were reviewed and the pulse ox is 89% on room air, which is hypoxic according to my interpretation. Patient is very hypertensive and febrile. HEENT: Normocephalic, atraumatic; pupils equal, round, reactive to light; EOMI; mucous membranes pink, moist; oropharynx clear NECK: Supple LUNGS: severely tachypneic; no wheezes, no rales, no rhonchi HEART: Tachycardic, regular rhythm; normal S1, S2; no murmurs ABDOMEN: non distended; normal BS; soft, no tenderness, no guarding, no rebound; no masses, no organomegaly, no hernia BACK: no CVA tenderness EXTREMITIES: atraumatic; no edema; has constant random purposeless movements; soiled surgical bandage at the right foot that appeared to not have been changed since she was discharged from this facility, when removed - it showed the distal portion of the 1st metatarsal with an open wound that is granulating well, but no swelling, surrounding erythema, or discharge NEUROLOGIC: abjectly panic stricken, awake and alert, but does not follow commands; cranial nerves II-XII grossly intact; no focal sensory or motor deficits PSYCHIATRIC: anxious mood and affect SKIN: warm, diaphoretic, normal color; no rashes Course Course Course Narrative: Patient presented to the ED with palpitations and dyspnea. Patient went into aFib with a ventricular rate in the 150-160s. Patient went into severe respirat ory distress and is severely tachypneic. She had constant random purposeless movements. Multiple attempts were made by multiple nurses to gain peripheral access without any success. Attempted to place an I/O on the CHIQUIS without any success. IV access was questionably gained with the placement of an I/O at the RLE. I attempted to place a right subclavian central line, but the patient had significant random purposeless movements, and ultimately caused a pneumothorax. A 22G IV was placed in the right shoulder and etomidate was given. Patient was then given succinylcholine and was intubated at 2154. After the patient was intubated, a chest tube was placed at the right and a right subclavian was placed. CXR is ordered for post procedure confirmation. 2317: Sepsis alert initiated. Orders made at this time are congruent with ED Adult Sepsis Order List. Re-evaluation is to be completed. NS IVF was started at 2252. 0027: Sepsis reassessment performed consisting of lab review, vitals, physical exam including auscultation of heart, lungs, and visual evaluation of capillary refills, mucosal membranes and extremities. 0047: Patient's repeat ABG shows slight improvement. Will keep current ventilation settings. Quality Measures Possible source: genitourinary and other Blood cultures ordered: yes Antibiotic ordered: Yes Pertinent labs: 02/15/24 23:02 Lactic Acid Pending sepsis Procedures -ED Procedure Comment The second attempt at the right subclavian central line is as follows: Time Out Performed: No Patient Placed on Monitor/Pulse Ox: Yes Hand Hygiene: scrub and soap & water Max Sterile Barrier Techniques used: cap, mask, sterile gown, sterile gloves and sterile full body drape Central Line Prep: Chlorhexidine scrub Local Anesthetic: lidocaine 2% Amount of anesthesia used (mL): 5 Ultrasound Used for Placement: No Central Line Lumen Inserted: triple Post Procedure: sutured in place, good blood return, all ports aspirated, flushed, capped, sterile dressing applied Post Procedure X-ray: tip of catheter in good place Central Line Placement Right SC: Time Out Performed: No Patient Placed on Monitor/Pulse Ox: Yes Hand Hygiene: scrub and soap & water Max Sterile Barrier Techniques used: cap, mask, sterile gown, sterile gloves and sterile full body drape Central Line Prep: Chlorhexidine scrub Local Anesthetic: lidocaine 2% Amount of anesthesia used (mL): 5 Ultrasound Used for Placement: No Central Line Lumen Inserted: triple Additional Comments: During the first attempt, patient moved and caused a pneumothorax, therefore, the needle was withdrawn. Chest Tube Chest Tube 1: Chest Tube Location: right Size of Tube (cm): 32 Chest Tube Prep: Yes betadine prep (and chloroprep) Incision Made With: #10 blade Post Procedure: sutured to skin and sterile dressing applied Tube Drainage: other (minimal bloody drainage and good bubbling in the pleura-vac) Post Procedure CXR?: Yes Patient Tolerated Procedure: Yes Intubation Time out performed: No sedative: Etomidate Mg Given: 20 paralytic: Succinylcholine Mg Given: 125 Laryngoscope: fiber optic video scope Assist Device Used: fiber optic device ET Tube Size: 7.5 ET Tube Uncuffed: No Tube Secured Depth (cm): 24 Tube Secured Location: other (gum) Tube Placement Confirmation: visualized tube passing through cords, equal breath sounds bilaterally, no breath sounds over epigastrium and confirmation by capnometry Patient Tolerated Procedure: well and no complications Arrhythmia/Palpitations MDM Narrative MDM Narrative:: Scribe Attestation: 02/15/24 Ava Snow am scribing for and in the presence of Dr. Martínez. Patient data External records reviewed:: [facility] previous records (Per chart review, patient was discharged on 01/18/24 to SNF s/p femoral-popliteal bypass and gangrene of right toe status post amputation of the right helix) Clinical information provided by:: EMS Social determinants that could affect healthcare access:: substance use (history of amphetamine and marijuana use) Patient has the following chronic illnesses:: CHF, COPD, HTN, HLD, DM, diabetic foot ulcer with PAD, s/p femoral-popliteal bypass and gangrene of right toe status post amputation of the right helix How is presenting disease/condition affected by chronic disease/condition?: exacerbated by Evaluation data The following diagnostics were reviewed and interpreted by me:: lab results, radiology exam(s) and EKG tracing(s) Lab and/or radiology exams considered but not ordered:: none Interpretation Summary: WBC count is elevated at 13.4, Lactate is elevated at 4.2, ABG shows a low pH of 7.20, low CO2 of 51, and normal bicarb; UDS is positive for methamphetamines, opiates, and marijuana; troponin is elevated at 0.122, BNP is elevated at 539, Procalcitonin is normal, TSH is elevated at 11.22, Free T4 is low at 0.77, Magnesium is normal, UA is positive for a UTI, according to my interpretation. Initial chest x-ray showed good position of the right subclavian central line, ET tube at the anne, and suboptimal placement of the chest tube but acceptable. CXR was re-shot after pulling back the ET tube and showed the ET tube 4cm above the anne. ET tube was pushed back in slightly, CXR was re-shot, and showed the ET tube in good placement and suboptimal, but acceptable, placement of the chest tube. EKG done at 2115, aFib, rate of 156, left axis deviation, occasional PVCs, Q waves in V1 and V2, left anterior fascicular block, generalized ST abnormalities, no STEMI, according to my interpretation. Medications / Prescriptions Medications or Prescriptions considered but not ordered:: none Medication administrations:: see above Consultations Consultation(s) initiated? (list below): Yes Consultation #1 (Physician, Specialty, Details): Discussed case with [Dr. Copeland, attending Dr. Hall] from Hospitalist service regarding admission. Discussed patients ED course, exam findings, labs, and radiology results. The Hospitalist [agrees] to accept the patient for admission. Time: 00:21 Diagnosis Differential diagnosis arrhythmia/palpitations: other (neuroleptic malignant syndrome, serotonin syndrome, thyroid storm, methamphetamine overdose, cocaine overdose, alcohol withdrawals, benzodiazepine withdrawals) Most likely diagnosis given after review of the tests above:: see below Admission Indicated Admission indicated?: indicated Admission Request Was there a request for admission?: Yes Admission Attestation Admission request attestation: Discussed case with [] from Hospitalist service regarding admission. Discussed patients ED course, exam findings, labs, and radiology results. The Hospitalist [agrees,declines] to accept the patient for admission. Disposition Plan Disposition Plan: Admit Critical Care Time Critical Care Time Critical Care Time: Yes Total Critical Care Time (min.): 90 Attestation: The high probability of sudden, clinically significant deterioration in the patient?s condition required the highest level of my preparedness to intervene urgently. The services I provided to this patient were to treat and/or prevent clinically significant deterioration. Services included the following: chart data review, reviewing nursing notes and/or old charts, documentation time, advisor consultant collaboration regarding findings and treatment options, medication orders and management, direct patient care, vital sign assessments and ordering, interpreting and reviewing diagnostic studies and lab tests. Aggregate critical care time includes only time during which I was engaged in work directly related to the patient?s care, as described above, whether at bedside or elsewhere in the Emergency Department. It did not include time spent performing other reported procedures or the services of residents, students, nurses or physician assistants. Discharge Plan Plan Patient Disposition: Admit Acute Care w/in Hospital Prescriptions/Referrals Prescriptions/Med Rec: No Action Eliquis 2.5 mg Tablet 2.5 mg PO BID Qty: 60 0RF buspirone 5 mg Tablet 5 mg PO BID Qty: 30 0RF atorvastatin 20 mg Tablet 20 mg PO HS Qty: 30 0RF gabapentin 300 mg Capsule 300 mg PO HS Qty: 30 0RF digoxin 125 mcg (0.125 mg) Tablet 0.25 mg PO QDAY Qty: 30 0RF gabapentin 100 mg Capsule 100 mg PO QDAY Qty: 30 0RF metoprolol tartrate 50 mg tablet 50 mg PO BID Qty: 60 0RF valsartan 160 mg tablet 160 mg PO QDAY Qty: 30 0RF Referrals: No Primary/Family,Physician [Primary Care Provider] - In 1 week Problem List Clinical Impression: Overdose of methamphetamine, Cannabis abuse, Opioid abuse, Hypertensive crisis, UTI (urinary tract infection), Non-ST elevation IL (NSTEMI), Hypothyroidism, Septic shock, Respiratory failure, Anemia, Atrial fibrillation, rapid, Pseudohyponatremia, Hyperglycemia Patient/Caregiver Discharge Instructions Print Language: Malagasy Stand Alone Forms: [employer] Award Info., Patient Portal Info Letter
--- NOTE | 2024-02-15 21:49 | PC.NURSE ---
Multiple IVs attempted and central line and IO attempted unsuccessfully
[2024-02-15] MEDS: ETOMIDATE INJ 2 MG/ML VIAL 10 ML 20 MG IVP ×2 (21:50→21:53)
[2024-02-15] MEDS: SUCCINYLCHOLINE INJ 20 MG/ML VIAL 10 ML 125 MG IV (21:56)
[2024-02-15] MEDS: ROCURONIUM INJ 10 MG/ML VIAL 10 ML 50 MG IVP (22:05)
[2024-02-15] MEDS: PROPOFOL 1,000 MG IVPB 1,000 MG/100 ML VIAL 1.932 MG IV (22:06)
[2024-02-15] MEDS: DILTIAZEM INJ 5 MG/ML VIAL 5 ML 25 MG IV (22:10)
[2024-02-15] MEDS: DILTIAZEM INJ 125 MG in DEXTROSE 5%-WATER 100 ML IV ×2 (22:20→22:48)
--- NOTE | 2024-02-15 22:33 | PC.NURSE ---
All pt is willing to say is that I cant breathe
--- NOTE | 2024-02-15 22:44 | XR_ITS ---
Examination: AP chest single view Technique one AP portable supine chest single view Exam date and time: February 15, 2024 10:46 PM Comparison January 01, 2024 Indications: Hypoxic respiratory failure, postintubation Comparison: January 01, 2024 Indications: Hypoxic respiratory failure postintubation Findings: Mild enlargement cardiac contour Prominent vascular congestion Interstitial disease throughout the lungs Right chest tube satisfactory position Right apical pneumothorax less than 5% Tracheal tube tip 7 cm above anne Moderate osteopenia Impression: Mild heart failure Consider superimposed interstitial pneumonia throughout the lungs Endotracheal tube 7 cm above anne Minimal right apical pneumothorax
--- NOTE | 2024-02-15 22:50 | XR_ITS ---
Examination: CTA chest with intravenous contrast 2-D reconstructions 3-D reconstructions, vascular Date and time of exam: February 16, 2024 0102 hours INDICATIONS: Respiratory distress, chest pain SOB today, diagnosis rapid atrial fibrillation CTDI: vol (mGy) 21.87 DLP: (mGycm) 577 Technique: Multiple axial sections of the thorax have been obtained. 3 mm slice thickness, from below the hemidiaphragms to above the apices of the lungs. Mediastinal and lung density settings have been obtained. 2-D sagittal and coronal reconstructions. 3-D angiographic renderings, 3-D volume renderings, 3D post processing, vascular maximum intensity projections obtained. Contrast administered is 100 cc Isovue-370 intravenous. Low dose protocols were performed. One or more of the following dose reduction techniques were used; automated exposure control, adjustment of the mA and/or KV according to patient size, use of iterative reconstruction technique. Findings: Tracheal tube tip satisfactory position Thoracic aortic calcification no aneurysmal dilatation No pulmonary artery emboli Bilateral areas of parenchymal disease consistent with pneumonia Right pneumothorax estimated 20% Recommend advancing the patient's chest tube 4 cm Enlarged cardiac contour with mild septal pulmonary edema IMPRESSION: Negative for pulmonary artery emboli Right pneumothorax 20% Advance the patient's chest tube 4 cm Patchy areas of bilateral pneumonia Mild CHF with pulmonary edema
[2024-02-15 22:52] LABS: Base Excess -8 (-3-3); HCO3 20 mEq/L (20-26); O2 Saturation 101 % (91-98); PCO2 51 mmHg (32.0-48.0); PO2 248 mmHg (83-108)
[2024-02-15] MEDS: SODIUM CHLORIDE 0.9% 1000 ML 1,779 ML 1779 ML IV (22:52)
[2024-02-15 22:53] LABS: Allen Test Performed/OK; Inspired Oxygen, FIO2 100 %; Puncture Site Left Radial
[2024-02-15 23:22] LABS: Lactate (Lactic Acid) 4.2 mMol/L (0.4-2.0)
[2024-02-15 23:26] LABS: Basophils % (Auto) 0 % (0-2.5); Eosinophils % (Auto) 0 % (0-10); Immature Granulocytes % (Auto) 1 % (0-0); Lymphocytes # (Auto) 0.9 Thou/mm3 (1.0-4.8); Lymphocytes % (Auto) 7 % (10-50); Mean Corpuscular HGB Conc 31.3 g/dl (31.0-37.0); Mean Corpuscular Hemoglobin 26.5 pg (25.0-35.0); Mean Corpuscular Volume 85 fL (80-100); Monocytes # (Auto) 0.8 Thou/mm3 (0.0-0.8); Monocytes % (Auto) 6 % (0-12); Neutrophils # (Auto) 11.6 Thou/mm3 (1.8-7.7); Neutrophils % (Auto) 87 % (37-80); Nucleated Red Blood Cell % 0 /100 WBC (0); Platelet Count 281 Thou/mm3 (140-440); RDW Standard Deviation 56.7 fL (36.4-46.3); Red Blood Count 3.77 Miln/mm3 (4.00-5.20); White Blood Count 13.4 Thou/mm3 (3.6-11.0)
[2024-02-15 23:30] LABS: Collection Type, Urine Clean Catch
[2024-02-15] MEDS: PIPER/TAZO INJ 4.5 GM in SODIUM CHLORIDE 0.9% (P) 100 ML IV (23:36)
[2024-02-15] MEDS: MIDAZOLAM/NS 100 MG IVPB 100 MG/100 ML BAG IV (23:36)
[2024-02-15] MEDS: ACETAMINOPHEN IVPB 1,000 MG/100 ML VIAL 250 MG IV (23:46)
[2024-02-15 23:55] LABS: Amphetamine/Methamp Scrn,U Positive (Negative); Barbiturate Screen,Urine Negative (Negative); Benzodiazepines Screen,Urine Negative (Negative); Benzoylecgonine Screen, Ur Negative (Negative); Fentanyl Screen,Urine Negative (Negative); Opiate Screen,Urine Positive (Negative); THC Screen,Urine Positive (Negative)
[2024-02-15 23:55] LABS: Alanine Aminotransferase 31 U/L (10-49); Albumin/Globulin Ratio 1.2 (1.2-2.2); Alkaline Phosphatase 109 U/L (46-116); Anion Gap 9 (7-16); Aspartate Amino Transferase 77 U/L (0-34); B-Type Natriuretic Peptide 539 pg/mL (0-100); BUN/Creatinine Ratio 19 Ratio (12-20); Bilirubin,Total 0.5 mg/dL (0.3-1.2); Blood Urea Nitrogen 23 mg/dL (9-23); Calcium 8.2 mg/dL (8.3-10.6); Calcium (Corrected) 8.2 mg/dL (8.5-10.1); Carbon Dioxide 21.5 mMol/L (20.0-31.0); Chloride 100 mMol/L (98-107); Creatinine (Component) 1.2 mg/dL (0.6-1.3); Estimated Creatinine Clearance 43.8 mL/min (>60); Free T4 (Free Thyroxine) 0.77 ng/dL (0.89-1.76); Globulin 3.3 gm/dL (2.3-3.5); Glucose 295 mg/dL (74-106); Lipase 39 U/L (12-53); Magnesium 1.8 mg/dL (1.6-2.6); Osmolality,Calculated 275 (275-295); Phosphorous 5.7 mg/dL (2.4-5.1); Potassium 5.4 mMol/L (3.4-5.1); Procalcitonin 0.09 ng/ml (0.0-0.49); Sodium 130 mMol/L (136-145); Thyroid Stimulating Hormone 11.12 uIU/mL (0.55-4.78); Total Protein 7.3 gm/dL (5.7-8.2); eGFR 50 See Note
[2024-02-15 23:57] LABS: Troponin I 0.122 ng/mL (0.0-0.045)
[2024-02-16] VITALS (129 sets, daily range): BP systolic 99–152; BP diastolic 57–102; PULSE 84–146; RESP 0–45; TEMP 35.8–37.2; O2SAT 93–100; BMI 24.5
[2024-02-16] LABS: Bacteria,Urine Rare; Bilirubin,Urine Negative (Negative); Blood,Urine 3+ (Negative); Budding Yeast,Urine Present; Color,Urine Yellow (Lt Yel-Yel); Glucose, Urine 2+ (Negative); Hyaline Casts,Urine < 1 /hpf (0-1); Ketones,Urine Negative (Negative); Leukocyte Esterase,Urine Negative (Negative); Nitrite,Urine Negative (Negative); Protein,Urine 3+ (Neg - Trace); RBC,Urine 14 /hpf (0-3); Specific Gravity,Urine 1.024 (1.001-1.035); Squamous Epithelial Cell,Urine 11 /hpf (0-5); Urobilinogen,Urine Negative mg/dL (0.0-1.0); WBC,Urine 22 /hpf (0-5)
[2024-02-16] MEDS: DOXYCYCLINE INJ 200 MG in SODIUM CHLORIDE 0.9% 250 ML 250 ML 125 MG IV (00:04)
[2024-02-16 00:10] LABS: LDH (Lactate Dehydrogenase) 453 U/L (120-246)
[2024-02-16 00:11] LABS: Clarity,Urine Hazy (Clear/Hazy)
[2024-02-16 00:12] LABS: Sperm,Urine Absent
[2024-02-16 00:18] LABS: Respiratory Syncytial Virus Ag Negative (Negative)
[2024-02-16 00:36] LABS: Base Excess -6 (-3-3); HCO3 22 mEq/L (20-26); Inspired Oxygen, FIO2 65 %; O2 Saturation 96 % (91-98); PCO2 52 mmHg (32.0-48.0); PO2 90 mmHg (83-108); pH, Arterial 7.23 (7.35-7.45)
[2024-02-16 00:39] LABS: Allen Test Performed/OK; Puncture Site Left Radial
--- NOTE | 2024-02-16 01:30 | XR_ITS ---
Examination: AP chest single view TECHNIQUE: AP portable semiupright chest single view Exam date and time: February 16, 2024 0241 hours Comparison January 01, 2024 INDICATIONS: Reposition endotracheal tube FINDINGS: Endotracheal tube tip 5.6 cm above anne Right subclavian central line tip SVC Mild to moderate CHF Recommend advancing the right chest tube 4 cm Orogastric tube is not visualized as the film only includes the GE junction IMPRESSION: Recommend advancing the right chest tube 4 cm
--- NOTE | 2024-02-16 01:35 | ECHO_ITS ---
Transthoracic Echo Report Ht (in): 66 Wt (lb): 142 Exam Location: Portable Status: Emergency Public Information Officer: Suzie Bach Indications: Procedure Performed: BP: 119 / 90 HR: 97 Rhythm: Atrial fibrillation Technical Quality: Fair MEASUREMENTS (Male / Female) Normal Values 2D ECHO LV Diastolic Diameter PLAX 5.0 cm 4.2 - 5.9 / 3.9 - 5.3 cm LV Systolic Diameter PLAX 3.9 cm IVS Diastolic Thickness 1.0 cm 0.6 - 1.0 / 0.6 - 0.9 cm LVPW Diastolic Thickness 0.9 cm 0.6 - 1.0 / 0.6 - 0.9 cm LV Relative Wall Thickness 0.4 LVOT Diameter 1.8 cm LA Volume Index 43.3 cm?/m? 16 - 28 cm?/m? Ascending Aorta Diameter 2.3 cm DOPPLER AV Peak Velocity 106.0 cm/s AV Peak Gradient 4.5 mmHg AV Mean Gradient 2.0 mmHg AV Velocity Time Integral 16.3 cm LVOT Peak Velocity 85.0 cm/s LVOT Peak Gradient 2.9 mmHg LVOT Velocity Time Integral 12.8 cm LVOT Cardiac Index 1819.9 cm?/min?m? AV Area Cont Eq vti 2.0 cm? AV Area Cont Eq pk 2.0 cm? MV Peak Velocity 112.0 cm/s MV Peak Gradient 5.0 mmHg MV Mean Velocity 59.2 cm/s MV Mean Gradient 2.0 mmHg MV Area PHT 4.7 cm? MR Peak Velocity 410.0 cm/s MR Peak Gradient 67.2 mmHg Mitral E Point Velocity 82.0 cm/s Mitral A Point Velocity 1.9 cm/s Mitral E to A Ratio 42.3 LV E' Lateral Velocity 7.2 cm/s Mitral E to LV E' Lateral Ratio 11.4 LV E' Septal Velocity 5.8 cm/s Mitral E to LV E' Septal Ratio 14.2 TR Peak Velocity 251.0 cm/s TR Peak Gradient 25.2 mmHg FINDINGS Left Ventricle Normal left ventricular size, wall thickness. Mild systolic dysfunction. Mild global hypokinesis. T he ejection fraction is visually estimated at 40-45%. Right Ventricle The right ventricle is normal in size and systolic function. The estimated right ventricular systoli c pressure, 40mmHg. RAP 5. Left Atrium The left atrium is mildly dilated. Right Atrium The right atrium is normal by two-dimensional imaging, color flow and Doppler imaging with no struct ural abnormalities, no thrombus formation present. Atrial Septum The interatrial septum appears normal with no evidence of a shunt. Aorta The aorta is normal by two-dimensional, color flow and Doppler interrogation. Mitral Valve The mitral valve is normal by two-dimensional, color flow and Doppler interrogation. There is mild m itral valve regurgitation. Aortic Valve The aortic valve is trileaflet and normal by two-dimensional, color flow and Doppler interrogation. There is no significant aortic valve regurgitation. Tricuspid Valve The tricuspid valve is normal by two-dimensional, color flow and Doppler interrogation. There is mod erate tricuspid valve regurgitation. Pulmonic Valve There is no significant pulmonic valve regurgitation. Vessels The pulmonary artery appears normal. The inferior vena cava pulmonary and hepatic veins appear bradly l. Pericardium The pericardium is normal by two-dimensional imaging. There is no significant pericardial effusion. CONCLUSIONS Normal LV size. Mild systolic dysfunction. Mild global hypokinesis. Estimated EF 40-45% Normal RV size and function. Estimated RVSP 40mmHg. Mild MR. Moderate TR. Won Prabhakar (Electronically Signed) Final Date: 17 February 2024 10:15
--- NOTE | 2024-02-16 02:09 | PRELIM_ITS ---
CT angiogram of the chest with intravenous contrast (axial sections with sagittal and coronal reforma ts): February 16, 2024 at 0101 hours Clinical History: Rapid afib, resp distress. Technique:Helical ax ial sections with sagittal and coronal reformats of the chest were obtained with intravenous contrast . Iterative reconstruction technique was employed to reduce patient radiation exposure. 3D/MIP recons tructed images were also provided. Comparison: None available at the time of this report.Findings:The re is no filling defect within the pulmonary artery divisions to suggest pulmonary thromboembolism. T he mediastinum demonstrates no evidence of mass or lymphadenopathy. The thoracic aorta is unremarkabl e. There is no pericardial effusion. Thorax involving about 20% of the lung parenchyma with chest tub e in place.Consolidations are seen in the right middle, upper and lower lobes. Degenerative changes o f the imaged portions of the spine. No acute fractures are seen. The visualized upper abdominal visc era are unremarkable.Endotracheal tube is in place. Esophogastric tube is in place. Dilated left and right atria.Right central line with a distal tip at the superior cavoatrial junction.No pleural effus ions are seen.Impression:1. No CT evidence of pulmonary thromboembolism. 2. Right pneumothorax with c hest tube in place. 3. Right lung consolidations, atelectasis versus contusions versus pneumonia.4. D ilated atria. Report Electronically Signed By: Emiliano Saba 02/16/2024 2:08:47 AM [EST]
[2024-02-16] MEDS: VANCOMYCIN/NS 1 GM IVPB 200 ML IV (02:10)
[2024-02-16 02:16] LABS: Reflex Lactate? Y
--- NOTE | 2024-02-16 02:22 | PD.RESHP ---
Documentation for date of: 02/16/24 [facility] History of Present Illness History of present illness: Ms. Edwina Michel is a 63-year-old lady with a past medical history significant for Hypertension, hyperlipidemia, IDDM, COPD, CHF, atrial fibrillation, DFU secondary to peripheral arterial disease status post debridement, history of femoral endarterectomy who present from SNF due to acute onset SOB. Upon initial evaluation, the patient was intubated therefore collateral information was obtained through chart review. Per chart review, the patient had been in her usual state of health when she had reportedly gotten to a verbal argument with her boyfriend and became acutely short of breath. At which time emergency services were activated. Per EMS report, the patient had a heart rate in the 120s. ED course: In the ED the patient went into A-fib RVR with a rate reported as 202. Patient went into severe respiratory distress and was tachypneic in the 50s. Attempts were made to place peripheral IVs however were unsuccessful. An IO was placed in the left lower extremity however was nonfunctional at which point a subclavian central line was attempted. Due to the patient experiencing purposeless movements during the procedure, the patient sustained a right apical pneumothorax and the patient was intubated and a chest tube was placed. Patient was started on a Cardizem drip for Afib RVR. Patient was subesquently admitted to the ICU. Review of Systems Review of Systems ROS Unobtainable: due to endotracheal tube Past Medical History Past Medical History CARDIAC: Positive Cardiac Disorders, Atrial Fibrillation, Peripheral Vascular Disease, Congestive Heart Failure and Hypertension RESPIRATORY: Positive Chronic Obstructive Pulmonary Disease (COPD) and Asthma GASTROINTESTINAL: Positive Gastrointestinal Disorders (HEPATITIS C) and Hepatitis GENITOURINARY: Negative Renal Disease ENDOCRINE: Positive Diabetes Mellitus Type 2; Negative Endocrine Disorders or Diabetes Mellitus Type 1 HEMATOLOGIC: Negative Sickle Cell Disease OTHER HISTORY: Positive Blood Transfusions, Chicken Pox, Measles and Mumps; Negative Cancer Family History FAMILY HISTORY: Positive Family Cardiac Disorders (FATHER HEART ATTACK) and Family Cancer (MOTHER BREAST CANCER, AND OVARY CANCER) Surgical History SURGICAL: Positive Carotid Endarterectomy and Tubal Ligation Social History SMOKING STATUS: Former smoker SECOND HAND EXPOSURE: Yes SUBSTANCE USE: methamphetamine Exam Vital Signs Temp Pulse Resp BP Pulse Ox O2 Del Method O2 Flow Rate 98.1 F 124 H 36 H 117/68 100 Mechanical Ventilation 15 02/16/24 00:40 02/16/24 01:25 02/16/24 01:25 02/16/24 01:25 02/16/24 01:25 02/16/24 01:25 02/15/24 21:00 FiO2 50 02/16/24 01:25 Narrative Exam General: GCS 3T HEENT: NC/AT, moist mucous membranes, ETT in place Lungs: mechanical breath sounds B/L CVS: Tachycardic at bedside ~115, S1/S2 nl, No MRG appreciated ABD: soft, nondistended : Zhou in place with clear colored urine EXT: No LE edema noted, 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, open wound with granulation tissue noted Neuro: Unable to assess Lines: right subclavian central line (02/16/2024) PIV: 20 guage right AC fossa, 20 guaage Left forearm (02/16/2024) Zhou (02/16/2024) Drips: Diltiazem GTT Results: Labs 02/20/24 04:42 02/20/24 04:42 Labs: Short CBC 02/15/24 Range/Units 23:02 WBC 13.4 H (3.6-11.0) Thou/mm3 Hgb 10.0 L (12.0-16.0) g/dL Hct 32.0 L (36.0-46.0) % Plt Count 281 D (140-440) Thou/mm3 BMP 02/15/24 23:02 Sodium 130 L Potassium 5.4 H Chloride 100 Carbon Dioxide 21.5 BUN 23 Creatinine 1.2 Glucose 295 H Calcium 8.2 L Cardiac Enzymes 02/15/24 Range/Units 23:02 Troponin I 0.122 H* (0.0-0.045) ng/mL Liver Function 02/15/24 Range/Units 23:02 Total Bilirubin 0.5 (0.3-1.2) mg/dL AST 77 H (0-34) U/L ALT 31 (10-49) U/L Alkaline Phosphatase 109 (46-116) U/L Albumin 4.0 (3.4-4.8) gm/dL Urine 02/15/24 Range/Units 23:23 Urine Color Yellow (Lt Yel-Yel) Urine Clarity Hazy (Clear/Hazy) Urine pH 6.0 (5.0-7.0) Ur Specific Ubly 1.024 (1.001-1.035) Urine Protein 3+ A (Neg - Trace) Urine Glucose (UA) 2+ A (Negative) ABG Interpretation ABG results: 02/15/24 02/16/24 22:46 00:31 ABG pH 7.20 L 7.23 L ABG pCO2 51 H 52 H ABG pO2 248 H 90 D ABG HCO3 20 22 ABG O2 Saturation 101 H 96 ABG Base Excess -8 L -6 L Quality Measures Quality Measures sepsis Current suspected stage: severe sepsis Possible source: genitourinary and other Blood cultures ordered: yes Antibiotic ordered: Yes Advance care planning discussed with:: other Medications Home Medications and Allergies Allergies Allergy/AdvReac Type Severity Reaction Status Date / Time No Known Allergies Allergy Verified 02/10/23 13:49 Visit Medications Acetaminophen (Acetaminophen 325 Mg Tablet) 650 mg PO Q4HR PRN PRN Reason: PAIN SCALE 1-3 (mild Stop: 03/17/24 01:27 Acetaminophen (Acetaminophen Supp 650 Mg Supp) 650 mg ME Q4HR PRN PRN Reason: PAIN SCALE 1-3 (mild Stop: 03/17/24 01:27 Albuterol (Albuterol Rt 2.5 Mg/0.5 Ml Nebu) 2.5 mg INH Q2H PRN PRN Reason: WHEEZING Stop: 03/17/24 01:43 Albuterol/Ipratropium (Albuterol/Ipratropium (Duoneb) Rt Zahida 3 Ml Nebu) 3 ml INH Q4HRRT BHANU Stop: 03/17/24 02:59 Dextrose (Dextrose 50%-Water Inj 50 Ml Syringe) 50 ml IV Q15MIN PRN PRN Reason: BG <50 OR BG <70 & pt unresponsive Stop: 03/17/24 01:53 Dextrose (Dextrose 50%-Water Inj 50 Ml Syringe) 25 ml IV Q15MIN PRN PRN Reason: BG 50-70 responsive npo pt Stop: 03/17/24 01:53 Glucagon (Glucagon Inj 1 Mg Vial) 1 mg IM Q15MIN PRN PRN Reason: BG <70, and no IV access Diltiazem HCl 125 mg/ Dextrose 125 mls @ 5 mls/hr IV .Q24H BHANU; Protocol Stop: 03/16/24 21:11 Last Titration: 02/15/24 22:53 Dose: 0 mg/hr, 0 mls/hr Propofol (Diprivan Ivpb) 1,000 mg in 100 mls @ 1.932 mls/hr IV .Q24H PRN; Protocol PRN Reason: PER PROTOCOL Stop: 03/16/24 21:56 Last Titration: 02/16/24 01:14 Dose: 20 mcg/kg/min, 7.729 mls/hr Midazolam HCl (Versed Pf Inj In Ns Premix) 100 mg in 100 mls @ 1 mls/hr IV .Q24H PRN; Protocol PRN Reason: PER PROTOCOL Stop: 02/20/24 23:21 Last Titration: 02/15/24 23:49 Dose: 10 mg/hr, 10 mls/hr Vancomycin/Sodium Chloride (Vancomycin/Ns 1 Gm Ivpb) 200 mls @ 100 mls/hr IV X1 ONE Stop: 02/16/24 04:29 Last Admin: 02/16/24 02:10 Dose: 100 mls/hr Piperacillin/Tazobactam/Dextrose (Zosyn) 3.375 gm in 50 mls @ 12.5 mls/hr IV Q8HR [facility] Stop: 02/23/24 01:50 Insulin Human Lispro (Insulin Lispro (Admelog) 1 Unit/0.01 Ml Unit) 0 unit SC AC [facility]; Protocol Stop: 03/17/24 07:29 Pantoprazole Sodium (Pantoprazole 40 Mg Tablet) 40 mg PO QDAY [facility] Stop: 03/17/24 08:59 Pharmacy Consult (Pharmacy Renal Dose Adjustment 1 Ea) 1 each XX QDAY [facility] Stop: 03/17/24 08:59 Pharmacy Consult (Vancomycin Pharmacy To Dose 1 Each Each) 1 each IV QDAY [facility] Stop: 03/17/24 01:49 Sodium Chloride (Sodium Chloride Rt Zahida 0.9% 3 Ml Nebu) 3 ml INH PRN PRN PRN Reason: SOLN Stop: 03/17/24 01:43 Discontinued Medications Diltiazem HCl (Diltiazem Inj 5 Mg/Ml Vial 5 Ml) 25 mg IV X1 ONE Stop: 02/15/24 21:13 Last Admin: 02/15/24 22:10 Dose: 25 mg Etomidate (Etomidate Inj 2 Mg/Ml Vial 10 Ml) 20 mg IVP X1 ONE Stop: 02/15/24 21:43 Last Admin: 02/15/24 21:53 Dose: 20 mg Sodium Chloride (Ns) 1,779 mls @ 1,779 mls/hr 30 ml/kg infuse over 60 min (1779 ml) IV .Q1H ONE Stop: 02/15/24 23:41 Last Infusion: 02/15/24 23:57 Dose: Infused Piperacillin Sod/Tazobactam (Sod 4.5 gm/ Sodium Chloride) 100 mls @ 200 mls/hr IV NOW ONE Stop: 02/15/24 23:50 Last Infusion: 02/16/24 00:12 Dose: Infused Doxycycline Hyclate 200 mg/ (Sodium Chloride) 250 mls @ 125 mls/hr IV X1 ONE Stop: 02/16/24 01:20 Last Infusion: 02/16/24 02:11 Dose: Infused Acetaminophen (Ofirmev Inj) 1,000 mg in 100 mls @ 250 mls/hr IV NOW ONE Stop: 02/15/24 23:58 Last Infusion: 02/16/24 00:11 Dose: Infused Doxycycline Hyclate 200 mg/ (Sodium Chloride) 250 mls @ 125 mls/hr IV X1 ONE Stop: 02/16/24 02:09 Last Admin: 02/16/24 00:41 Dose: Not Given Piperacillin/Tazobactam/Dextrose (Zosyn) 3.375 gm in 50 mls @ 100 mls/hr IV Q6HR BHANU Stop: 02/23/24 01:50 Last Admin: 02/16/24 01:56 Dose: Not Given Methylprednisolone Sodium Succinate (Methylprednisolone Sod Succ 40 Mg Vial) 40 mg IVP Q6HR ONE Stop: 02/16/24 01:49 Last Admin: 02/16/24 02:10 Dose: 40 mg Rocuronium [place] (Rocuronium Inj 10 Mg/Ml Vial 10 Ml) 50 mg IVP X1 ONE Stop: 02/15/24 21:43 Last Admin: 02/15/24 22:05 Dose: 50 mg Succinylcholine Chloride (Succinylcholine Inj 20 Mg/Ml Vial 10 Ml) 125 mg IV X1 ONE Stop: 02/15/24 21:57 Last Admin: 02/15/24 21:56 Dose: 125 mg Assessment & Plan Plan Plan: Neurological #Intubate & sedated Patient requiring emergent intubation due to pneumothorax - Daily sedation holiday - Propofol GTT and Fentanyl GTT RASS goal -3 Cardiology #Atrial fibrillation with RVR Patient presented with atrial fibrillation with a pulse rate of 150's. Differential diagnoses include infection, anemia, toxins/thyroid/drugs, electrolytes/elevated blood pressure, sepsis/sleep apnea/sick sinus syndrome. CTA ruled out PE. This likely cause is drug induced as patient recently used methaphetamine as evidenced on Utox. Patient had a chest tube with recent bleeding as a contraindication for anticoagulation. Patient is currently hemodynamically stable and rate is controlled. PAtient is currently sedated and intubated and unable to relay if she has any chest pain. [id number] = 6 points indicating 9.7% risk of embolism per year. Work-up: ? EKG as needed for chest pain ? Continue telemetry monitoring ? Troponin: 0.122 ? BMP, Mg ? U tox positive for marijuana, methamphetamine and opiates ? TTE: Pending ? Ruled out PE/lung disease Plan: ? Rate control: Diltiazem GTT ? Anticoagulation: Will temporarily HOLD home anticoagulation (Eliquis 2.5 mg PO BID) in setting of chest tube - Hold metoprolol in setting of Meth usage and unopposed Alpha-receptor stimulation #Possible CHF Exacerbation Patient presented with symptoms of new onset worsening SOB. 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 DM2, hypertension. BNP: 539 CXR: evidence of pulmonary vascular congestion Last echo showed 35-30% EF. Workup: -Admit to telemetry -CBC, BMP, MG -Lipid Panel -EKG: Afib -Transthoracic Echo: Pending -Strict I/O's, & daily weights Pulmonary #Acute Hypoxic respiratory failure secondary to apical pneumothorax vs pneumonia vs Meth induced CHF exacerbation - Acid/base ABG 7.23/pCO2 52 /HCO3 22 - SBT when - I/O Gastrointestinal GI PXP: Pantopraxole 40 mg IV QDAY Renal/Genitourinary Stable; BUN/CR: 23 and 1.2 respectively #Hyperkalemia Potassium:5.4 Patient received IVF resusitation with normal saline Will trend with repeat AM CMP Endocrine #Hypothyroidism TSH: 11.12, Free T4: 0.77 Weight based dosing based on [place] body weight 1.6 mcg/kg 192 -Will start levothyroxine at 112 mcg ACBR vi OG tube #History of Type II Diabetes Mellitus - Hold patient's home Diabetes Medications - Patient started on Insulin Sliding scale - Q6hr accucheks - NPO - Follow up QAM CMP glucose level and Fingerstick Hematology #Normocytic Anemia H/H on admission: 10.0/32.0%; MCV: 85 DDX: acute blood loss, hemolysis, chronic inflammation Workup: -Reticulocyte count: Pending -Ferritin: Pending -Iron Panel: Pending Infectious Disease #Sepsis secondary to pneumonia versus UTI Patient met SIRS criteria (WBC 13.4, Tachycardia, tachypnea and Temp of 102) with 2 suspected sources of Pneumonia and UTI as evidenced on Chest/Abdomen/Pelvis CT and urinalysis trigerring a sepsis alert. Patient received 30 cc/kg and IV antibiotics doxycyline and Zosyn in the ED. Lactic Acid: 4.22, Procalcitonin 0.09, LDH 453 -Blood Cultures: Pending -Urine culture: Pending -MRSA nasal swab: Pending -C.U.R.B. 65 score: 2 points; Moderate risk group: 6.8% 30-day mortality. -qSOFA score: 1 Point; Not high risk Antibiotic regimen: Patient started on Vancoycin and Zosyn (02/15-) Skin - no acute issues, no evidence of skin breakdown - Code Status: Full COde - ICU indication: Patient admited to ICU for management of mechanical ventilation - GI ppx: Pantoprazole 40 mg qday - DVT ppx: SCD's -Lines: right subclavian central line (02/16/2024) -PIV: 20 guage right AC fossa, 20 guaage Left forearm (02/16/2024) -Zhou (02/16/2024) -Drips: Diltiazem GTT Patient's case was discussed with supervising attending physician Dr. Rafael Copeland M.D. Internal Medicine PGY-3 Attending Provider Attestation/Addendum Patient admited for sob, hypoxia, hypertensive emegerncy. Rapid AFIb noted. Diltiazem drip was started. She had poor peripheral IV. Central was inserted. Pt has pneumothorax right apical region for which chest tube was placed by ER, Dr. Martínez. Patient was kept on mechanical ventilation. She was admitted to the ICU. Case discussed with Dr. Copeland - ICU senior resident. will add diuretic as tolerated for CHF.
[2024-02-16 02:30] LABS: Lactic Acid, 3 HR 1.2 mMol/L (0.4-2.0)
[2024-02-16 02:54] LABS: Digoxin 0.2 ng/mL (0.8-2.0)
--- NOTE | 2024-02-16 03:31 | XR_ITS ---
Examination: AP chest single view Technique one AP portable semiupright chest single view Exam date and time: February 16, 2024 0339 hrs. Comparison February 16, 2024 0241 hrs. Indications: Hypoxic respiratory failure, postintubation, repositioned tracheal tube Findings: [id number] heart failure Mild enlargement cardiac contour. Prominent vascular congestion with perihilar edema Tracheal tube tip 6.1 cm above anne Right subclavian central line tip SVC The patient's right chest tube sidehole projects outside the lateral wall of the chest Minimal right apical pneumothorax less than 5% Impression: [id number] heart failure Endotracheal tube tip 6.1 cm above anne Recommend advancing the patient's right chest tube 4 cm
--- NOTE | 2024-02-16 03:31 | PC.RT ---
ETT advanced from 22cm at the gum to 23cm at the gum per DR Copeland.
[2024-02-16] MEDS: DILTIAZEM INJ 125 MG in DEXTROSE 5%-WATER 100 ML IV (03:57)
[2024-02-16] MEDS: ALBUTEROL/IPRATROPIUM (Duoneb) RT SOL 3 ML NEBU INH ×6 (04:11→22:17)
--- NOTE | 2024-02-16 05:17 | EKG_ITS ---
[facility] Test Date: 2024-02-16 Pat Name: SEAN GRULLON [facility] [employer]: TODD : [id number] Requested By: Aubrey Copeland Order Number: [id number] Reading MD: Aubrey Copeland Measurements Intervals [place] Rate: 112 P: CA: QRS: -78 QRSD: 90 T: 269 QT: 345 QTc: 473 Interpretive Statements ATRIAL FIBRILLATION WITH RAPID VENTRICULAR RESPONSE MARKED LEFT AXIS DEVIATION POSSIBLE RIGHT VENTRICULAR CONDUCTION DELAY ANTEROSEPTAL MYOCARDIAL INFARCTION , OF INDETERMINATE AGE Compared to ECG 01/01/2024 02:51:52 Left-axis deviation now present Myocardial infarct finding now present Ventricular premature complex(es) no longer present Aberrant conduction of supraventricular beat(s) no longer present T-wave abnormality no longer present /store/S0/[id number].pdf
[2024-02-16 05:19] LABS: Base Excess -3 (-3-3); HCO3 22 mEq/L (20-26); Inspired Oxygen, FIO2 50 %; O2 Saturation 100 % (91-98); PCO2 41 mmHg (32.0-48.0); PO2 141 mmHg (83-108); pH, Arterial 7.34 (7.35-7.45)
[2024-02-16 05:35] LABS: Allen Test Performed/OK; Puncture Site Right Brachial
[2024-02-16] MEDS: PIPER/TAZO 3.375 GM 3.375 GM/50 ML BAG IV ×3 (06:19→21:26)
[2024-02-16] MEDS: LEVOTHYROXINE SODIUM 112 MCG TABLET GT (06:25)
[2024-02-16 06:50] LABS: Basophils % (Auto) 0 % (0-2.5); Eosinophils % (Auto) 0 % (0-10); Hematocrit 29.5 % (36.0-46.0); Hemoglobin 9.3 g/dL (12.0-16.0); Immature Granulocytes % (Auto) 1 % (0-0); Immature Granulocytes Auto 0.08 Thou/mm3 (0.00-0.00); Immature Reticulocyte Fraction 27.5 % (3.0-15.9); Lymphocytes # (Auto) 0.6 Thou/mm3 (1.0-4.8); Lymphocytes % (Auto) 6 % (10-50); Mean Corpuscular HGB Conc 31.5 g/dl (31.0-37.0); Mean Corpuscular Hemoglobin 26.6 pg (25.0-35.0); Mean Corpuscular Volume 85 fL (80-100); Monocytes # (Auto) 0.5 Thou/mm3 (0.0-0.8); Monocytes % (Auto) 5 % (0-12); Neutrophils # (Auto) 9.6 Thou/mm3 (1.8-7.7); Neutrophils % (Auto) 89 % (37-80); Nucleated Red Blood Cell % 0 /100 WBC (0); Platelet Count 222 Thou/mm3 (140-440); RDW Standard Deviation 56.3 fL (36.4-46.3); Red Blood Count 3.49 Miln/mm3 (4.00-5.20); Reticulocyte % (Auto) 2.8 % (0.5-1.5); Reticulocyte Hgb Content 25.3 pg (28.0-35.0); White Blood Count 10.8 Thou/mm3 (3.6-11.0)
[2024-02-16 07:10] LABS: Alanine Aminotransferase 27 U/L (10-49); Albumin, Serum 3.3 gm/dL (3.4-4.8); Albumin/Globulin Ratio 1.1 (1.2-2.2); Alkaline Phosphatase 92 U/L (46-116); Anion Gap 6 (7-16); Aspartate Amino Transferase 75 U/L (0-34); BUN/Creatinine Ratio 24 Ratio (12-20); Bilirubin,Total 0.3 mg/dL (0.3-1.2); Blood Urea Nitrogen 22 mg/dL (9-23); Calcium 7.5 mg/dL (8.3-10.6); Calcium (Corrected) 8.1 mg/dL (8.5-10.1); Carbon Dioxide 22.5 mMol/L (20.0-31.0); Chloride 104 mMol/L (98-107); Creatinine (Component) 0.9 mg/dL (0.6-1.3); Estimated Creatinine Clearance 58.3 mL/min (>60); Globulin 2.9 gm/dL (2.3-3.5); Glucose 245 mg/dL (74-106); Magnesium 1.6 mg/dL (1.6-2.6); Osmolality,Calculated 275 (275-295); Potassium 5.2 mMol/L (3.4-5.1); Sodium 132 mMol/L (136-145); Total Protein 6.2 gm/dL (5.7-8.2); eGFR > 60 See Note
[2024-02-16 07:17] LABS: Glucose Estimated Average 171 mg/dL (80-131); Hemoglobin A1C 7.6 % Hgb (4.8-6.0)
[2024-02-16 07:20] LABS: Total Iron Binding Capacity 281 mcg/dL (250-425)
[2024-02-16 07:30] LABS: Ferritin 96 ng/mL (7.3-270.7); Iron 16 mcg/dL (50-170); Percent Iron Saturation 5 % (20-55); Unsaturated Iron Binding 265 (225-295)
[2024-02-16 07:38] LABS: Troponin I 0.202 ng/mL (0.0-0.045)
[2024-02-16] MEDS: MIDAZOLAM/NS 100 MG IVPB 100 MG/100 ML BAG 8 MG IV (08:24)
[2024-02-16] MEDS: PANTOPRAZOLE 40 MG TABLET PO (09:15)
[2024-02-16 09:20] LABS: INR 1.1 (0.9-1.3); Partial Thromboplastin Time 25.4 Seconds (22.0-36.0); Prothrombin Time 11.5 Seconds (9.0-12.2)
[2024-02-16 09:28] LABS: INR 1.1 (0.9-1.3); Partial Thromboplastin Time 26.9 Seconds (22.0-36.0); Prothrombin Time 11.7 Seconds (9.0-12.2)
[2024-02-16] MEDS: PROPOFOL 1,000 MG IVPB 1,000 MG/100 ML VIAL 7.729 MG IV (09:30)
--- NOTE | 2024-02-16 09:57 | PC.SS ---
[employer] confirmed with [facility] staff, Anya Amaya, that patient did not come from their facility. Patient left SNF last month AMA.
--- NOTE | 2024-02-16 10:14 | PD.IMCONS ---
HPI Data of Consult Requesting Physician: Koko Buchanan MD Primary Care Provider: Physician No Primary/Family Consult Narrative History of present illness: This is a 63-year-old lady with a past medical history significant for Hypertension, hyperlipidemia, IDDM, COPD, CHF, atrial fibrillation, DFU secondary to peripheral arterial disease status post debridement, history of femoral endarterectomy Patient was admitted with increasing shortness of breath In the emergency room patient rash markedly short of breath subsequently she was intubated Initial EKG was showing tachycardia heart rate was in the 120 to 130 bpm atrial fibrillation Subsequently patient also developed right apical pneumothorax which was treated with chest tube placement Cardiology consultation requested for atrial fibrillation cc:: cc: Koko Buchanan MD Meds Home Medications and Allergies Allergies Allergy/AdvReac Type Severity Reaction Status Date / Time No Known Allergies Allergy Verified 02/10/23 13:49 Exam Vital Signs Temp Pulse Resp BP Pulse Ox O2 Del Method O2 Flow Rate 96.4 F L 118 H 45 H 123/88 H 100 Mechanical Ventilation 15 02/16/24 03:00 02/16/24 07:30 02/16/24 07:30 02/16/24 07:30 02/16/24 07:30 02/16/24 01:25 02/15/24 21:00 FiO2 40 02/16/24 06:06 Routine HEENT Exam Head: Present normocephalic and atraumatic Eye: Present EOMI and PERRL ENT: Present mucous membranes moist Routine Neck Exam Neck: Present supple and trachea midline Routine Cardiovascular Exam Cardiovascular: Present RRR Routine Abdominal Exam Abdominal: Present soft and normoactive bowel sounds Routine Extremities Exam Extremities: Present full ROM Routine Skin Exam Skin: Present intact, dry and warm Routine Neurological Exam Neurological: Present alert, oriented X3 and CN II-XII intact Routine Psychiatric Exam Psychiatric: Present normal affect and normal thought process Results Labs 02/16/24 05:50 02/16/24 05:50 Labs: Short CBC 02/15/24 02/16/24 Range/Units 23:02 05:50 WBC 13.4 H 10.8 (3.6-11.0) Thou/mm3 Hgb 10.0 L 9.3 L (12.0-16.0) g/dL Hct 32.0 L 29.5 L (36.0-46.0) % Plt Count 281 D 222 D (140-440) Thou/mm3 BMP 02/15/24 02/16/24 23:02 05:50 Sodium 130 L 132 L Potassium 5.4 H 5.2 H Chloride 100 104 Carbon Dioxide 21.5 22.5 BUN 23 22 Creatinine 1.2 0.9 Glucose 295 H 245 H D Calcium 8.2 L 7.5 L Cardiac Enzymes 02/15/24 02/16/24 Range/Units 23:02 05:50 Troponin I 0.122 H* 0.202 H* (0.0-0.045) ng/mL Liver Function 02/15/24 02/16/24 Range/Units 23:02 05:50 Total Bilirubin 0.5 0.3 (0.3-1.2) mg/dL AST 77 H 75 H (0-34) U/L ALT 31 27 (10-49) U/L Alkaline Phosphatase 109 92 (46-116) U/L Albumin 4.0 3.3 L D (3.4-4.8) gm/dL Urine 02/15/24 Range/Units 23:23 Urine Color Yellow (Lt Yel-Yel) Urine Clarity Hazy (Clear/Hazy) Urine pH 6.0 (5.0-7.0) Ur Specific [place] 1.024 (1.001-1.035) Urine Protein 3+ A (Neg - Trace) Urine Glucose (UA) 2+ A (Negative) ABG Interpretation ABG results: 02/15/24 02/16/24 02/16/24 22:46 00:31 04:50 ABG pH 7.20 L 7.23 L 7.34 L D ABG pCO2 51 H 52 H 41 D ABG pO2 248 H 90 D 141 H D ABG HCO3 20 22 22 ABG O2 Saturation 101 H 96 100 H ABG Base Excess -8 L -6 L -3 Assessment and Plan Assessment and plan (1) Atrial fibrillation, rapid: Status: Acute (2) Respiratory failure: Status: Acute (3) Elevated troponin: Status: Acute (4) Congestive heart failure: Status: Acute (5) COPD (chronic obstructive pulmonary disease): Status: Acute (6) Hypertension: Status: Acute (7) Diabetes: Status: Acute Additional Assessment & Plan Additional Plan: Patient currently on the ventilator sedated Heart rate is around 100 Atrial fibrillation Patient had a minimal elevation of troponin Continue Cardizem drip We will follow-up Patient is also receiving antibiotics for sepsis infection
[2024-02-16] MEDS: METOPROLOL TARTRATE 25 MG TABLET 50 MG PO ×2 (11:36→21:26)
--- NOTE | 2024-02-16 15:37 | PC.SS ---
MANAGER CT attempted phone contact with patient's partner, Eglin Vance; no response. MANAGER CT left message requesting return call. Patient currently in ICU, intubated.
[2024-02-16] MEDS: DIGOXIN INJ 0.25 MG/ML AMP 2 ML IVP (16:26)
[2024-02-16] MEDS: DEXMEDETOMIDINE 200 MCG IVPB 200 MCG/50 ML BOTTLE IV (18:11)
[2024-02-16 18:31] LABS: Troponin I 0.107 ng/mL (0.0-0.045)
[2024-02-16] MEDS: PROPOFOL 1,000 MG IVPB 1,000 MG/100 ML VIAL 13.526 MG IV (20:18)
--- NOTE | 2024-02-16 21:12 | ESPR_ITS ---
<Statement entered by Marline Holt DO - 02/17/24 12:32> Senior attestation: Patient was examined and case was reviewed with team including attending physician. Note reviewed, I agree with most of its contents and agree with the patient's care. Patient remain on mechanical ventilation today, will reduce sedation and consider SBT/extubation tomorrow as warranted. Chest tube remains in place, ~50 cc fluid in pleur evac noted. Cardiology following, advised continued cardizem drip. Will consider IV heparin tomorrow for anticoagulation as patient's last home eliquis dose was within last ~24 hours. Marline Holt DO PGY-3 Documentation for date of: 02/16/24 Subjective Subjective Interval history: 02/15: Patient seen and examined at beside. No acute events overnight. Patient remains sedated and mechanically ventilated. Will decrease propofol and fentanyl and reassess responsiveness for possible SBT tomorow. Chest tube still in place unclamped with approx 45cc fluid drained. Repeat CXR to monitor resolution of pneumothorax. Dr. Prabhakar was consulted due to patient's new onset A-fib with RVR. Will complete diltiazem drip and start patient on IV digoxin 0.25mg daily for RR control. Increase metoprolol to 50 mg BID as part of GDMT/antirhythmic. Heparin bridge tomorrow if patient continues to remain off Eliquis. WBCs down trended 10.8, sodium 132, potassium downtrending to 5.2, creatinine down trended 0.9. ABG pH 7.34, pCO2 41, pO2 141 FiO2 50. Ventilator settings tidal volume 400, respiratory rate 20, PEEP 5, FiO2 30. 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, open wound with granulation tissue noted Neuro: Unable to assess Objective Labs 02/17/24 04:14 02/17/24 04:14 Labs: Laboratory Results - last 24 hr 02/15/24 02/15/24 02/15/24 22:46 23:02 23:23 WBC 13.4 H RBC 3.77 L Hgb 10.0 L Hct 32.0 L MCV 85 MCH 26.5 MCHC 31.3 RDW Std Deviation 56.7 H Plt Count 281 D Neut % (Auto) 87 H Lymph % (Auto) 7 L [place] % (Auto) 6 Eos % (Auto) 0 Baso % (Auto) 0 Neut # (Auto) 11.6 H Lymph # (Auto) 0.9 L [place] # (Auto) 0.8 Eos # (Auto) 0.0 Baso # (Auto) 0.0 Immature Gran # (Auto) 0.10 H Absolute Nucleated RBC 0.00 Immature Gran % 1 H Nucleated RBC % 0 Retic Count (auto) Absolute Retic Immature Retic Fraction Retic Hgb Content CHr PT 11.5 INR 1.1 APTT 25.4 Puncture Site Left Radial ABG pH 7.20 L ABG pCO2 51 H ABG pO2 248 H ABG HCO3 20 ABG O2 Saturation 101 H ABG Base Excess -8 L FiO2 100 Sodium 130 L Potassium 5.4 H Chloride 100 Carbon Dioxide 21.5 Anion Gap 9 BUN 23 Creatinine 1.2 Estim Creat Clear Calc 43.8 L eGFR 50 L BUN/Creatinine Ratio [address]ucose [address] Glu mg/dL Hemoglobin A1c Calculated Osmolality 275 Lactic Acid 4.2 H* Calcium 8.2 L Corrected Calcium 8.2 L Phosphorus 5.7 H Magnesium 1.8 Iron TIBC Iron Saturation Unsat Iron Binding Ferritin Total Bilirubin 0.5 AST 77 H ALT 31 Alkaline Phosphatase 109 Lactate Dehydrogenase 453 H Troponin I 0.122 H* B-Natriuretic Peptide 539 H* Total Protein 7.3 Albumin 4.0 Globulin 3.3 Albumin/Globulin Ratio 1.2 Lipase 39 Procalcitonin 0.09 TSH 11.12 H Free T4 0.77 L Ur Collection Type Clean Catch Urine Color Yellow Urine Clarity Hazy Urine pH 6.0 Ur Specific [place] 1.024 Urine Protein 3+ A Urine Glucose (UA) 2+ A Urine Ketones Negative Urine Blood 3+ A Urine Nitrite Negative Urine Bilirubin Negative Urine Urobilinogen (Auto) Negative Ur Leukocyte Esterase Negative Urine RBC 14 H Urine WBC 22 H Ur Squamous Epith Cells 11 H Urine Bacteria Rare Hyaline Casts < 1 Urine Yeast (Budding) Present A Urine Sperm Absent Digoxin Urine Opiates Screen Positive A Urine Fentanyl Screen Negative Ur Barbiturates Screen Negative U Amphetamin/Meth Scrn Positive A U Benzodiazepines Scrn Negative U Cocaine Metab Screen Negative U Marijuana (THC) Screen Positive A RSV Rapid Negative 02/16/24 02/16/24 02/16/24 00:31 02:26 04:50 WBC RBC Hgb Hct MCV MCH MCHC RDW Std Deviation Plt Count Neut % (Auto) Lymph % (Auto) [place] % (Auto) Eos % (Auto) Baso % (Auto) Neut # (Auto) Lymph # (Auto) [place] # (Auto) Eos # (Auto) Baso # (Auto) Immature Gran # (Auto) Absolute Nucleated RBC Immature Gran % Nucleated RBC % Retic Count (auto) Absolute Retic Immature Retic Fraction Retic Hgb Content CHr PT 11.7 INR 1.1 APTT 26.9 Puncture Site Left Radial Right Brachial ABG pH 7.23 L 7.34 L D ABG pCO2 52 H 41 D ABG pO2 90 D 141 H D ABG HCO3 22 22 ABG O2 Saturation 96 100 H ABG Base Excess -6 L -3 FiO2 65 50 Sodium Potassium Chloride Carbon Dioxide Anion Gap BUN Creatinine Estim Creat Clear Calc eGFR BUN/Creatinine Ratio Glucose Estimated Ave Glu mg/dL Hemoglobin A1c Calculated Osmolality Lactic Acid 1.2 Calcium Corrected Calcium Phosphorus Magnesium Iron TIBC Iron Saturation Unsat Iron Binding Ferritin Total Bilirubin AST ALT Alkaline Phosphatase Lactate Dehydrogenase Troponin I B-Natriuretic Peptide Total Protein Albumin Globulin Albumin/Globulin Ratio Lipase Procalcitonin TSH Free T4 Ur Collection Type Urine Color Urine Clarity Urine pH Ur Specific [place] Urine Protein Urine Glucose (UA) Urine Ketones Urine Blood Urine Nitrite Urine Bilirubin Urine Urobilinogen (Auto) Ur Leukocyte Esterase Urine RBC Urine WBC Ur Squamous Epith Cells Urine Bacteria Hyaline Casts Urine Yeast (Budding) Urine Sperm Digoxin 0.2 L Urine Opiates Screen Urine Fentanyl Screen Ur Barbiturates Screen U Amphetamin/Meth Scrn U Benzodiazepines Scrn U Cocaine Metab Screen U Marijuana (THC) Screen RSV Rapid 02/16/24 02/16/24 02/16/24 05:50 11:00 17:34 WBC 10.8 RBC 3.49 L Hgb 9.3 L Hct 29.5 L MCV 85 MCH 26.6 MCHC 31.5 RDW Std Deviation 56.3 H Plt Count 222 D Neut % (Auto) 89 H Lymph % (Auto) 6 L [place] % (Auto) 5 Eos % (Auto) 0 Baso % (Auto) 0 Neut # (Auto) 9.6 H Lymph # (Auto) 0.6 L [place] # (Auto) 0.5 Eos # (Auto) 0.0 Baso # (Auto) 0.0 Immature Gran # (Auto) 0.08 H Absolute Nucleated RBC 0.00 Immature Gran % 1 H Nucleated RBC % 0 Retic Count (auto) 2.8 H Absolute Retic 96.0 H Immature Retic Fraction 27.5 H Retic Hgb Content CHr 25.3 L PT INR APTT Puncture Site ABG pH ABG pCO2 ABG pO2 ABG HCO3 ABG O2 Saturation ABG Base Excess FiO2 Sodium 132 L Potassium 5.2 H Chloride 104 Carbon Dioxide 22.5 Anion Gap 6 L BUN 22 Creatinine 0.9 Estim Creat Clear Calc 58.3 L eGFR > 60 BUN/Creatinine Ratio 24 H Glucose [address] Glu mg/dL 171 H Hemoglobin A1c 7.6 H Calculated Osmolality 275 Lactic Acid Calcium 7.5 L Corrected Calcium 8.1 L Phosphorus Magnesium 1.6 Iron 16 L TIBC 281 Iron Saturation 5 L Unsat Iron Binding 265 Ferritin 96 Total Bilirubin 0.3 AST 75 H ALT 27 Alkaline Phosphatase 92 Lactate Dehydrogenase Troponin I 0.202 H* 0.130 H* 0.107 H* B-Natriuretic Peptide Total Protein 6.2 Albumin 3.3 L D Globulin 2.9 Albumin/Globulin Ratio 1.1 L Lipase Procalcitonin TSH Free T4 Ur Collection Type Urine Color Urine Clarity Urine pH Ur Specific [place] Urine Protein Urine Glucose (UA) Urine Ketones Urine Blood Urine Nitrite Urine Bilirubin Urine Urobilinogen (Auto) Ur Leukocyte Esterase Urine RBC Urine WBC Ur Squamous Epith Cells Urine Bacteria Hyaline Casts Urine Yeast (Budding) Urine Sperm Digoxin Urine Opiates Screen Urine Fentanyl Screen Ur Barbiturates Screen U Amphetamin/Meth Scrn U Benzodiazepines Scrn U Cocaine Metab Screen U Marijuana (THC) Screen RSV Rapid ABG Interpretation ABG results: 02/15/24 02/16/24 02/16/24 22:46 00:31 04:50 ABG pH 7.20 L 7.23 L 7.34 L D ABG pCO2 51 H 52 H 41 D ABG pO2 248 H 90 D 141 H D ABG HCO3 20 22 22 ABG O2 Saturation 101 H 96 100 H ABG Base Excess -8 L -6 L -3 Quality Measures Quality Measures sepsis Current suspected stage: sepsis Possible source: genitourinary and other Blood cultures ordered: yes Antibiotic ordered: Yes Advance care planning discussed with:: other Assessment & Plan Assessment Current Active Medications: Generic Name Dose Route Start Last Admin Trade Name Freq PRN Reason Stop Dose Admin Acetaminophen 650 mg 02/16/24 01:28 Acetaminophen 325 Mg Tablet PO 03/17/24 01:27 Q4HR PRN PAIN SCALE 1-3 (mild Acetaminophen 650 mg 02/16/24 01:28 Acetaminophen Supp 650 Mg Supp WA 03/17/24 01:27 Q4HR PRN PAIN SCALE 1-3 (mild Albuterol 2.5 mg 02/16/24 01:44 Albuterol Rt 2.5 Mg/0.5 Ml Nebu INH 03/17/24 01:43 Q2H PRN WHEEZING Albuterol/Ipratropium 3 ml 02/16/24 03:00 02/16/24 18:25 Albuterol/Ipratropium (Duoneb) Rt Zahida 3 Ml Nebu INH 03/17/24 02:59 3 ml Q4HRRT BHANU Administration Dextrose 50 ml 02/16/24 01:54 Dextrose 50%-Water Inj 50 Ml Syringe IV 03/17/24 01:53 Q15MIN PRN BG <50 OR BG <70 & pt unresponsive Dextrose 25 ml 02/16/24 01:54 Dextrose 50%-Water Inj 50 Ml Syringe IV 03/17/24 01:53 Q15MIN PRN BG 50-70 responsive npo pt Digoxin 0.25 mg 02/16/24 15:15 02/16/24 16:26 Digoxin Inj 0.25 Mg/Ml Amp 2 Ml IVP 03/17/24 15:14 0.25 mg QDAY BHANU Administration Glucagon 1 mg 02/16/24 01:54 Glucagon Inj 1 Mg Vial IM Q15MIN PRN BG <70, and no IV access Propofol 1,000 mg in 100 mls @ 1.932 mls/hr 02/15/24 21:57 02/16/24 20:18 Diprivan Ivpb IV 03/16/24 21:56 35 mcg/kg/min .Q24H PRN 13.526 mls/hr PER PROTOCOL Administration Protocol 5 MCG/KG/MIN Piperacillin/Tazobactam/Dextrose 3.375 gm in 50 mls @ 12.5 mls/hr 02/16/24 06:00 02/16/24 16:16 Zosyn IV 02/23/24 01:50 12.5 mls/hr Q8HR BHANU Administration Vancomycin HCl 250 mls @ 120 mls/hr 02/16/24 22:00 Vancomycin/Water 1250 Mg Ivpb IV 02/23/24 21:59 QPM@2200 BHANU Protocol Dexmedetomidine/Sodium Chloride 200 mcg in 50 mls @ 3.445 mls/hr 02/16/24 17:57 02/16/24 20:00 Precedex Ivpb IV 03/17/24 17:56 0.6 mcg/kg/hr .[id number] PRN 10.335 mls/hr Per PROTOCOL Titration Protocol 0.2 MCG/KG/HR Insulin Human Lispro 0 unit 02/16/24 07:30 02/16/24 17:58 Insulin Lispro (Admelog) 1 Unit/0.01 Ml Unit SC 03/17/24 07:29 Not Given AC [facility] Protocol Levothyroxine Sodium 112 mcg 02/16/24 06:00 02/16/24 06:25 Levothyroxine Sodium 112 Mcg Tablet GT 03/17/24 05:59 112 mcg ACBR BHANU Administration Methylprednisolone Sodium Succinate 40 mg 02/17/24 09:00 Methylprednisolone Sod Succ 40 Mg Vial IVP 02/24/24 08:59 QDAY BHANU Metoprolol Tartrate 50 mg 02/16/24 10:45 02/16/24 11:36 Metoprolol Tartrate 25 Mg Tablet PO 03/17/24 10:44 50 mg BID BHANU Administration Pantoprazole Sodium 40 mg 02/16/24 09:00 02/16/24 09:15 Pantoprazole 40 Mg Tablet PO 03/17/24 08:59 40 mg QDAY BHANU Administration Pharmacy Consult 1 each 02/16/24 09:00 Pharmacy Renal Dose Adjustment 1 Ea XX 03/17/24 08:59 QDAY PRN PROTOCOL Pharmacy Consult 1 each 02/16/24 01:50 Vancomycin Pharmacy To Dose 1 Each Each IV 03/17/24 01:49 QDAY PRN PROTOCOL Sodium Chloride 3 ml 02/16/24 01:44 Sodium Chloride Rt Zahida 0.9% 3 Ml Nebu INH 03/17/24 01:43 PRN PRN SOLN Plan 63 yr female presented to ED after experiencing shortness of breath. Patient was eventually intubated and put on mechanical ventilator after pneumothorax developed while attempting subclavian line. Admitted for treatment of pneumothorax and management of new onset A-fib RVR. Neurological #Intubate & sedated Patient requiring emergent intubation due to pneumothorax - Propofol GTT and Fentanyl GTT RASS goal -3 -wean off sedations to assess mental status and possible SBT tomorrow Cardiology #Atrial fibrillation with RVR Patient presented with atrial fibrillation with a pulse rate of 150's. Differential diagnoses include infection, anemia, toxins/thyroid/drugs, electrolytes/elevated blood pressure, sepsis/sleep apnea/sick sinus syndrome. CTA ruled out PE. This likely cause is drug induced as patient recently used methaphetamine as evidenced on Utox. Patient had a chest tube with recent bleeding as a contraindication for anticoagulation. Patient is currently hemodynamically stable and rate is controlled. PAtient is currently sedated and intubated and unable to relay if she has any chest pain. [id number] = 6 points indicating 9.7% risk of embolism per year. ? complete Diltiazem drip for rate control -start IV dig 0.25mg daily once completed ? Anticoagulation: Will temporarily HOLD home anticoagulation (Eliquis 2.5 mg PO BID) in setting of chest tube -start heparin bridge tomorrow #Possible CHF Exacerbation Patient presented with symptoms of new onset worsening SOB. 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 DM2, hypertension. BNP: 539 CXR: evidence of pulmonary vascular congestion Last echo showed 35-30% EF in 2019. -Dr. Prabhakar consulted -echo pending -daily weights -strict INOs -low sodium diet -restrict fluid to 1500mL -keep potassium >4, mag >2 -daily CBC, CMP -hold off Lasix until AMELIA improved Pulmonary #AHRF 2/2 apical pneumothorax vs pneumonia vs Meth induced CHF exacerbation - Acid/base ABG 7.34/pCO2 41 /HCO3 22 - SBT tomorrow -echo pending -repeat CXR for resolution -vanc/zosyn for PNA #Hx COPD Increased lung volume noticed on chest x-ray. DuoNeb 3 mL every 4 hours and methylprednisone 40 g every 6 hours Gastrointestinal no active problems Renal: Stable; BUN/CR: 23 and 1.2 on admission #AMELIA-resolved Most like pre renal in setting of decreased perfusion/decreased CO due to underlying arrhythmia and history of CHF --maintenance fluids -avoid nephrotoxic agents -daily CMP #Hyperkalemia resolving Potassium:5.4-->5.2 Patient received IVF resusitation with normal saline Will trend with repeat AM CMP Endocrine #Hypothyroidism TSH: 11.12, Free T4: 0.77 Weight based dosing based on [place] body weight 1.6 mcg/kg 192 -Will start levothyroxine at 112 mcg vi OG tube #History of Type II Diabetes Mellitus - Hold patient's home Diabetes Medications - Patient started on Insulin Sliding scale - Q6hr accucheks - NPO - Follow up QAM CMP glucose level and Fingerstick Hematology #Normocytic Anemia H/H on admission: 10.0/32.0%; MCV: 85 DDX: acute blood loss, hemolysis, chronic inflammation Workup: -Reticulocyte count: Pending -Ferritin: Pending -Iron Panel: Pending Infectious Disease #Sepsis secondary to pneumonia versus UTI Patient met SIRS criteria (WBC 13.4, Tachycardia, tachypnea and Temp of 102) with 2 suspected sources of Pneumonia and UTI as evidenced on Chest/Abdomen/Pelvis CT and urinalysis trigerring a sepsis alert. Patient received 30 cc/kg and IV antibiotics doxycyline and Zosyn in the ED. Lactic Acid: 4.22, Procalcitonin 0.09, LDH 453 -Blood Cultures: preliminary neg -Urine culture: Pending -MRSA nasal swab: Pending -C.U.R.B. 65 score: 2 points; Moderate risk group: 6.8% 30-day mortality. Antibiotic regimen: Patient started on Vancoycin and Zosyn (02/15-) Skin wound care consulted for right toe wound Health maintenance: Dispo: ICU ventialted, sepsis 2/2 HAP ,UTI DVT prophylaxis:SCDs CODE STATUS: Full code Lines: right subclavian central line (02/16/2024) PIV: 20 guage right AC fossa, 20 guaage Left forearm (02/16/2024) Zhou (02/16/2024) The patient's management plan was discussed with my attending physician Dr. Pavon and senior Dr. Holt. Kaitlynn Boles, PGY-1 Attending Provider Attestation/Addendum Patient seen and examined with above resident, Kaitlynn Boles MD. I agree with the findings, assessment, and plan of care as documented except for any differences below. 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 Patient with difficult access wanting placement of central line. Course complicated by presence of right-sided pneumothorax post procedure. Chest tube was placed in the emergency department and patient was intubated for increased work of breathing. Patient remains tachycardic with atrial fibrillation. Load patient with digoxin for adequate rate control. Will wean off of diltiazem to avoid negative inotropic given she has reduced ejection fraction of 25 to 30% on prior echo imaging. Patient remains synchronous with vent on heavy sedation, will rest today with no plan for SAT and reapproach this tomorrow likely after adequate time for metabolism of the use of her illicit substances. Patient remains otherwise hemodynamically stable at this time. Cardiology is following and we will await additional input from them. Patient with mild AMELIA which is likely to improve with rate control and optimization of hemodynamics. Hold off on additional diuretics at this point. Possible sepsis from urinary tract infection or pneumonia. Patient placed on empiric antibiotics with broad-spectrum coverage for possible healthcare associated infection. Patient's chest tube remains on suction with small airleak persistent. Will not even try a clamp trial until patient is off positive pressure ventilation. Total critical care time: Personally spent 35 minutes for review of physiologic parameters and directing plan of care throughout the day. This is exclusive of time spent teaching housestaff or performing any separate billable procedures. Patient continues require critical care services for acute hypoxic respiratory failure secondary to right postprocedural pneumothorax in setting of COPD. Patient remains at risk for further deterioration in clinical status with increased morbidity and mortality.
[2024-02-16] MEDS: VANCOMYCIN/WATER 1250 MG IVPB 250 ML 120 MG IV (21:26)
[2024-02-16] MEDS: DEXMEDETOMIDINE 200 MCG IVPB 200 MCG/50 ML BOTTLE 17.225 MCG IV (22:15)
[2024-02-17] VITALS (72 sets, daily range): BP systolic 89–187; BP diastolic 63–108; PULSE 82–156; RESP 13–44; TEMP 36.1–36.7; O2SAT 90–100; BMI 25.2; BMI 25.1
[2024-02-17] MEDS: DEXMEDETOMIDINE 200 MCG IVPB 200 MCG/50 ML BOTTLE 17.225 MCG IV ×3 (01:35→07:58)
[2024-02-17] MEDS: ALBUTEROL/IPRATROPIUM (Duoneb) RT SOL 3 ML NEBU INH ×6 (02:24→22:17)
[2024-02-17 04:41] LABS: Base Excess 0 (-3-3); HCO3 24 mEq/L (20-26); Inspired Oxygen, FIO2 30 %; O2 Saturation 98 % (91-98); PCO2 38 mmHg (32.0-48.0); PO2 93 mmHg (83-108); pH, Arterial 7.41 (7.35-7.45)
[2024-02-17 04:51] LABS: Allen Test Performed/OK; Puncture Site Right Brachial
[2024-02-17] MEDS: PROPOFOL 1,000 MG IVPB 1,000 MG/100 ML VIAL 13.526 MG IV (04:58)
[2024-02-17] MEDS: LEVOTHYROXINE SODIUM 112 MCG TABLET GT (05:24)
[2024-02-17] MEDS: PIPER/TAZO 3.375 GM 3.375 GM/50 ML BAG IV ×3 (05:25→22:29)
[2024-02-17 05:55] LABS: Basophils % (Auto) 0 % (0-2.5); Eosinophils % (Auto) 0 % (0-10); Hematocrit 28.4 % (36.0-46.0); Hemoglobin 8.9 g/dL (12.0-16.0); Immature Granulocytes % (Auto) 1 % (0-0); Immature Granulocytes Auto 0.05 Thou/mm3 (0.00-0.00); Lymphocytes # (Auto) 1.3 Thou/mm3 (1.0-4.8); Lymphocytes % (Auto) 14 % (10-50); Mean Corpuscular HGB Conc 31.3 g/dl (31.0-37.0); Mean Corpuscular Hemoglobin 26.3 pg (25.0-35.0); Mean Corpuscular Volume 84 fL (80-100); Monocytes # (Auto) 0.9 Thou/mm3 (0.0-0.8); Monocytes % (Auto) 9 % (0-12); Neutrophils # (Auto) 7.4 Thou/mm3 (1.8-7.7); Neutrophils % (Auto) 76 % (37-80); Nucleated Red Blood Cell % 0 /100 WBC (0); Platelet Count 215 Thou/mm3 (140-440); RDW Standard Deviation 55.2 fL (36.4-46.3); Red Blood Count 3.38 Miln/mm3 (4.00-5.20); White Blood Count 9.7 Thou/mm3 (3.6-11.0)
[2024-02-17 06:20] LABS: Alanine Aminotransferase 31 U/L (10-49); Albumin/Globulin Ratio 1.2 (1.2-2.2); Alkaline Phosphatase 74 U/L (46-116); Anion Gap 7 (7-16); Aspartate Amino Transferase 52 U/L (0-34); BUN/Creatinine Ratio 28 Ratio (12-20); Bilirubin,Total 0.4 mg/dL (0.3-1.2); Blood Urea Nitrogen 25 mg/dL (9-23); Calcium 7.7 mg/dL (8.3-10.6); Calcium (Corrected) 8.5 mg/dL (8.5-10.1); Carbon Dioxide 25.1 mMol/L (20.0-31.0); Chloride 106 mMol/L (98-107); Creatinine (Component) 0.9 mg/dL (0.6-1.3); Estimated Creatinine Clearance 58.3 mL/min (>60); Globulin 2.5 gm/dL (2.3-3.5); Glucose 168 mg/dL (74-106); Osmolality,Calculated 284 (275-295); Potassium 4.8 mMol/L (3.4-5.1); Sodium 138 mMol/L (136-145); Total Protein 5.5 gm/dL (5.7-8.2); eGFR > 60 See Note
[2024-02-17] MEDS: METOPROLOL TARTRATE 25 MG TABLET 50 MG PO ×2 (08:27→20:37)
[2024-02-17] MEDS: Silvasorb Gel 45 ML TUBE TOP (08:28)
[2024-02-17] MEDS: DIGOXIN INJ 0.25 MG/ML AMP 2 ML IVP (08:28)
[2024-02-17] MEDS: PANTOPRAZOLE 40 MG TABLET PO (08:28)
--- NOTE | 2024-02-17 08:53 | PD.IMPROG ---
Documentation for date of: 02/17/24 Subjective Subjective Interval history: still in afib HR around 100 contiue digozxin consider anticoagulation Exam Vital Signs Temp Pulse Resp BP Pulse Ox O2 Del Method O2 Flow Rate 97.6 F 103 H 20 110/71 98 Mechanical Ventilation 15 02/17/24 04:00 02/17/24 08:28 02/17/24 06:25 02/17/24 08:28 02/17/24 08:23 02/16/24 01:25 02/17/24 04:00 FiO2 30 02/17/24 08:23 Routine HEENT Exam Head: Present normocephalic and atraumatic Eye: Present EOMI and PERRL ENT: Present mucous membranes moist Routine Neck Exam Neck: Present supple and trachea midline Routine Respiratory Exam Respiratory: Present chest non-tender, lungs clear, normal breath sounds and no resp distress Routine Cardiovascular Exam Cardiovascular: Present RRR Routine Abdominal Exam Abdominal: Present soft and normoactive bowel sounds Routine Extremities Exam Extremities: Present full ROM Routine Skin Exam Skin: Present intact, dry and warm Routine Neurological Exam Neurological: Present alert, oriented X3 and CN II-XII intact Routine Psychiatric Exam Psychiatric: Present normal affect and normal thought process Objective Labs 02/17/24 04:14 02/17/24 04:14 Labs: Laboratory Results - last 24 hr 02/15/24 02/16/24 02/16/24 23:02 02:26 11:00 WBC RBC Hgb Hct MCV MCH MCHC RDW Std Deviation Plt Count Neut % (Auto) Lymph % (Auto) [place] % (Auto) Eos % (Auto) Baso % (Auto) Neut # (Auto) Lymph # (Auto) [place] # (Auto) Eos # (Auto) Baso # (Auto) Immature Gran # (Auto) Absolute Nucleated RBC Immature Gran % Nucleated RBC % PT 11.5 11.7 INR 1.1 1.1 APTT 25.4 26.9 Puncture Site ABG pH ABG pCO2 ABG pO2 ABG HCO3 ABG O2 Saturation ABG Base Excess FiO2 Sodium Potassium Chloride Carbon Dioxide Anion Gap BUN Creatinine Estim Creat Clear Calc eGFR BUN/Creatinine Ratio Glucose Calculated Osmolality Calcium Corrected Calcium Total Bilirubin AST ALT Alkaline Phosphatase Troponin I 0.130 H* Total Protein Albumin Globulin Albumin/Globulin Ratio 02/16/24 02/17/24 02/17/24 17:34 04:14 04:15 WBC 9.7 RBC 3.38 L Hgb 8.9 L Hct 28.4 L MCV 84 MCH 26.3 MCHC 31.3 RDW Std Deviation 55.2 H Plt Count 215 Neut % (Auto) 76 Lymph % (Auto) 14 [place] % (Auto) 9 Eos % (Auto) 0 Baso % (Auto) 0 Neut # (Auto) 7.4 Lymph # (Auto) 1.3 [place] # (Auto) 0.9 H Eos # (Auto) 0.0 Baso # (Auto) 0.0 Immature Gran # (Auto) 0.05 H Absolute Nucleated RBC 0.00 Immature Gran % 1 H Nucleated RBC % 0 PT INR APTT Puncture Site Right Brachial ABG pH 7.41 ABG pCO2 38 ABG pO2 93 D ABG HCO3 24 ABG O2 Saturation 98 ABG Base Excess 0 FiO2 30 Sodium 138 Potassium 4.8 Chloride 106 Carbon Dioxide 25.1 Anion Gap 7 BUN 25 H Creatinine 0.9 Estim Creat Clear Calc 58.3 L eGFR > 60 BUN/Creatinine Ratio 28 H Glucose 168 H D Calculated Osmolality 284 Calcium 7.7 L Corrected Calcium 8.5 Total Bilirubin 0.4 AST 52 H ALT 31 Alkaline Phosphatase 74 Troponin I 0.107 H* Total Protein 5.5 L Albumin 3.0 L Globulin 2.5 Albumin/Globulin Ratio 1.2 ABG Interpretation ABG results: 02/15/24 02/16/24 02/16/24 22:46 00:31 04:50 ABG pH 7.20 L 7.23 L 7.34 L D ABG pCO2 51 H 52 H 41 D ABG pO2 248 H 90 D 141 H D ABG HCO3 20 22 22 ABG O2 Saturation 101 H 96 100 H ABG Base Excess -8 L -6 L -3 02/17/24 04:15 ABG pH 7.41 ABG pCO2 38 ABG pO2 93 D ABG HCO3 24 ABG O2 Saturation 98 ABG Base Excess 0 Assessment & Plan A&P Narrative still in afib rate around 100 conitnue digoxin /metoprolol consider anticoagulation Time Spent With Patient Time: Total time spent is greater than 50% in coordination of care (as documented) at patient's floor/unit and/or counseling patient:
--- NOTE | 2024-02-17 09:00 | XR_ITS ---
Examination: AP chest single view Technique one AP portable semiupright chest single view Exam date and time: February 17, 2024 0543 hrs. Comparison February 16, 2024 Indications: Hypoxic respiratory failure, history right chest tube, reposition right chest tube today, hypoxic respiratory failure postintubation Findings: Right chest tube is now in good position, advanced compared to the prior study Soft tissue air lower lateral chest wall on the right Right apical lateral pneumothorax, less than 10% Endotracheal tube tip 5.3 cm above anne Right subclavian central line tip SVC satisfactory position Mild enlargement cardiac contour Extensive bilateral lung opacity with prominent cardiac contour Orogastric tube in the stomach, the tip is below the level of the film Impression: [id number] heart failure Consider superimposed bilateral pneumonia Right chest tube satisfactory position Right apical lateral pneumothorax less than 10%
[2024-02-17] MEDS: LIDOCAINE 5% 1 PATCH TOP (10:39)
--- NOTE | 2024-02-17 10:44 | PC.SS ---
Update: Patient has been extubated today, 02-17-24. Patient transitioned to nasal cannula, 2L.
--- NOTE | 2024-02-17 10:49 | PC.SS ---
SITE SUPERVISING TECHNICAL OPERATOR conducted phone contact with the patient?s partner, Elgin Vance to conduct assessment. Patient currently admitted to ICU. Patient resides with partner, but prior to admission was staying with friend. Patient utilizes a wheelchair to assist with mobility. Patient does not utilize oxygen at home. Patient possesses ability to complete ADL?s independently. Patient?s medical surrogate decision maker is partner, Elgin Vance. Patient?s PCP is Dr. Amaya [facility]. Patient does not possess specialty providers. Patient utilizes [facility] for medication services. services executive will discuss discharge needs at an appropriate future time. No further intervention required at this time, pediatric social worker will be available to address any further concerns. Next of Kin: Elgin Vance D/C Plan: Pending
--- NOTE | 2024-02-17 10:53 | PC.SS ---
INTERNAL CONTROL MANAGER conducted phone contact with the patient?s partner, Elgin Vance to conduct assessment. Patient currently admitted to ICU. Patient resides with partner, but prior to admission was staying with friend. Patient utilizes a wheelchair to assist with mobility. Patient does not utilize oxygen at home. Patient possesses ability to complete ADL?s independently. Patient?s medical surrogate decision maker is partner, Elgin Vance. Patient utilizes [facility] for PCP services. Patient?s housekeeping and laundry team leader is Dr. Harmon. Patient utilizes [facility] for medication services. food and nutrition services supervisor will discuss discharge needs at an appropriate future time. No further intervention required at this time, manager social work will be available to address any further concerns. Next of Kin: Elgin Vance D/C Plan: Pending
--- NOTE | 2024-02-17 13:16 | ESPR_ITS ---
<Statement entered by Robert Farfan MD - 02/18/24 07:45> Senior Resident Attestation: I supervised/discussed management plan with technical intern physician Dr. Boles, and was involved in the care of this patient. I personally saw and examined the patient and discussed the assessment and plan with the entire medicine team, including my attending. I agree with the assessment and plan as documented. Patient's care was discussed with attending physician, Dr. Pavon. Robert Farfan MD PGY-2. Documentation for date of: 02/17/24 Subjective Subjective Interval history: 02/15: Patient seen and examined at beside. No acute events overnight. Patient remains sedated and mechanically ventilated. Will decrease propofol and fentanyl and reassess responsiveness for possible SBT tomorow. Chest tube still in place unclamped with approx 45cc fluid drained. Repeat CXR to monitor resolution of pneumothorax. Dr. Prabhakar was consulted due to patient's new onset A-fib with RVR. Will complete diltiazem drip and start patient on IV digoxin 0.25mg daily for RR control. Increase metoprolol to 50 mg BID as part of GDMT/antirhythmic. Heparin bridge tomorrow if patient continues to remain off Eliquis. WBCs down trended 10.8, sodium 132, potassium downtrending to 5.2, creatinine down trended 0.9. ABG pH 7.34, pCO2 41, pO2 141 FiO2 50. Ventilator settings tidal volume 400, respiratory rate 20, PEEP 5, FiO2 30. 02/16: Patient seen and examined at beside. No acute events overnight. Patient was completely weaned off of propofol and passed SBT and extubated today. She complains of chest tube related right side chest pain 08/17. Started 2mg morphine q4hr for pain control. Completed diltiazem drip and currently on digoxin 0.25 mg for A-fib with addition of diltiazem 30 mg p.o. every 6 hours and started amiodarone drip. Patient remains in A-fib with rate 140?150s. Will hold off heparin bridge for now. INR 1.1. Echo findings normal LV size. Mild systolic dysfunction. Mild global hypokinesis. Estimated EF 40-45%. Continue with metoprolol 50 mg twice daily. Repeat chest x-ray today shows right pneumothorax less than 10%. Chest tube in place, unclamped, no drainage from insertion site. Bubbling noticed in water seal. Continue suctioning and plan to clamp tube with possible removal tomorrow. IOs -837cc. Sepsis has resolved. Continue vanc/zosyn for healthcare associated PNA. 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, open wound with granulation tissue noted Neuro: grossly intact Objective Labs 02/18/24 04:05 02/18/24 04:05 Labs: Laboratory Results - last 24 hr 02/16/24 02/17/24 02/17/24 17:34 04:14 04:15 WBC 9.7 RBC 3.38 L Hgb 8.9 L Hct 28.4 L MCV 84 MCH 26.3 MCHC 31.3 RDW Std Deviation 55.2 H Plt Count 215 Neut % (Auto) 76 Lymph % (Auto) 14 [place] % (Auto) 9 Eos % (Auto) 0 Baso % (Auto) 0 Neut # (Auto) 7.4 Lymph # (Auto) 1.3 [place] # (Auto) 0.9 H Eos # (Auto) 0.0 Baso # (Auto) 0.0 Immature Gran # (Auto) 0.05 H Absolute Nucleated RBC 0.00 Immature Gran % 1 H Nucleated RBC % 0 Puncture Site Right Brachial ABG pH 7.41 ABG pCO2 38 ABG pO2 93 D ABG HCO3 24 ABG O2 Saturation 98 ABG Base Excess 0 FiO2 30 Sodium 138 Potassium 4.8 Chloride 106 Carbon Dioxide 25.1 Anion Gap 7 BUN 25 H Creatinine 0.9 Estim Creat Clear Calc 58.3 L eGFR > 60 BUN/Creatinine Ratio 28 H Glucose 168 H D Calculated Osmolality 284 Calcium 7.7 L Corrected Calcium 8.5 Total Bilirubin 0.4 AST 52 H ALT 31 Alkaline Phosphatase 74 Troponin I 0.107 H* Total Protein 5.5 L Albumin 3.0 L Globulin 2.5 Albumin/Globulin Ratio 1.2 ABG Interpretation ABG results: 02/15/24 02/16/24 02/16/24 22:46 00:31 04:50 ABG pH 7.20 L 7.23 L 7.34 L D ABG pCO2 51 H 52 H 41 D ABG pO2 248 H 90 D 141 H D ABG HCO3 20 22 22 ABG O2 Saturation 101 H 96 100 H ABG Base Excess -8 L -6 L -3 02/17/24 04:15 ABG pH 7.41 ABG pCO2 38 ABG pO2 93 D ABG HCO3 24 ABG O2 Saturation 98 ABG Base Excess 0 Quality Measures Quality Measures sepsis Current suspected stage: ruled out Possible source: genitourinary and other Blood cultures ordered: yes Antibiotic ordered: Yes Advance care planning discussed with:: patient Assessment & Plan Assessment Current Active Medications: Generic Name Dose Route Start Last Admin Trade Name Freq PRN Reason Stop Dose Admin Acetaminophen 650 mg 02/16/24 01:28 Acetaminophen 325 Mg Tablet PO 03/17/24 01:27 Q4HR PRN PAIN SCALE 1-3 (mild Acetaminophen 650 mg 02/16/24 01:28 Acetaminophen Supp 650 Mg Supp TN 03/17/24 01:27 Q4HR PRN PAIN SCALE 1-3 (mild Acetaminophen 650 mg 02/17/24 10:18 Acetaminophen 325 Mg Tablet PO 03/18/24 10:17 Q4HR PRN Fever >101 Albuterol 2.5 mg 02/16/24 01:44 Albuterol Rt 2.5 Mg/0.5 Ml Nebu INH 03/17/24 01:43 Q2H PRN WHEEZING Albuterol/Ipratropium 3 ml 02/16/24 03:00 02/17/24 10:27 Albuterol/Ipratropium (Duoneb) Rt Zahida 3 Ml Nebu INH 03/17/24 02:59 3 ml Q4HRRT BHANU Administration Dextrose 50 ml 02/16/24 01:54 Dextrose 50%-Water Inj 50 Ml Syringe IV 03/17/24 01:53 Q15MIN PRN BG <50 OR BG <70 & pt unresponsive Dextrose 25 ml 02/16/24 01:54 Dextrose 50%-Water Inj 50 Ml Syringe IV 03/17/24 01:53 Q15MIN PRN BG 50-70 responsive npo pt Digoxin 0.25 mg 02/16/24 15:15 02/17/24 08:28 Digoxin Inj 0.25 Mg/Ml Amp 2 Ml IVP 03/17/24 15:14 0.25 mg QDAY BHANU Administration Glucagon 1 mg 02/16/24 01:54 Glucagon Inj 1 Mg Vial IM Q15MIN PRN BG <70, and no IV access Propofol 1,000 mg in 100 mls @ 1.932 mls/hr 02/15/24 21:57 02/17/24 08:00 Diprivan Ivpb IV 03/16/24 21:56 0 mcg/kg/min .Q24H PRN 0 mls/hr PER PROTOCOL Titration Protocol 5 MCG/KG/MIN Piperacillin/Tazobactam/Dextrose 3.375 gm in 50 mls @ 12.5 mls/hr 02/16/24 06:00 02/17/24 11:35 Zosyn IV 02/23/24 01:50 Infused Q8HR BHANU Infusion Vancomycin HCl 250 mls @ 120 mls/hr 02/16/24 22:00 02/16/24 21:26 Vancomycin/Water 1250 Mg Ivpb IV 02/23/24 21:59 120 mls/hr QPM@2200 BHANU Administration Protocol Dexmedetomidine/Sodium Chloride 200 mcg in 50 mls @ 3.445 mls/hr 02/16/24 17:57 02/17/24 11:00 Precedex Ivpb IV 03/17/24 17:56 0 mcg/kg/hr .[id number] PRN 0 mls/hr Per PROTOCOL Titration Protocol 0.2 MCG/KG/HR Insulin Human Lispro 0 unit 02/17/24 12:00 02/17/24 11:09 Insulin Lispro (Admelog) 1 Unit/0.01 Ml Unit SC 03/18/24 11:59 Not Given Q6HR BHANU Protocol Levothyroxine Sodium 112 mcg 02/16/24 06:00 02/17/24 05:24 Levothyroxine Sodium 112 Mcg Tablet GT 03/17/24 05:59 112 mcg ACBR BHANU Administration Methylprednisolone Sodium Succinate 40 mg 02/17/24 09:00 02/17/24 08:27 Methylprednisolone Sod Succ 40 Mg Vial IVP 02/24/24 08:59 40 mg QDAY BHANU Administration Metoprolol Tartrate 50 mg 02/16/24 10:45 02/17/24 08:27 Metoprolol Tartrate 25 Mg Tablet PO 03/17/24 10:44 50 mg BID BHANU Administration Pantoprazole Sodium 40 mg 02/16/24 09:00 02/17/24 08:28 Pantoprazole 40 Mg Tablet PO 03/17/24 08:59 40 mg QDAY BHANU Administration Pharmacy Consult 1 each 02/16/24 09:00 Pharmacy Renal Dose Adjustment 1 Ea XX 03/17/24 08:59 QDAY PRN PROTOCOL Pharmacy Consult 1 each 02/16/24 01:50 Vancomycin Pharmacy To Dose 1 Each Each IV 03/17/24 01:49 QDAY PRN PROTOCOL Sodium Chloride 3 ml 02/16/24 01:44 Sodium Chloride Rt Zahida 0.9% 3 Ml Nebu INH 03/17/24 01:43 PRN PRN SOLN Plan 63 yr female presented to ED after experiencing shortness of breath. Patient was eventually intubated and put on mechanical ventilator after pneumothorax developed while attempting subclavian line. Admitted for treatment of pneumothorax and management of new onset A-fib RVR. Neurological # Extubated Patient had required emergent intubation due to pneumothorax. Intubated on 02/15. Patient weaned off sedatives, passed SBT on 02/16 and successfully extubated. Cardiology #Atrial fibrillation with RVR Patient presented with atrial fibrillation with a pulse rate of 150's. Differential diagnoses include infection, anemia, toxins/thyroid/drugs, electrolytes/elevated blood pressure, sepsis/sleep apnea/sick sinus syndrome. CTA ruled out PE. This likely cause is drug induced as patient recently used methaphetamine as evidenced on Utox. Patient had a chest tube with recent bleeding as a contraindication for anticoagulation. Patient is currently hemodynamically stable and rate is controlled. [id number] = 6 points indicating 9.7% risk of embolism per year. ? completed Diltiazem drip for rate control on 02/15 -continue IV dig 0.25mg daily -Cardiology recommendations start patient on diltiazem 30 mg p.o. every 6 hours for rate control (02/16) -start amiodarone drip (02/16) ? Anticoagulation: Will temporarily HOLD home anticoagulation (Eliquis 2.5 mg PO BID) in setting of chest tube #Possible CHF Exacerbation Patient presented with symptoms of new onset worsening SOB. 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 DM2, hypertension. BNP: 539 CXR: evidence of pulmonary vascular congestion Last echo showed 35-30% EF in 2018. NYHA Class II-III -Dr. Prabhakar consulted -echo 02/15 Normal LV size. Mild systolic dysfunction. Mild global hypokinesis. Estimated EF 40-45% -daily weights -strict INOs -low sodium diet -restrict fluid to 1500mL -keep potassium >4, mag >2 -daily CBC, CMP -hold off Lasix until AMELIA improved Pulmonary #AHRF 2/2 apical pneumothorax-resolving vs #Healthcare associated pneumonia vs #Meth induced CHF exacerbation 02/16 CXR right pneumothorax less than 10%. - Acid/base ABG pH 7.41, pCO2 38, pO2 93, FiO2 30 -echo as noted above -Leave chest tube unclamped. Clamp if no leaking present and remove chest tube tomorrow -repeat CXR for resolution -vanc/zosyn for PNA #Hx COPD Increased lung volume noticed on chest x-ray. -DuoNeb 3 mL every 4 hours and methylprednisone 40 g every 6 hours Gastrointestinal no active problems Renal: Stable; BUN/CR: 23 and 1.2 on admission #AMELIA-resolved Most like pre renal in setting of decreased perfusion/decreased CO due to underlying arrhythmia and history of CHF --maintenance fluids -avoid nephrotoxic agents -daily CMP #Hyperkalemia resolving Potassium:5.4-->5.2-->4.8 Patient received IVF resuscitation with normal saline Will trend with repeat AM CMP Endocrine #Hypothyroidism TSH: 11.12, Free T4: 0.77 Weight based dosing based on [place] body weight 1.6 mcg/kg 192 -continue levothyroxine at 112 mcg #History of Type II Diabetes Mellitus - Hold patient's home Diabetes Medications - Patient started on Insulin Sliding scale - Q6hr accucheks - Follow up QAM CMP glucose level and Fingerstick Hematology #Normocytic Anemia H/H on admission: 10.0/32.0%; MCV: 85 DDX: acute blood loss, hemolysis, chronic inflammation Iron: 16, TIBC: 281, Iron saturation: 5, Ferritin: 96 MCV 85 Infectious Disease #Sepsis secondary to healthcare associated pneumonia Patient met SIRS criteria (WBC 13.4, Tachycardia, tachypnea and Temp of 102) with suspected source of Pneumonia as evidenced on Chest/Abdomen/Pelvis CT triggering a sepsis alert. Patient received 30 cc/kg and IV antibiotics doxycyline and Zosyn in the ED. Lactic Acid: 4.22, Procalcitonin 0.09, LDH 453 -Blood Cultures: preliminary neg -Urine culture: Pending -MRSA nasal swab: Pending -C.U.R.B. 65 score: 2 points; Moderate risk group: 6.8% 30-day mortality. Antibiotic regimen: Patient started on Vancoycin and Zosyn (02/15-) Skin wound care consulted for right toe wound Health maintenance: Dispo: extubated 02/16, sepsis resolving 2/2 HAP, DVT prophylaxis:SCDs CODE STATUS: Full code Lines: right subclavian central line (02/16/2024) PIV: 20 guage right AC fossa (02/16/2024) Zhou removed The patient's management plan was discussed with my attending physician Dr. Pavon and senior Dr. Farfan. Kaitlynn Boles, PGY-1 Attending Provider Attestation/Addendum Patient seen and examined with above resident, Kaitlynn Boles MD. I agree with the findings, assessment, and plan of care as documented except for any differences below. Patient continues to show improvement and was successfully weaned off mechanical ventilation this morning. Continue to monitor throughout the day with intermittent episodes of RVR. Cardiology was contacted and continued digoxin along with metoprolol, suggested addition of low-dose diltiazem to which the patient responded well. Remains hemodynamically stable and mentation continues to clear with eventual ability to pass swallow evaluation and tolerating p.o. diet. Given patient's continued improvement patient was deemed a candidate for transfer to telemetry for ongoing management prior to discharge. Patient will continue on steroids and DuoNebs to optimize underlying COPD, methylprednisolone drop to once daily due to association of steroids and poor wound healing including persistence of pneumothorax. Patient does have a small pneumo but this is likely because the chest tube is not communicating with the apical portion where the area is now trapped as she is upright. Will plan to transition to waterseal tomorrow and should the patient remained stable, will potentially remove chest tube as it was associated with postprocedural complication. Patient remains on empiric antibiotic regimen which will narrow to ceftriaxone to cover community-acquired organisms that she does not have significant risk factors for healthcare associated infection. Patient and family updated at bedside on plan of care. Complaining of some pain and she was adequately treated allowing her to have full expansion. Mobilize as tolerated and use incentive spirometer. Total critical care time I personally spent 45 minutes for review of physiologic parameters, directing plan of care throughout the day, coordination of care with other specialists, and counseling patient and her family at bedside. This is exclusive of time spent teaching housestaff or performing any separate billable procedures. Patient continued require critical care services for acute hypoxic respiratory failure secondary to COPD exacerbation and possible community-acquired pneumonia with iatrogenic pneumothorax post central line placement. Patient continues to be at risk for further morbidity and mortality warranting management and close follow-up only available in the intensive care unit.
--- NOTE | 2024-02-17 13:18 | PC.SS ---
TRANSPORTATION DEPARTMENT HEAD met with patient and partner, Elginjacqueline Vance; at bedside. Patient able to verbally request need for rollating walker and bedside commode. No preferred vendor identified. Patient is receptive to home health if recommended. TRANSPORTATION DEPARTMENT HEAD informed patient that physical therapy evaluation will be pending. Discussed possibility of SNF recommendation. Patient receptive to short term. Patient had previously been at [facility]. Patient is currently aligned with outpatient wound care services.
[2024-02-17] MEDS: MORPHINE SULF INJ 10 MG/ML VIAL 2 MG IVP ×3 (13:57→22:30)
--- NOTE | 2024-02-17 15:13 | PCS.ST ---
Swallow Evaluation completed. See report for details. Recommend Dysphagia 3/Reg liquids.
--- NOTE | 2024-02-17 15:32 | PD.RESEVENT ---
Documentation for date of: 02/17/24 Event Note Event Note: Received signout from the ICU 63-year-old lady with a past medical history significant for Hypertension, hyperlipidemia, IDDM, COPD, CHF, atrial fibrillation, DFU secondary to peripheral arterial disease status post debridement, history of femoral endarterectomy who present from SNF due to acute onset SOB. On arrival patient was found to have A-fib with RVR with rate in the 200s, tachypneic. A subclavian central line was attempted however due to patient's movements right apical pneumothorax developed. Which required the patient to have chest tube placed and be intubated and admitted to the ICU. Patient was extubated and will be downgraded to the floors currently on undergoing atrial fibrillation with RVR management diltiazem and digoxin, chest tube will be managed by ICU and possibly discontinue tomorrow. Hospitalist team aware and will resume care tomorrow 02/18/2024. Zeyad Amaya MD PGY-1
--- NOTE | 2024-02-17 15:49 | XR_ITS ---
Examination: AP chest single view Technique one AP portable upright chest single view Exam date and time: February 17, 2024 1605 hours Comparison February 17, 2024 0545 hours INDICATIONS: Chest film February 17, 2024 0545 hours right pneumothorax less than 10% FINDINGS: Right chest tube satisfactory position Again noted right apical pneumothorax less than 10% Right subclavian central line tip satisfactory position The patient has been extubated Cardiac contour is enlarged with prominent vascular congestion Consider superimposed bilateral pneumonia IMPRESSION: Stable position right chest tube Stable small right apical pneumothorax
[2024-02-17] MEDS: DILTIAZEM 30 MG TABLET PO (16:08)
[2024-02-17] MEDS: INSULIN LISPRO (AdmeLOG) 1 UNIT/0.01 ML UNIT SC (17:07)
[2024-02-17] MEDS: AMIODARONE 150 MG IVPB 150 MG/100 ML BAG 600 MG IV (18:03)
[2024-02-17] MEDS: AMIODARONE 360 MG IVPB 360 MG/200 ML BAG 33.333 MG IV (18:23)
[2024-02-17] MEDS: MELATONIN 3 MG TABLET 5 MG PO (22:29)
[2024-02-17] MEDS: VANCOMYCIN/WATER 1250 MG IVPB 250 ML 120 MG IV (22:30)
[2024-02-18] VITALS (74 sets, daily range): BP systolic 147–188; BP diastolic 75–131; PULSE 77–122; RESP 14–41; TEMP 35.9–36.5; O2SAT 87–100; BMI 25.1; BMI 12.0
[2024-02-18] MEDS: AMIODARONE 360 MG IVPB 360 MG/200 ML BAG 16.667 MG IV ×2 (00:17→11:49)
[2024-02-18] MEDS: DILTIAZEM 30 MG TABLET PO ×5 (00:17→23:04)
[2024-02-18] MEDS: INSULIN LISPRO (AdmeLOG) 1 UNIT/0.01 ML UNIT SC ×5 (00:51→21:56)
[2024-02-18] MEDS: ALBUTEROL/IPRATROPIUM (Duoneb) RT SOL 3 ML NEBU INH ×3 (02:45→10:45)
[2024-02-18] MEDS: MORPHINE SULF INJ 10 MG/ML VIAL 2 MG IVP ×5 (02:51→21:15)
[2024-02-18] MEDS: HYDROcodone/APAP 5/325 TABLET 1 TAB PO (04:35)
[2024-02-18 04:45] LABS: Basophils % (Auto) 0 % (0-2.5); Eosinophils % (Auto) 0 % (0-10); Hematocrit 28.8 % (36.0-46.0); Hemoglobin 9.1 g/dL (12.0-16.0); Immature Granulocytes % (Auto) 1 % (0-0); Immature Granulocytes Auto 0.08 Thou/mm3 (0.00-0.00); Lymphocytes # (Auto) 2.1 Thou/mm3 (1.0-4.8); Lymphocytes % (Auto) 15 % (10-50); Mean Corpuscular HGB Conc 31.6 g/dl (31.0-37.0); Mean Corpuscular Hemoglobin 26.5 pg (25.0-35.0); Mean Corpuscular Volume 84 fL (80-100); Monocytes # (Auto) 1.6 Thou/mm3 (0.0-0.8); Monocytes % (Auto) 11 % (0-12); Neutrophils # (Auto) 10.5 Thou/mm3 (1.8-7.7); Neutrophils % (Auto) 73 % (37-80); Nucleated Red Blood Cell % 0 /100 WBC (0); Platelet Count 264 Thou/mm3 (140-440); RDW Standard Deviation 55.5 fL (36.4-46.3); Red Blood Count 3.44 Miln/mm3 (4.00-5.20); White Blood Count 14.3 Thou/mm3 (3.6-11.0)
[2024-02-18] MEDS: PIPER/TAZO 3.375 GM 3.375 GM/50 ML BAG IV (05:03)
[2024-02-18] MEDS: LEVOTHYROXINE SODIUM 112 MCG TABLET GT (05:03)
[2024-02-18 05:12] LABS: Alanine Aminotransferase 42 U/L (10-49); Albumin, Serum 3.5 gm/dL (3.4-4.8); Albumin/Globulin Ratio 1.2 (1.2-2.2); Alkaline Phosphatase 72 U/L (46-116); Anion Gap 7 (7-16); Aspartate Amino Transferase 65 U/L (0-34); BUN/Creatinine Ratio 34 Ratio (12-20); Bilirubin,Total 0.3 mg/dL (0.3-1.2); Blood Urea Nitrogen 27 mg/dL (9-23); Calcium 8.1 mg/dL (8.3-10.6); Calcium (Corrected) 8.5 mg/dL (8.5-10.1); Carbon Dioxide 25.6 mMol/L (20.0-31.0); Chloride 104 mMol/L (98-107); Creatinine (Component) 0.8 mg/dL (0.6-1.3); Estimated Creatinine Clearance 65.6 mL/min (>60); Globulin 2.9 gm/dL (2.3-3.5); Glucose 152 mg/dL (74-106); Osmolality,Calculated 281 (275-295); Potassium 3.6 mMol/L (3.4-5.1); Sodium 137 mMol/L (136-145); Total Protein 6.4 gm/dL (5.7-8.2); eGFR > 60 See Note
--- NOTE | 2024-02-18 05:14 | EKG_ITS ---
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
[2024-02-18 08:36] LABS: Magnesium 1.9 mg/dL (1.6-2.6)
[2024-02-18] MEDS: METOPROLOL TARTRATE 25 MG TABLET 50 MG PO ×2 (09:05→21:56)
[2024-02-18] MEDS: DIGOXIN INJ 0.25 MG/ML AMP 2 ML IVP (09:05)
[2024-02-18] MEDS: PANTOPRAZOLE 40 MG TABLET PO (09:06)
[2024-02-18] MEDS: Silvasorb Gel 45 ML TUBE TOP (09:06)
[2024-02-18] MEDS: cefTRIAXone/D5w 1gm IV premix 50 ML IV (11:32)
[2024-02-18] MEDS: AZITHROMYCIN 250 MG TABLET 500 MG PO (11:33)
--- NOTE | 2024-02-18 12:14 | PD.IMPROG ---
Documentation for date of: 02/18/24 Subjective Subjective Interval history: afib rate around 100 extubated continue cardizem /digoxin/ metoprolol on amiodarone drip echo EF 40-45 % Exam Vital Signs Temp Pulse Resp BP Pulse Ox O2 Del Method O2 Flow Rate 96.6 F L 102 H 16 179/101 H 99 Nasal Cannula 1 02/18/24 08:00 02/18/24 11:49 02/18/24 10:45 02/18/24 11:49 02/18/24 10:45 02/18/24 08:00 02/18/24 10:45 FiO2 85 02/17/24 16:00 Routine HEENT Exam Head: Present normocephalic and atraumatic Eye: Present EOMI and PERRL ENT: Present mucous membranes moist Routine Neck Exam Neck: Present supple and trachea midline Routine Respiratory Exam Respiratory: Present chest non-tender, lungs clear, normal breath sounds and no resp distress Routine Cardiovascular Exam Cardiovascular: Present RRR Routine Abdominal Exam Abdominal: Present soft and normoactive bowel sounds Routine Extremities Exam Extremities: Present full ROM Routine Skin Exam Skin: Present intact, dry and warm Routine Neurological Exam Neurological: Present alert, oriented X3 and CN II-XII intact Routine Psychiatric Exam Psychiatric: Present normal affect and normal thought process Objective Labs 02/18/24 04:05 02/18/24 04:05 Labs: Laboratory Results - last 24 hr 02/18/24 02/18/24 04:05 07:35 WBC 14.3 H D RBC 3.44 L Hgb 9.1 L Hct 28.8 L MCV 84 MCH 26.5 MCHC 31.6 RDW Std Deviation 55.5 H Plt Count 264 D Neut % (Auto) 73 Lymph % (Auto) 15 [place] % (Auto) 11 Eos % (Auto) 0 Baso % (Auto) 0 Neut # (Auto) 10.5 H Lymph # (Auto) 2.1 [place] # (Auto) 1.6 H Eos # (Auto) 0.0 Baso # (Auto) 0.0 Immature Gran # (Auto) 0.08 H Absolute Nucleated RBC 0.00 Immature Gran % 1 H Nucleated RBC % 0 Sodium 137 Potassium 3.6 D Chloride 104 Carbon Dioxide 25.6 Anion Gap 7 BUN 27 H Creatinine 0.8 Estim Creat Clear Calc 65.6 eGFR > 60 BUN/Creatinine Ratio 34 H Glucose 152 H Calculated Osmolality 281 Calcium 8.1 L Corrected Calcium 8.5 Magnesium 1.9 Total Bilirubin 0.3 AST 65 H ALT 42 Alkaline Phosphatase 72 Total Protein 6.4 Albumin 3.5 D Globulin 2.9 Albumin/Globulin Ratio 1.2 ABG Interpretation ABG results: 02/15/24 02/16/24 02/16/24 22:46 00:31 04:50 ABG pH 7.20 L 7.23 L 7.34 L D ABG pCO2 51 H 52 H 41 D ABG pO2 248 H 90 D 141 H D ABG HCO3 20 22 22 ABG O2 Saturation 101 H 96 100 H ABG Base Excess -8 L -6 L -3 02/17/24 04:15 ABG pH 7.41 ABG pCO2 38 ABG pO2 93 D ABG HCO3 24 ABG O2 Saturation 98 ABG Base Excess 0 Assessment & Plan A&P Narrative still in afib rate around 100 conitnue digoxin /metoprolol/ cardizem on amiodarone drip consider anticoagulation Time Spent With Patient Time: Total time spent is greater than 50% in coordination of care (as documented) at patient's floor/unit and/or counseling patient:
--- NOTE | 2024-02-18 13:04 | PD.RESPRO ---
Documentation for date of: 02/18/24 Subjective Subjective Interval history: Patient seen at bedside today. Still having significant amounts of dyspnea. Wheezing heard upon auscultation so we will continue with breathing treatments with lev albuterol and ipratropium. Continue with IV steroids for COPD exacerbation. Heart rate appears to be better controlled and will continue to monitor on diltiazem. [id number] of 6 so patient will require anticoagulation but will discuss with the patient in regards to risk versus benefit and shared decision making. Antibiotics changed to azithromycin and ceftriaxone for management of community-acquired pneumonia. Mild leukocytosis likely secondary to steroid use. 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, open wound with granulation tissue noted Neuro: grossly intact Objective Labs 02/19/24 04:47 02/19/24 04:47 Labs: Laboratory Results - last 24 hr 02/18/24 02/18/24 04:05 07:35 WBC 14.3 H D RBC 3.44 L Hgb 9.1 L Hct 28.8 L MCV 84 MCH 26.5 MCHC 31.6 RDW Std Deviation 55.5 H Plt Count 264 D Neut % (Auto) 73 Lymph % (Auto) 15 [place] % (Auto) 11 Eos % (Auto) 0 Baso % (Auto) 0 Neut # (Auto) 10.5 H Lymph # (Auto) 2.1 [place] # (Auto) 1.6 H Eos # (Auto) 0.0 Baso # (Auto) 0.0 Immature Gran # (Auto) 0.08 H Absolute Nucleated RBC 0.00 Immature Gran % 1 H Nucleated RBC % 0 Sodium 137 Potassium 3.6 D Chloride 104 Carbon Dioxide 25.6 Anion Gap 7 BUN 27 H Creatinine 0.8 Estim Creat Clear Calc 65.6 eGFR > 60 BUN/Creatinine Ratio 34 H Glucose 152 H Calculated Osmolality 281 Calcium 8.1 L Corrected Calcium 8.5 Magnesium 1.9 Total Bilirubin 0.3 AST 65 H ALT 42 Alkaline Phosphatase 72 Total Protein 6.4 Albumin 3.5 D Globulin 2.9 Albumin/Globulin Ratio 1.2 ABG Interpretation ABG results: 02/15/24 02/16/24 02/16/24 22:46 00:31 04:50 ABG pH 7.20 L 7.23 L 7.34 L D ABG pCO2 51 H 52 H 41 D ABG pO2 248 H 90 D 141 H D ABG HCO3 20 22 22 ABG O2 Saturation 101 H 96 100 H ABG Base Excess -8 L -6 L -3 02/17/24 04:15 ABG pH 7.41 ABG pCO2 38 ABG pO2 93 D ABG HCO3 24 ABG O2 Saturation 98 ABG Base Excess 0 Quality Measures Quality Measures sepsis Current suspected stage: ruled out Possible source: genitourinary and other Blood cultures ordered: yes Antibiotic ordered: Yes Advance care planning discussed with:: patient Assessment & Plan Assessment Current Active Medications: Generic Name Dose Route Start Last Admin Trade Name Freq PRN Reason Stop Dose Admin Acetaminophen 650 mg 02/17/24 10:18 Acetaminophen 325 Mg Tablet PO 03/18/24 10:17 Q4HR PRN Fever >101 Albuterol/Ipratropium 3 ml 02/16/24 03:00 02/18/24 10:45 Albuterol/Ipratropium (Duoneb) Rt Zahida 3 Ml Nebu INH 03/17/24 02:59 3 ml Q4HRRT BHANU Administration Azithromycin 250 mg 02/19/24 09:00 Azithromycin 250 Mg Tablet PO 02/26/24 08:59 QDAY BHANU Dextrose 50 ml 02/16/24 01:54 Dextrose 50%-Water Inj 50 Ml Syringe IV 03/17/24 01:53 Q15MIN PRN BG <50 OR BG <70 & pt unresponsive Dextrose 25 ml 02/16/24 01:54 Dextrose 50%-Water Inj 50 Ml Syringe IV 03/17/24 01:53 Q15MIN PRN BG 50-70 responsive npo pt Digoxin 0.25 mg 02/16/24 15:15 02/18/24 09:05 Digoxin Inj 0.25 Mg/Ml Amp 2 Ml IVP 03/17/24 15:14 0.25 mg QDAY BHANU Administration Diltiazem HCl 30 mg 02/17/24 16:05 02/18/24 11:47 Diltiazem 30 Mg Tablet PO 03/18/24 16:04 30 mg Q6HR BHANU Administration Glucagon 1 mg 02/16/24 01:54 Glucagon Inj 1 Mg Vial IM Q15MIN PRN BG <70, and no IV access Amiodarone HCl/Dextrose 360 mg in 200 mls @ 16.667 mls/hr 02/17/24 23:58 02/18/24 11:49 Nexterone Ivpb IV 02/18/24 23:57 16.667 mls/hr .Q12H BHANU Administration Ceftriaxone Sodium/Dextrose 50 mls @ 100 mls/hr 02/18/24 10:47 02/18/24 11:32 Rocephin/D5w 1gm Iv Premix IV 02/25/24 10:46 100 mls/hr QDAY BHANU Administration Insulin Human Lispro 0 unit 02/18/24 07:45 02/18/24 11:50 Insulin Lispro (Admelog) 1 Unit/0.01 Ml Unit SC 03/19/24 07:44 2 unit ACHS BHANU Administration Protocol Ipratropium [place] 0.5 mg 02/18/24 13:00 Ipratropium Rt 0.5 Mg/ 2.5 Ml Nebu INH 03/19/24 12:59 Q6HRRT BHANU Levalbuterol HCl 0.63 mg 02/18/24 13:00 Levalbuterol Rt 1.25 Mg/0.5 Ml Nebu INH 03/19/24 12:59 Q6HRRT BHANU Levothyroxine Sodium 112 mcg 02/16/24 06:00 02/18/24 05:03 Levothyroxine Sodium 112 Mcg Tablet GT 03/17/24 05:59 112 mcg ACBR BHANU Administration Methylprednisolone Sodium Succinate 40 mg 02/17/24 09:00 02/18/24 09:05 Methylprednisolone Sod Succ 40 Mg Vial IVP 02/24/24 08:59 40 mg QDAY BHANU Administration Metoprolol Tartrate 50 mg 02/16/24 10:45 02/18/24 09:05 Metoprolol Tartrate 25 Mg Tablet PO 03/17/24 10:44 50 mg BID BHANU Administration Morphine Sulfate 2 mg 02/17/24 13:44 02/18/24 11:31 Morphine Sulf Inj 10 Mg/Ml Vial IVP 02/22/24 13:43 2 mg Q4HR PRN Administration PAIN SCALE 4-6 (Moderate Pantoprazole Sodium 40 mg 02/16/24 09:00 02/18/24 09:06 Pantoprazole 40 Mg Tablet PO 03/17/24 08:59 40 mg QDAY BHANU Administration Pharmacy Consult 1 each 02/16/24 09:00 Pharmacy Renal Dose Adjustment 1 Ea XX 03/17/24 08:59 QDAY PRN PROTOCOL Sodium Chloride 3 ml 02/16/24 01:44 Sodium Chloride Rt Zahida 0.9% 3 Ml Nebu INH 03/17/24 01:43 PRN PRN SOLN Sodium Chloride 3 ml 02/18/24 10:44 Sodium Chloride Rt Zah[place] 0.9% 3 Ml Nebu INH 03/19/24 10:43 PRN PRN SOLN Plan 63 yr female presented to ED after experiencing shortness of breath. Patient was eventually intubated and put on mechanical ventilator after pneumothorax developed while attempting subclavian line. Admitted for treatment of pneumothorax and management of new onset A-fib RVR. #Atrial fibrillation with RVR Patient presented with atrial fibrillation with a pulse rate of 150's. Differential diagnoses include infection, anemia, toxins/thyroid/drugs, electrolytes/elevated blood pressure, sepsis/sleep apnea/sick sinus syndrome. CTA ruled out PE. This likely cause is drug induced as patient recently used methaphetamine as evidenced on Utox. Patient had a chest tube with recent bleeding as a contraindication for anticoagulation. Patient is currently hemodynamically stable and rate is controlled. [id number] = 6 points indicating 9.7% risk of embolism per year. Will have risk versus benefit conversation for shared medical decision making ? completed Diltiazem drip for rate control on 02/15 -continue IV dig 0.25mg daily -Cardiology recommendations start patient on diltiazem 30 mg p.o. every 6 hours for rate control (02/16) -start amiodarone drip (02/16) ? Anticoagulation: Will temporarily HOLD home anticoagulation (Eliquis 2.5 mg PO BID) in setting of chest tube #Possible CHF Exacerbation Patient presented with symptoms of new onset worsening SOB. 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 DM2, hypertension. BNP: 539 CXR: evidence of pulmonary vascular congestion Last echo showed 35-30% EF in 2019. NYHA Class II-III -Dr. Prabhakar consulted -echo 02/15 Normal LV size. Mild systolic dysfunction. Mild global hypokinesis. Estimated EF 40-45% -daily weights -strict INOs -low sodium diet -restrict fluid to 1500mL -keep potassium >4, mag >2 -daily CBC, CMP -hold off Lasix until AMELIA improved #AHRF 2/2 apical pneumothorax-resolving vs #Healthcare associated pneumonia vs #Meth induced CHF exacerbation 02/16 CXR right pneumothorax less than 10%. - Acid/base ABG pH 7.41, pCO2 38, pO2 93, FiO2 30 -echo as noted above -Leave chest tube unclamped. Clamp if no leaking present and remove chest tube tomorrow -repeat CXR for resolution -vanc/zosyn for PNA discontinued Antibiotic therapy transition to azithromycin and Rocephin #Hx COPD Increased lung volume noticed on chest x-ray. -DuoNeb 3 mL every 4 hours and methylprednisone 40 g every 6 hours ?DuoNebs discontinued and patient is on lev albuterol and ipratropium every 6 hourly #AMELIA-resolved Most like pre renal in setting of decreased perfusion/decreased CO due to underlying arrhythmia and history of CHF --maintenance fluids -avoid nephrotoxic agents -daily CMP #Hyperkalemia resolving Potassium:5.4-->5.2-->4.8 Patient received IVF resuscitation with normal saline Will trend with repeat AM CMP #Hypothyroidism TSH: 11.12, Free T4: 0.77 Weight based dosing based on Moran body weight 1.6 mcg/kg 192 -continue levothyroxine at 112 mcg #History of Type II Diabetes Mellitus - Hold patient's home Diabetes Medications - Patient started on Insulin Sliding scale - Q6hr accucheks - Follow up QAM CMP glucose level and Fingerstick #Normocytic Anemia H/H on admission: 10.0/32.0%; MCV: 85 DDX: acute blood loss, hemolysis, chronic inflammation Iron: 16, TIBC: 281, Iron saturation: 5, Ferritin: 96 MCV 85 #Sepsis secondary to healthcare associated pneumonia Patient met SIRS criteria (WBC 13.4, Tachycardia, tachypnea and Temp of 102) with suspected source of Pneumonia as evidenced on Chest/Abdomen/Pelvis CT triggering a sepsis alert. Patient received 30 cc/kg and IV antibiotics doxycyline and Zosyn in the ED. Lactic Acid: 4.22, Procalcitonin 0.09, LDH 453 -Blood Cultures: preliminary neg -Urine culture: Negative -MRSA nasal swab: Negative -C.U.R.B. 65 score: 2 points; Moderate risk group: 6.8% 30-day mortality. Antibiotic regimen: Patient started on Vancoycin and Zosyn (02/15-) wound care consulted for right toe wound Health maintenance: Dispo: extubated 02/16, sepsis resolving 2/2 HAP, DVT prophylaxis:SCDs CODE STATUS: Full code Lines: right subclavian central line (02/16/2024) PIV: 20 guage right AC fossa (02/16/2024) Zhou removed Plan of care discussed with supervising attending Dr. Vanesa Stratton M.D. PGY-3 Attending Provider Attestation/Addendum I reviewed labs, imaging, EKG, home medications and prior available records. Face to face evaluation was performed by me. I have personally examined the patient and discussed assessment and plan with the IM team. I reviewed the resident note and agree with the plan with exceptions as below. Acute hypoxic respiratory failure Atrial fibrillation with RVR COPD exacerbation Heart failure with EF of 40 to 45% Healthcare associated pneumonia Pneumothorax Right foot pain Wean off oxygen as tolerated Continue Cardizem p.o., digoxin and Coreg. Anticoagulation prior to discharge Continue Solu-Medrol and DuoNebs as needed Counseled the patient regarding the importance of smoking cessation Chest tube to be removed by ICU team status after Changed antibiotics to Rocephin and azithromycin based on the cultures Ordered foot x-ray for possible right foot osteomyelitis
--- NOTE | 2024-02-18 13:08 | PC.SS ---
SEASONAL DELIVERY DRIVER conducted bedside contact with the patient to address toxicology results indicting patient was positive for methamphetamine. Patient confirmed use. Per patient has engaged in sporadic use last 3 months. Patient informed SEASONAL DELIVERY DRIVER plan to cease use. Patient did not disclose how methamphetamine obtained. Patient informed SEASONAL DELIVERY DRIVER that choice of use is her own decision and has not been coerced in use. SEASONAL DELIVERY DRIVER offered community resources to the patient to assist with plan to cease use. Patient receptive to resources.
--- NOTE | 2024-02-18 13:18 | XR_ITS ---
Examination: AP chest single view TECHNIQUE: AP portable upright chest single view Exam date and time: February 18, 2024 1339 hours Comparison February 17, 2024 INDICATIONS: Status post chest tube placement on the right, history right apical pneumothorax FINDINGS: Right chest tube satisfactory position Right apical lateral pneumothorax, estimated 10% Mild enlargement cardiac contour Extensive interstitial disease Right subclavian central line tip satisfactory position Prominent vascular congestion IMPRESSION: Right chest tube stable and satisfactory position Right apical lateral pneumothorax estimated 10%
[2024-02-18] MEDS: IPRATROPIUM RT 0.5 MG/ 2.5 ML NEBU INH ×2 (13:47→19:11)
[2024-02-18] MEDS: LEVALBUTEROL RT 1.25 MG/0.5 ML NEBU 0.63 MG INH ×2 (13:47→19:11)
--- NOTE | 2024-02-18 14:36 | PC.SS ---
Update: Patient downgraded from ICU today.
--- NOTE | 2024-02-18 14:37 | PC.SS ---
Contact information for patient's friend, Marissakaty Flores .
--- NOTE | 2024-02-18 14:39 | XR_ITS ---
Examination: Foot, right, 3 views Technique: AP, oblique, lateral views foot, 3 views Date and time of exam: February 18, 2024 1454 hours INDICATIONS: History osteomyelitis status post amputation first metatarsal FINDINGS: Status post amputation at the level of the mid right first metatarsal Prominent osteopenia No kaiden cortical bone destruction No opaque foreign body IMPRESSION: No kaiden cortical bone destruction
--- NOTE | 2024-02-18 15:40 | PC.SS ---
SNF referral submitted on [facility], awaiting responses. No preferred SNF identified.
--- NOTE | 2024-02-18 15:40 | PC.SS ---
Authorization for SNF will be required. Awaiting PT note for submittal to SNF's.
--- NOTE | 2024-02-18 16:00 | XR_ITS ---
Examination: AP chest single view Technique one AP portable sitting chest single view Exam date and time: February 18, 2024 1407 hours Comparison February 18, 2024 1339 hours INDICATIONS: Status post chest tube placement on the right with pneumothorax, pneumonia this week on chest imaging FINDINGS: Right chest tube stable and satisfactory position Expansion right lung, stable small right apical lateral pneumothorax estimated 10% Bilateral parenchymal disease again noted Mild enlargement cardiac contour Right subclavian central line tip SVC satisfactory position IMPRESSION: Stable small right apical lateral pneumothorax
--- NOTE | 2024-02-18 17:53 | PC.NURSE ---
I contacted Dr. Hare regarding pt's blood pressure 180/115. I reported the pressure being elevated throughout the shift. Per Dr. hare he will review the chart and will order something.
[2024-02-18] MEDS: MORPHINE SULF INJ 10 MG/ML VIAL IVP (18:22)
[2024-02-18] MEDS: LABETALOL INJ 5 MG/ML VIAL 20 ML IVP (18:22)
[2024-02-18 21:58] LABS: Vancomycin,Trough 7.6 mcg/mL (5.0-10.0)
--- NOTE | 2024-02-18 22:36 | PD.EVENT ---
Documentation for date of: 02/18/24 Event Note Event Note: Chest tube placed on water seal this AM. Follow up chest film showed no significant change in size of right apical PTX. No air leak on bedside assessment. Patient with pain at site otherwise breathing comfortably. Clamped chest tube for 5 hours with repeat chest film showing no significant change. Chest tube removed at bedside uneventfully. Patient tolerated well. No new complaints on 1 hour follow up with stable vitals on serial monitoring. Remains physically in the ICU overnight for monitoring and will be transferred to telemetry when bed becomes available tomorrow AM. I remain available overnight for any issues should they arise. Signout given to ICU NF resident with plan of care in case of reaccumulation.
[2024-02-18] MEDS: guaiFENesin SYRUP 200 MG/10 ML UDC PO (23:05)
[2024-02-19] VITALS (24 sets, daily range): BP systolic 141–214; BP diastolic 70–129; PULSE 81–125; RESP 16–29; TEMP 36.2–36.8; O2SAT 94–100; BMI 25.2
[2024-02-19] MEDS: LEVALBUTEROL RT 1.25 MG/0.5 ML NEBU 0.63 MG INH ×2 (01:55→06:08)
[2024-02-19] MEDS: IPRATROPIUM RT 0.5 MG/ 2.5 ML NEBU INH ×4 (01:56→19:17)
[2024-02-19] MEDS: LABETALOL INJ 5 MG/ML VIAL 20 ML IVP (04:21)
[2024-02-19] MEDS: DILTIAZEM 30 MG TABLET PO ×4 (05:43→23:44)
[2024-02-19] MEDS: LEVOTHYROXINE SODIUM 112 MCG TABLET GT (05:43)
[2024-02-19 05:44] LABS: Basophils % (Auto) 0 % (0-2.5); Eosinophils % (Auto) 0 % (0-10); Hematocrit 30.9 % (36.0-46.0); Hemoglobin 9.8 g/dL (12.0-16.0); Immature Granulocytes % (Auto) 1 % (0-0); Immature Granulocytes Auto 0.07 Thou/mm3 (0.00-0.00); Lymphocytes % (Auto) 16 % (10-50); Mean Corpuscular HGB Conc 31.7 g/dl (31.0-37.0); Mean Corpuscular Hemoglobin 26.3 pg (25.0-35.0); Mean Corpuscular Volume 83 fL (80-100); Monocytes # (Auto) 1.2 Thou/mm3 (0.0-0.8); Monocytes % (Auto) 9 % (0-12); Neutrophils # (Auto) 9.3 Thou/mm3 (1.8-7.7); Neutrophils % (Auto) 74 % (37-80); Nucleated Red Blood Cell # 0.02 Thou/mm3 (0.00-0.00); Nucleated Red Blood Cell % 0 /100 WBC (0); Platelet Count 292 Thou/mm3 (140-440); RDW Standard Deviation 53.9 fL (36.4-46.3); Red Blood Count 3.73 Miln/mm3 (4.00-5.20); White Blood Count 12.5 Thou/mm3 (3.6-11.0)
[2024-02-19] MEDS: MORPHINE SULF INJ 10 MG/ML VIAL 2 MG IVP ×4 (05:47→21:58)
[2024-02-19 06:10] LABS: Alanine Aminotransferase 40 U/L (10-49); Albumin, Serum 3.7 gm/dL (3.4-4.8); Albumin/Globulin Ratio 1.2 (1.2-2.2); Alkaline Phosphatase 73 U/L (46-116); Anion Gap 7 (7-16); Aspartate Amino Transferase 44 U/L (0-34); BUN/Creatinine Ratio 31 Ratio (12-20); Bilirubin,Total 0.4 mg/dL (0.3-1.2); Blood Urea Nitrogen 25 mg/dL (9-23); Calcium 8.3 mg/dL (8.3-10.6); Calcium (Corrected) 8.5 mg/dL (8.5-10.1); Carbon Dioxide 26.8 mMol/L (20.0-31.0); Chloride 101 mMol/L (98-107); Creatinine (Component) 0.8 mg/dL (0.6-1.3); Estimated Creatinine Clearance 70.9 mL/min (>60); Glucose 171 mg/dL (74-106); Magnesium 1.9 mg/dL (1.6-2.6); Osmolality,Calculated 278 (275-295); Potassium 4.1 mMol/L (3.4-5.1); Sodium 135 mMol/L (136-145); Total Protein 6.7 gm/dL (5.7-8.2); eGFR > 60 See Note
[2024-02-19] MEDS: INSULIN LISPRO (AdmeLOG) 1 UNIT/0.01 ML UNIT SC ×4 (07:35→20:35)
--- NOTE | 2024-02-19 07:45 | XR_ITS ---
Examination: AP chest single view Technique one AP portable upright chest single view Exam date and time: February 19, 2024 0756 hrs. Comparison February 18, 2024 Indications: History difficulty breathing coughing congestion, pneumonia on chest imaging this week, history right chest tube, post chest tube removal today Findings: Status post removal right chest tube Tiny right apical pneumothorax less than 5% Right subclavian central line tip SVC Mild enlargement cardiac contour Prominent vascular congestion Interstitial opacity throughout the lungs Soft tissue air along the right lateral thoracic wall Prominent osteopenia Impression: Status post removal right chest tube Tiny right apical pneumothorax, less than 5%
[2024-02-19] MEDS: LOSARTAN POTASSIUM 25 MG TABLET PO (09:08)
[2024-02-19] MEDS: AZITHROMYCIN 250 MG TABLET PO (09:10)
[2024-02-19] MEDS: cefTRIAXone/D5w 1gm IV premix 50 ML IV (09:10)
[2024-02-19] MEDS: DIGOXIN INJ 0.25 MG/ML AMP 2 ML IVP (09:10)
[2024-02-19] MEDS: PANTOPRAZOLE 40 MG TABLET PO (09:10)
[2024-02-19] MEDS: Magnesium Sulfate 4 GM Ivpb 4 GM/50 ML BAG IV (09:10)
[2024-02-19] MEDS: Silvasorb Gel 45 ML TUBE TOP (09:15)
--- NOTE | 2024-02-19 10:57 | ESPR_ITS ---
Documentation for date of: 02/19/24 Subjective Subjective Interval history: no acute setbacks Critical Care Note Critical care time (min.): 0 Exam Vital Signs Temp Pulse Resp BP Pulse Ox O2 Del Method O2 Flow Rate 97.1 F 99 22 H 149/71 H 100 Nasal Cannula 1 02/19/24 04:02 02/19/24 09:10 02/19/24 06:10 02/19/24 09:10 02/19/24 06:10 02/19/24 04:02 02/19/24 06:10 FiO2 85 02/17/24 16:00 Narrative Exam GENERAL: sitting up in bed no acute distress HEENT: orally intubated, no epistaxis, dry mucous membranes, non icteric. atruamatic. RESPIRATORY: diminished bl bs - non laborious CARDIOVASCULAR: RRR, NL S1S2. No M/G/R. ABDOMEN: Soft non tender to palpation EXTREMITIES: 1+ peripheral pulses palpable, No significant edema. SKIN: warm dry intact. NEURO: mental status normal symmetric motor response to tactile stimuli. Physical Exam Completion Physical Exam Complete?: Yes Objective - Insurance Verifier Labs 02/19/24 04:47 02/19/24 04:47 Labs: Laboratory Results - last 24 hr 02/18/24 02/19/24 21:30 04:47 WBC 12.5 H RBC 3.73 L Hgb 9.8 L Hct 30.9 L MCV 83 MCH 26.3 MCHC 31.7 RDW Std Deviation 53.9 H Plt Count 292 Neut % (Auto) 74 Lymph % (Auto) 16 [place] % (Auto) 9 Eos % (Auto) 0 Baso % (Auto) 0 Neut # (Auto) 9.3 H Lymph # (Auto) 2.0 [place] # (Auto) 1.2 H Eos # (Auto) 0.0 Baso # (Auto) 0.0 Immature Gran # (Auto) 0.07 H Absolute Nucleated RBC 0.02 H Immature Gran % 1 H Nucleated RBC % 0 Sodium 135 L Potassium 4.1 D Chloride 101 Carbon Dioxide 26.8 Anion Gap 7 BUN 25 H Creatinine 0.8 Estim Creat Clear Calc 70.9 eGFR > 60 BUN/Creatinine Ratio 31 H Glucose 171 H Calculated Osmolality 278 Calcium 8.3 Corrected Calcium 8.5 Magnesium 1.9 Total Bilirubin 0.4 AST 44 H ALT 40 Alkaline Phosphatase 73 Total Protein 6.7 Albumin 3.7 Globulin 3.0 Albumin/Globulin Ratio 1.2 Vancomycin Trough 7.6 Assessment & Plan Problem List (1) Atrial fibrillation, rapid: Status: Acute (2) Respiratory failure: Status: Acute (3) Elevated troponin: Status: Acute (4) Congestive heart failure: Status: Acute (5) COPD (chronic obstructive pulmonary disease): Status: Acute Assessment and plan: transition to long acting medications (i.e. trelegy elipta or advair + spiriva) once on long acting inhaled triple therapy - transition duo neb to prn recommend stopping iv steroids and completing 5d course of prednisone 40mg Pneumothorax: minimal residual 5% - monitor on CXR and clinically no indication to replace chest tube no significant heavy lifting - nikolai against any airtravel / scubadiving x 3mo recommend removing CVC (6) Hypertension: Status: Acute (7) Diabetes: Status: Acute Provider Notation Provider Notation: Although this document has been carefully reviewed, there may still be some phonetic and other typographical errors. These errors are purely grammatical due to imperfections in the software program and should not be construed in any way to compromise the substance of the patient's medical care during this visit. Thank you for the opportunity and privilege in assisting you with this patient's care and management.
--- NOTE | 2024-02-19 11:31 | PD.RESPRO ---
Documentation for date of: 02/19/24 Subjective Subjective Interval history: Patient seen today at the bedside fine awake, alert, oriented x 3. No overnight events reported. Blood pressure and heart rate continues to remain elevated metoprolol was switched to carvedilol 6.25 mg twice daily. Started the patient on Eliquis 5 mg twice daily as [id number] score is 6. Resumed patient's Lasix 20 mg every morning as taken at home starting tomorrow. Per facilities plant engineer, Dr. Urbina will stop IV steroids and transition to p.o. prednisone 40 mg Exam Vital Signs Temp Pulse Resp BP Pulse Ox O2 Del Method O2 Flow Rate 97.1 F 99 22 H 149/71 H 100 Nasal Cannula 1 02/19/24 04:02 02/19/24 09:10 02/19/24 06:10 02/19/24 09:10 02/19/24 06:10 02/19/24 04:02 02/19/24 06:10 FiO2 85 02/17/24 16:00 Narrative Exam Physical Exam GENERAL: NAD, AAOx3 HEENT: Moist mucosa. Eyes open, symmetrical, & clear CARDIO: Heart irregularly irregular, no obvious murmurs PULM: No noted coughing/dyspnea, mild crackles bilaterally GI: Abdomen soft, nondistended, no pain on palpation. BSx4 SKIN/MSK/EXT: Right lower extremity first metatarsal amputation covered, no pain on palpation. Pedal pulses present B/L NEURO: AAOx3, no focal neuro deficits, able to move all 4 extremities Objective Labs 02/20/24 04:42 02/20/24 04:42 Labs: Laboratory Results - last 24 hr 02/18/24 02/19/24 21:30 04:47 WBC 12.5 H RBC 3.73 L Hgb 9.8 L Hct 30.9 L MCV 83 MCH 26.3 MCHC 31.7 RDW Std Deviation 53.9 H Plt Count 292 Neut % (Auto) 74 Lymph % (Auto) 16 [place] % (Auto) 9 Eos % (Auto) 0 Baso % (Auto) 0 Neut # (Auto) 9.3 H Lymph # (Auto) 2.0 [place] # (Auto) 1.2 H Eos # (Auto) 0.0 Baso # (Auto) 0.0 Immature Gran # (Auto) 0.07 H Absolute Nucleated RBC 0.02 H Immature Gran % 1 H Nucleated RBC % 0 Sodium 135 L Potassium 4.1 D Chloride 101 Carbon Dioxide 26.8 Anion Gap 7 BUN 25 H Creatinine 0.8 Estim Creat Clear Calc 70.9 eGFR > 60 BUN/Creatinine Ratio 31 H Glucose 171 H Calculated Osmolality 278 Calcium 8.3 Corrected Calcium 8.5 Magnesium 1.9 Total Bilirubin 0.4 AST 44 H ALT 40 Alkaline Phosphatase 73 Total Protein 6.7 Albumin 3.7 Globulin 3.0 Albumin/Globulin Ratio 1.2 Vancomycin Trough 7.6 ABG Interpretation ABG results: 02/15/24 02/16/24 02/16/24 22:46 00:31 04:50 ABG pH 7.20 L 7.23 L 7.34 L D ABG pCO2 51 H 52 H 41 D ABG pO2 248 H 90 D 141 H D ABG HCO3 20 22 22 ABG O2 Saturation 101 H 96 100 H ABG Base Excess -8 L -6 L -3 02/17/24 04:15 ABG pH 7.41 ABG pCO2 38 ABG pO2 93 D ABG HCO3 24 ABG O2 Saturation 98 ABG Base Excess 0 Quality Measures Quality Measures sepsis Current suspected stage: sepsis Possible source: genitourinary and other Blood cultures ordered: yes Antibiotic ordered: Yes Advance care planning discussed with:: patient Assessment & Plan Assessment Current Active Medications: Generic Name Dose Route Start Last Admin Trade Name Freq PRN Reason Stop Dose Admin Acetaminophen 650 mg 02/17/24 10:18 Acetaminophen 325 Mg Tablet PO 03/18/24 10:17 Q4HR PRN Fever >101 Albuterol/Ipratropium 3 ml 02/16/24 03:00 02/18/24 10:45 Albuterol/Ipratropium (Duoneb) Rt Zahida 3 Ml Nebu INH 03/17/24 02:59 3 ml Q4HRRT BHANU Administration Apixaban 2.5 mg 02/19/24 21:00 Apixaban 2.5 Mg Tablet PO 03/20/24 20:59 BID BHANU Azithromycin 250 mg 02/19/24 09:00 02/19/24 09:10 Azithromycin 250 Mg Tablet PO 02/26/24 08:59 250 mg QDAY BHANU Administration Carvedilol 6.25 mg 02/19/24 17:30 Carvedilol 3.125 Mg Tablet PO 03/20/24 17:29 BIDWM BHANU Dextrose 50 ml 02/16/24 01:54 Dextrose 50%-Water Inj 50 Ml Syringe IV 03/17/24 01:53 Q15MIN PRN BG <50 OR BG <70 & pt unresponsive Dextrose 25 ml 02/16/24 01:54 Dextrose 50%-Water Inj 50 Ml Syringe IV 03/17/24 01:53 Q15MIN PRN BG 50-70 responsive npo pt Digoxin 0.25 mg 02/16/24 15:15 02/19/24 09:10 Digoxin Inj 0.25 Mg/Ml Amp 2 Ml IVP 03/17/24 15:14 0.25 mg QDAY BHANU Administration Diltiazem HCl 30 mg 02/17/24 16:05 02/19/24 05:43 Diltiazem 30 Mg Tablet PO 03/18/24 16:04 30 mg Q6HR BHANU Administration Glucagon 1 mg 02/16/24 01:54 Glucagon Inj 1 Mg Vial IM Q15MIN PRN BG <70, and no IV access Guaifenesin 200 mg 02/18/24 22:40 02/18/24 23:05 Guaifenesin Syrup 200 Mg/10 Ml Udc PO 03/19/24 22:39 200 mg QID PRN Administration COUGH OR CONGESTION Protocol Ceftriaxone Sodium/Dextrose 50 mls @ 100 mls/hr 02/18/24 10:47 02/19/24 09:10 Rocephin/D5w 1gm Iv Premix IV 02/25/24 10:46 100 mls/hr QDAY BHANU Administration Insulin Human Lispro 0 unit 02/18/24 07:45 02/19/24 07:35 Insulin Lispro (Admelog) 1 Unit/0.01 Ml Unit SC 03/19/24 07:44 3 unit ACHS BHANU Administration Protocol Ipratropium [place] 0.5 mg 02/18/24 13:00 02/19/24 06:08 Ipratropium Rt 0.5 Mg/ 2.5 Ml Nebu INH 03/19/24 12:59 0.5 mg Q6HRRT BHANU Administration Levalbuterol HCl 0.63 mg 02/19/24 13:00 Levalbuterol Rt 0.63 Mg/3 Ml Nebu INH 03/20/24 12:59 Q6HRRT BHANU Levothyroxine Sodium 112 mcg 02/16/24 06:00 02/19/24 05:43 Levothyroxine Sodium 112 Mcg Tablet GT 03/17/24 05:59 112 mcg ACBR BHANU Administration Losartan Potassium 25 mg 02/19/24 09:00 02/19/24 09:08 Losartan Potassium 25 Mg Tablet PO 03/20/24 08:59 25 mg QDAY BHANU Administration Methylprednisolone Sodium Succinate 40 mg 02/17/24 09:00 02/19/24 09:10 Methylprednisolone Sod Succ 40 Mg Vial IVP 02/24/24 08:59 40 mg QDAY BHANU Administration Morphine Sulfate 2 mg 02/17/24 13:44 02/19/24 05:47 Morphine Sulf Inj 10 Mg/Ml Vial IVP 02/22/24 13:43 2 mg Q4HR PRN Administration PAIN SCALE 4-6 (Moderate Pantoprazole Sodium 40 mg 02/16/24 09:00 02/19/24 09:10 Pantoprazole 40 Mg Tablet PO 03/17/24 08:59 40 mg QDAY BHANU Administration Pharmacy Consult 1 each 02/16/24 09:00 Pharmacy Renal Dose Adjustment 1 Ea XX 03/17/24 08:59 QDAY PRN PROTOCOL Sodium Chloride 3 ml 02/18/24 10:44 Sodium Chloride Rt Zahida 0.9% 3 Ml Nebu INH 03/19/24 10:43 PRN PRN SOLN Plan 63 yr female presented to ED after experiencing shortness of breath. Patient was eventually intubated and put on mechanical ventilator after pneumothorax developed while attempting subclavian line. Admitted for treatment of pneumothorax and management of new onset A-fib RVR. #Atrial fibrillation with RVR Patient presented with atrial fibrillation with a pulse rate of 150's. Differential diagnoses include infection, anemia, toxins/thyroid/drugs, electrolytes/elevated blood pressure, sepsis/sleep apnea/sick sinus syndrome. CTA ruled out PE. This likely cause is drug induced as patient recently used methaphetamine as evidenced on Utox. Patient had a chest tube with recent bleeding as a contraindication for anticoagulation. Patient is currently hemodynamically stable and rate is controlled. [id number] = 6 points indicating 9.7% risk of embolism per year. Will have risk versus benefit conversation for shared medical decision making completed Diltiazem drip for rate control on 02/15 -continue IV dig 0.25mg daily -On diltiazem 30 mg p.o. every 6 hours -On carvedilol 6.25 mg twice daily -Cardiology recommendations start patient on diltiazem 30 mg p.o. every 6 hours for rate control (02/16) -Resumed Eliquis 5 mg p.o. twice daily #Possible CHF Exacerbation Patient presented with symptoms of new onset worsening SOB. 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 DM2, hypertension. BNP: 539 CXR: evidence of pulmonary vascular congestion Last echo showed 35-30% EF in 2018. NYHA Class II-III -Dr. Prabhakar consulted -echo 02/15 Normal LV size. Mild systolic dysfunction. Mild global hypokinesis. Estimated EF 40-45% -daily weights -strict INOs -low sodium diet -restrict fluid to 1500mL -keep potassium >4, mag >2 -daily CBC, CMP -Lasix 20 mg every morning resumed #AHRF 2/2 apical pneumothorax-resolving vs #Healthcare associated pneumonia vs #Meth induced CHF exacerbation 02/16 CXR right pneumothorax less than 10%. - Acid/base ABG pH 7.41, pCO2 38, pO2 93, FiO2 30 -echo as noted above -repeat CXR for resolution -On ceftriaxone and azithromycin #Hx COPD Increased lung volume noticed on chest x-ray. -On levalbuterol and ipratropium every 6 hourly -IV methylprednisolone transition to prednisone 40 mg daily as per pulmonology recommendations #AMELIA-resolved Most like pre renal in setting of decreased perfusion/decreased CO due to underlying arrhythmia and history of CHF -avoid nephrotoxic agents -daily CMP #Hyperkalemia-resolved Potassium:5.4-->5.2-->4.8 -Monitor at this time #Hypothyroidism TSH: 11.12, Free T4: 0.77 Weight based dosing based on [place] body weight 1.6 mcg/kg 192 -continue levothyroxine at 112 mcg #History of Type II Diabetes Mellitus - Hold patient's home Diabetes Medications - Patient started on Insulin Sliding scale - Q6hr accucheks - Follow up QAM CMP glucose level and Fingerstick #Normocytic Anemia H/H on admission: 10.0/32.0%; MCV: 85 DDX: acute blood loss, hemolysis, chronic inflammation Iron: 16, TIBC: 281, Iron saturation: 5, Ferritin: 96 MCV 85 #Sepsis secondary to healthcare associated pneumonia Patient met SIRS criteria (WBC 13.4, Tachycardia, tachypnea and Temp of 102) with suspected source of Pneumonia as evidenced on Chest/Abdomen/Pelvis CT triggering a sepsis alert. Patient received 30 cc/kg and IV antibiotics doxycyline and Zosyn in the ED. Lactic Acid: 4.22, Procalcitonin 0.09, LDH 453 Blood cultures negative in 48 hours, urine culture negative C.U.R.B. 65 score: 2 points; Moderate risk group: 6.8% 30-day mortality. -On vancomycin and Zosyn (02/15-) -Wound care for right toe wound Case discussed with my attending Dr. Vanesa Amaya MD PGY-1 Disposition: Telemetry however physically in ICU Fluids: None Feeding: Carb consistent Thrombo prophylaxis: SCDs Gastric Ulcer prophylaxis: Pantoprazole 40 mg IV daily CODE STATUS: Full code Attending Provider Attestation/Addendum I reviewed labs, imaging, EKG, home medications and prior available records. Face to face evaluation was performed by me. I have personally examined the patient and discussed assessment and plan with the IM team. I reviewed the resident note and agree with the plan with exceptions as below. Acute hypoxic respiratory failure Atrial fibrillation with RVR COPD exacerbation Heart failure with EF of 40 to 45% Healthcare associated pneumonia Pneumothorax Right foot pain Wean off oxygen as tolerated Continue Cardizem p.o., digoxin and Coreg. Anticoagulation prior to discharge Continue Solu-Medrol and DuoNebs as needed Counseled the patient regarding the importance of smoking cessation Chest tube was removed by the ICU team Changed antibiotics to Rocephin and azithromycin based on the cultures Ordered foot x-ray for possible right foot osteomyelitis: Showed no evidence. Continue wound care and follow-up with wound care/podiatry as outpatient PT recommended SNF. Discussed with social welfare administrator who is working on the placement
[2024-02-19] MEDS: LEVALBUTEROL RT 0.63 MG/3 ML NEBU INH ×2 (13:21→19:16)
[2024-02-19] MEDS: carVEDILOL 3.125 MG TABLET 6.25 MG PO ×2 (15:35→17:49)
--- NOTE | 2024-02-19 17:12 | PC.NURSE ---
Report given to HOSSEIN Angel.
[2024-02-19] MEDS: APIXABAN 2.5 MG TABLET 5 MG PO (20:33)
[2024-02-20] VITALS (18 sets, daily range): BP systolic 131–167; BP diastolic 69–100; PULSE 70–110; RESP 18–97; TEMP 36.1–36.7; O2SAT 93–100; BMI 26.5
[2024-02-20] MEDS: IPRATROPIUM RT 0.5 MG/ 2.5 ML NEBU INH ×4 (02:33→18:26)
[2024-02-20] MEDS: LEVALBUTEROL RT 0.63 MG/3 ML NEBU INH ×4 (02:34→18:25)
[2024-02-20] MEDS: MORPHINE SULF INJ 10 MG/ML VIAL 2 MG IVP ×4 (02:47→20:00)
[2024-02-20] MEDS: guaiFENesin SYRUP 200 MG/10 ML UDC PO (03:54)
[2024-02-20] MEDS: DILTIAZEM 30 MG TABLET PO (05:27)
[2024-02-20] MEDS: LEVOTHYROXINE SODIUM 112 MCG TABLET GT (05:27)
[2024-02-20 06:09] LABS: Basophils % (Auto) 0 % (0-2.5); Eosinophils % (Auto) 0 % (0-10); Hematocrit 31.5 % (36.0-46.0); Hemoglobin 9.8 g/dL (12.0-16.0); Immature Granulocytes % (Auto) 1 % (0-0); Immature Granulocytes Auto 0.11 Thou/mm3 (0.00-0.00); Lymphocytes # (Auto) 2.1 Thou/mm3 (1.0-4.8); Lymphocytes % (Auto) 15 % (10-50); Mean Corpuscular HGB Conc 31.1 g/dl (31.0-37.0); Mean Corpuscular Hemoglobin 26.3 pg (25.0-35.0); Mean Corpuscular Volume 85 fL (80-100); Monocytes # (Auto) 1.4 Thou/mm3 (0.0-0.8); Monocytes % (Auto) 10 % (0-12); Neutrophils # (Auto) 11.1 Thou/mm3 (1.8-7.7); Neutrophils % (Auto) 75 % (37-80); Nucleated Red Blood Cell # 0.02 Thou/mm3 (0.00-0.00); Nucleated Red Blood Cell % 0 /100 WBC (0); Platelet Count 306 Thou/mm3 (140-440); RDW Standard Deviation 54.7 fL (36.4-46.3); Red Blood Count 3.72 Miln/mm3 (4.00-5.20); White Blood Count 14.7 Thou/mm3 (3.6-11.0)
[2024-02-20 06:41] LABS: Alanine Aminotransferase 34 U/L (10-49); Albumin, Serum 3.7 gm/dL (3.4-4.8); Albumin/Globulin Ratio 1.3 (1.2-2.2); Alkaline Phosphatase 70 U/L (46-116); Anion Gap 8 (7-16); Aspartate Amino Transferase 40 U/L (0-34); BUN/Creatinine Ratio 33 Ratio (12-20); Bilirubin,Total 0.5 mg/dL (0.3-1.2); Blood Urea Nitrogen 26 mg/dL (9-23); Calcium 8.3 mg/dL (8.3-10.6); Calcium (Corrected) 8.5 mg/dL (8.5-10.1); Chloride 99 mMol/L (98-107); Creatinine (Component) 0.8 mg/dL (0.6-1.3); Estimated Creatinine Clearance 72.5 mL/min (>60); Globulin 2.8 gm/dL (2.3-3.5); Glucose 171 mg/dL (74-106); Magnesium 2.2 mg/dL (1.6-2.6); Osmolality,Calculated 278 (275-295); Potassium 4.3 mMol/L (3.4-5.1); Sodium 135 mMol/L (136-145); Total Protein 6.5 gm/dL (5.7-8.2); eGFR > 60 See Note
[2024-02-20] MEDS: INSULIN LISPRO (AdmeLOG) 1 UNIT/0.01 ML UNIT SC ×4 (07:36→20:37)
[2024-02-20] MEDS: carVEDILOL 3.125 MG TABLET 6.25 MG PO ×2 (07:40→17:52)
[2024-02-20] MEDS: DIGOXIN INJ 0.25 MG/ML AMP 2 ML IVP (09:02)
[2024-02-20] MEDS: LOSARTAN POTASSIUM 25 MG TABLET PO (09:05)
[2024-02-20] MEDS: cefTRIAXone/D5w 1gm IV premix 50 ML IV (09:05)
[2024-02-20] MEDS: predniSONE 20 MG TABLET 40 MG PO (09:05)
[2024-02-20] MEDS: APIXABAN 2.5 MG TABLET 5 MG PO ×2 (09:05→20:38)
[2024-02-20] MEDS: AZITHROMYCIN 250 MG TABLET PO (09:05)
[2024-02-20] MEDS: PANTOPRAZOLE 40 MG TABLET PO (09:05)
[2024-02-20] MEDS: Furosemide 20 MG TABLET PO (09:06)
--- NOTE | 2024-02-20 09:12 | PC.SS ---
Addendum entered by Abraham Silvestre 02/20/24 15:11: SS provided updated PASRR, Original Note: SS spoke with Evonne Mendez, reviewing to see if pt insurance has authorized for placement
[2024-02-20] MEDS: DILTIAZEM CD 120 MG CAPCR PO (11:16)
--- NOTE | 2024-02-20 11:25 | PC.SS ---
Addendum entered by Abraham Silvestre 02/20/24 15:10: SS spoke with Evonne Mendez, pending insurance authorization Original Note: SS spoke with AMANDA Chavez, pt has been cleared for Lvl 2 SS left message for AMANDA to call to clear pt
--- NOTE | 2024-02-20 11:25 | PC.SS ---
SS met with pt bedside provide medicare information; pt A/O times 4
--- NOTE | 2024-02-20 13:20 | ESPR_ITS ---
Documentation for date of: 02/20/24 Subjective Subjective Interval history: Patient seen at bedside today. She is resting comfortably in bed off of oxygen. Very mild wheeze heard upon expiration. Patient is pending [facility] facility placement. Will discharge the patient on Trelegy Ellipta. Continue with prednisone taper. Exam Vital Signs Temp Pulse Resp BP Pulse Ox O2 Del Method O2 Flow Rate 97.0 F 73 19 158/94 H 93 L Room Air 1 02/20/24 12:00 02/20/24 12:00 02/20/24 12:00 02/20/24 12:00 02/20/24 12:00 02/20/24 12:00 02/19/24 06:10 FiO2 85 02/17/24 16:00 Narrative Exam Physical Exam GENERAL: NAD, AAOx3 HEENT: Moist mucosa. Eyes open, symmetrical, & clear CARDIO: Heart irregularly irregular, no obvious murmurs PULM: No noted coughing/dyspnea, mild crackles bilaterally GI: Abdomen soft, nondistended, no pain on palpation. BSx4 SKIN/MSK/EXT: Right lower extremity first metatarsal amputation covered, no pain on palpation. Pedal pulses present B/L NEURO: AAOx3, no focal neuro deficits, able to move all 4 extremities Objective Labs 02/21/24 05:24 02/20/24 04:42 Labs: Laboratory Results - last 24 hr 02/20/24 04:42 WBC 14.7 H RBC 3.72 L Hgb 9.8 L Hct 31.5 L MCV 85 MCH 26.3 MCHC 31.1 RDW Std Deviation 54.7 H Plt Count 306 Neut % (Auto) 75 Lymph % (Auto) 15 [place] % (Auto) 10 Eos % (Auto) 0 Baso % (Auto) 0 Neut # (Auto) 11.1 H Lymph # (Auto) 2.1 [place] # (Auto) 1.4 H Eos # (Auto) 0.0 Baso # (Auto) 0.0 Immature Gran # (Auto) 0.11 H Absolute Nucleated RBC 0.02 H Immature Gran % 1 H Nucleated RBC % 0 Sodium 135 L Potassium 4.3 Chloride 99 Carbon Dioxide 28.0 Anion Gap 8 BUN 26 H Creatinine 0.8 Estim Creat Clear Calc 72.5 eGFR > 60 BUN/Creatinine Ratio 33 H Glucose 171 H Calculated Osmolality 278 Calcium 8.3 Corrected Calcium 8.5 Magnesium 2.2 Total Bilirubin 0.5 AST 40 H ALT 34 Alkaline Phosphatase 70 Total Protein 6.5 Albumin 3.7 Globulin 2.8 Albumin/Globulin Ratio 1.3 ABG Interpretation ABG results: 02/15/24 02/16/24 02/16/24 22:46 00:31 04:50 ABG pH 7.20 L 7.23 L 7.34 L D ABG pCO2 51 H 52 H 41 D ABG pO2 248 H 90 D 141 H D ABG HCO3 20 22 22 ABG O2 Saturation 101 H 96 100 H ABG Base Excess -8 L -6 L -3 02/17/24 04:15 ABG pH 7.41 ABG pCO2 38 ABG pO2 93 D ABG HCO3 24 ABG O2 Saturation 98 ABG Base Excess 0 Quality Measures Quality Measures sepsis Current suspected stage: ruled out Possible source: genitourinary and other Blood cultures ordered: yes Antibiotic ordered: Yes Advance care planning discussed with:: patient Assessment & Plan Assessment Current Active Medications: Generic Name Dose Route Start Last Admin Trade Name Freq PRN Reason Stop Dose Admin Acetaminophen 650 mg 02/17/24 10:18 Acetaminophen 325 Mg Tablet PO 03/18/24 10:17 Q4HR PRN Fever >101 Albuterol/Ipratropium 3 ml 02/20/24 08:05 Albuterol/Ipratropium (Duoneb) Rt Zahida 3 Ml Nebu INH 03/17/24 02:59 Q4HRRT PRN shortness of breath Apixaban 5 mg 02/19/24 21:00 02/20/24 09:05 Apixaban 2.5 Mg Tablet PO 03/20/24 20:59 5 mg BID BHANU Administration Azithromycin 250 mg 02/19/24 09:00 02/20/24 09:05 Azithromycin 250 Mg Tablet PO 02/26/24 08:59 250 mg QDAY BHANU Administration Carvedilol 6.25 mg 02/19/24 13:30 02/20/24 07:40 Carvedilol 3.125 Mg Tablet PO 03/20/24 13:29 6.25 mg BIDWM BHANU Administration Dextrose 50 ml 02/16/24 01:54 Dextrose 50%-Water Inj 50 Ml Syringe IV 03/17/24 01:53 Q15MIN PRN BG <50 OR BG <70 & pt unresponsive Dextrose 25 ml 02/16/24 01:54 Dextrose 50%-Water Inj 50 Ml Syringe IV 03/17/24 01:53 Q15MIN PRN BG 50-70 responsive npo pt Digoxin 0.25 mg 02/16/24 15:15 02/20/24 09:02 Digoxin Inj 0.25 Mg/Ml Amp 2 Ml IVP 03/17/24 15:14 0.25 mg QDAY BHANU Administration Diltiazem HCl 120 mg 02/20/24 10:30 02/20/24 11:16 Diltiazem Cd 120 Mg Capcr PO 03/21/24 10:29 120 mg QDAY BHANU Administration Furosemide 20 mg 02/20/24 09:00 02/20/24 09:06 Furosemide 20 Mg Tablet PO 03/21/24 08:59 20 mg QAM BHANU Administration Glucagon 1 mg 02/16/24 01:54 Glucagon Inj 1 Mg Vial IM Q15MIN PRN BG <70, and no IV access Guaifenesin 200 mg 02/18/24 22:40 02/20/24 03:54 Guaifenesin Syrup 200 Mg/10 Ml Udc PO 03/19/24 22:39 200 mg QID PRN Administration COUGH OR CONGESTION Protocol Ceftriaxone Sodium/Dextrose 50 mls @ 100 mls/hr 02/18/24 10:47 02/20/24 09:05 Rocephin/D5w 1gm Iv Premix IV 02/25/24 10:46 100 mls/hr QDAY BHANU Administration Insulin Human Lispro 0 unit 02/18/24 07:45 02/20/24 11:11 Insulin Lispro (Admelog) 1 Unit/0.01 Ml Unit SC 03/19/24 07:44 1 unit ACHS BHANU Administration Protocol Ipratropium [place] 0.5 mg 02/18/24 13:00 02/20/24 06:34 Ipratropium Rt 0.5 Mg/ 2.5 Ml Nebu INH 03/19/24 12:59 0.5 mg Q6HRRT BHANU Administration Levalbuterol HCl 0.63 mg 02/19/24 13:00 02/20/24 06:34 Levalbuterol Rt 0.63 Mg/3 Ml Nebu INH 03/20/24 12:59 0.63 mg Q6HRRT BHANU Administration Levothyroxine Sodium 112 mcg 02/16/24 06:00 02/20/24 05:27 Levothyroxine Sodium 112 Mcg Tablet GT 03/17/24 05:59 112 mcg ACBR BHANU Administration Losartan Potassium 25 mg 02/19/24 09:00 02/20/24 09:05 Losartan Potassium 25 Mg Tablet PO 03/20/24 08:59 25 mg QDAY BHANU Administration Morphine Sulfate 2 mg 02/17/24 13:44 02/20/24 09:01 Morphine Sulf Inj 10 Mg/Ml Vial IVP 02/22/24 13:43 2 mg Q4HR PRN Administration PAIN SCALE 4-6 (Moderate Pantoprazole Sodium 40 mg 02/16/24 09:00 02/20/24 09:05 Pantoprazole 40 Mg Tablet PO 03/17/24 08:59 40 mg QDAY BHANU Administration Pharmacy Consult 1 each 02/16/24 09:00 Pharmacy Renal Dose Adjustment 1 Ea XX 03/17/24 08:59 QDAY PRN PROTOCOL Prednisone 40 mg 02/20/24 09:00 02/20/24 09:05 Prednisone 20 Mg Tablet PO 02/25/24 08:59 40 mg QDAY BHANU Administration Sodium Chloride 3 ml 02/18/24 10:44 Sodium Chloride Rt [place]ah[place] 0.9% 3 Ml Nebu INH 03/19/24 10:43 PRN PRN SOLN Plan 63 yr female presented to ED after experiencing shortness of breath. Patient was eventually intubated and put on mechanical ventilator after pneumothorax developed while attempting subclavian line. Admitted for treatment of pneumothorax and management of new onset A-fib RVR. #Atrial fibrillation with RVR Patient presented with atrial fibrillation with a pulse rate of 150's. Differential diagnoses include infection, anemia, toxins/thyroid/drugs, electrolytes/elevated blood pressure, sepsis/sleep apnea/sick sinus syndrome. CTA ruled out PE. This likely cause is drug induced as patient recently used methaphetamine as evidenced on Utox. Patient had a chest tube with recent bleeding as a contraindication for anticoagulation. Patient is currently hemodynamically stable and rate is controlled. [id number] = 6 points indicating 9.7% risk of embolism per year. Will have risk versus benefit conversation for shared medical decision making completed Diltiazem drip for rate control on 02/15 -continue IV dig 0.25mg daily -diltiazem 30 mg p.o. every 6 hours, transition to Cardizem 120 mg p.o. daily -On carvedilol 6.25 mg twice daily -Cardiology recommendations start patient on diltiazem 30 mg p.o. every 6 hours for rate control (02/16) -Resumed Eliquis 5 mg p.o. twice daily #Possible CHF Exacerbation Patient presented with symptoms of new onset worsening SOB. 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 DM2, hypertension. BNP: 539 CXR: evidence of pulmonary vascular congestion Last echo showed 35-30% EF in 2018. NYHA Class II-III -Dr. Prabhakar consulted -echo 02/15 Normal LV size. Mild systolic dysfunction. Mild global hypokinesis. Estimated EF 40-45% -daily weights -strict INOs -low sodium diet -restrict fluid to 1500mL -keep potassium >4, mag >2 -daily CBC, CMP -Lasix 20 mg every morning resumed #AHRF 2/2 apical pneumothorax-resolving vs #Healthcare associated pneumonia vs #Meth induced CHF exacerbation 02/16 CXR right pneumothorax less than 10%. - Acid/base ABG pH 7.41, pCO2 38, pO2 93, FiO2 30 -echo as noted above -repeat CXR for resolution -On ceftriaxone and azithromycin #Hx COPD Increased lung volume noticed on chest x-ray. -On levalbuterol and ipratropium every 6 hourly -IV methylprednisolone transition to prednisone 40 mg daily as per pulmonology recommendations ?Will discharge on Trelegy Ellipta #AMELIA-resolved Most like pre renal in setting of decreased perfusion/decreased CO due to underlying arrhythmia and history of CHF -avoid nephrotoxic agents -daily CMP #Hyperkalemia-resolved Potassium:5.4-->5.2-->4.8 -Monitor at this time #Hypothyroidism TSH: 11.12, Free T4: 0.77 Weight based dosing based on [place] body weight 1.6 mcg/kg 192 -continue levothyroxine at 112 mcg #History of Type II Diabetes Mellitus - Hold patient's home Diabetes Medications - Patient started on Insulin Sliding scale - Q6hr accucheks - Follow up QAM CMP glucose level and Fingerstick #Normocytic Anemia H/H on admission: 10.0/32.0%; MCV: 85 DDX: acute blood loss, hemolysis, chronic inflammation Iron: 16, TIBC: 281, Iron saturation: 5, Ferritin: 96 MCV 85 #Sepsis secondary to healthcare associated pneumonia Patient met SIRS criteria (WBC 13.4, Tachycardia, tachypnea and Temp of 102) with suspected source of Pneumonia as evidenced on Chest/Abdomen/Pelvis CT triggering a sepsis alert. Patient received 30 cc/kg and IV antibiotics doxycyline and Zosyn in the ED. Lactic Acid: 4.22, Procalcitonin 0.09, LDH 453 Blood cultures negative in 48 hours, urine culture negative C.U.R.B. 65 score: 2 points; Moderate risk group: 6.8% 30-day mortality. -Wound care for right toe wound Case discussed with my attending Dr. Vanesa Stratton M.D. PGY-3 Disposition: Patient is admitted to [facility] for management of COPD exacerbation and community-acquired pneumonia Fluids: None Feeding: Carb consistent Thrombo prophylaxis: SCDs Gastric Ulcer prophylaxis: Pantoprazole 40 mg IV daily CODE STATUS: Full code Attending Provider Attestation/Addendum I reviewed labs, imaging, EKG, home medications and prior available records. Face to face evaluation was performed by me. I have personally examined the patient and discussed assessment and plan with the IM team. I reviewed the resident note and agree with the plan with exceptions as below. Acute hypoxic respiratory failure Atrial fibrillation with RVR COPD exacerbation Heart failure with EF of 40 to 45% Healthcare associated pneumonia Leukocytosis, likely secondary to steroid use Pneumothorax, resolved Right foot pain/wounds Wean off oxygen as tolerated Continue Cardizem p.o., digoxin and Coreg. Anticoagulation prior to discharge Continue Solu-Medrol and DuoNebs as needed Counseled the patient regarding the importance of smoking cessation Chest tube was removed by the ICU team Changed antibiotics to Rocephin and azithromycin based on the cultures Ordered foot x-ray for possible right foot osteomyelitis: Showed no evidence. Continue wound care and follow-up with wound care/podiatry as outpatient PT recommended SNF. Discussed with social media marketing manager who is working on the placement
[2024-02-20] MEDS: Silvasorb Gel 45 ML TUBE TOP (13:24)
--- NOTE | 2024-02-20 18:01 | PC.NURSE ---
Patients BS was [phone] doctor was called and notified. Patient confessed friends domingo her a regular soda and she drank it. I educated patient on the importance of her not eating or drinking what friends bring to her. Here she is on a diabetic diet. Will continue to monitor patient.
[2024-02-20] MEDS: INSULIN HUM REGULAR 1 UNIT/0.01 ML (PER UNIT) 10 UNIT SC (18:16)
[2024-02-21] VITALS (15 sets, daily range): BP systolic 143–183; BP diastolic 75–96; PULSE 76–110; RESP 18–97; TEMP 36.2–36.6; O2SAT 93–100; BMI 26.4
[2024-02-21] MEDS: MORPHINE SULF INJ 10 MG/ML VIAL 2 MG IVP ×3 (00:05→10:45)
[2024-02-21] MEDS: guaiFENesin SYRUP 200 MG/10 ML UDC PO (00:05)
[2024-02-21] MEDS: LEVALBUTEROL RT 0.63 MG/3 ML NEBU INH ×4 (00:37→18:26)
[2024-02-21] MEDS: IPRATROPIUM RT 0.5 MG/ 2.5 ML NEBU INH ×4 (00:37→18:26)
[2024-02-21] MEDS: LEVOTHYROXINE SODIUM 112 MCG TABLET GT (05:29)
[2024-02-21 06:19] LABS: Basophils % (Auto) 0 % (0-2.5); Eosinophils # (Auto) 0.1 Thou/mm3 (0.0-0.5); Eosinophils % (Auto) 0 % (0-10); Hemoglobin 9.9 g/dL (12.0-16.0); Immature Granulocytes % (Auto) 1 % (0-0); Immature Granulocytes Auto 0.13 Thou/mm3 (0.00-0.00); Lymphocytes # (Auto) 2.4 Thou/mm3 (1.0-4.8); Lymphocytes % (Auto) 19 % (10-50); Mean Corpuscular HGB Conc 31.9 g/dl (31.0-37.0); Mean Corpuscular Hemoglobin 26.5 pg (25.0-35.0); Mean Corpuscular Volume 83 fL (80-100); Monocytes # (Auto) 1.3 Thou/mm3 (0.0-0.8); Monocytes % (Auto) 11 % (0-12); Neutrophils # (Auto) 8.5 Thou/mm3 (1.8-7.7); Neutrophils % (Auto) 69 % (37-80); Nucleated Red Blood Cell # 0.02 Thou/mm3 (0.00-0.00); Nucleated Red Blood Cell % 0 /100 WBC (0); Platelet Count 303 Thou/mm3 (140-440); RDW Standard Deviation 52.7 fL (36.4-46.3); Red Blood Count 3.74 Miln/mm3 (4.00-5.20); White Blood Count 12.4 Thou/mm3 (3.6-11.0)
[2024-02-21 06:32] LABS: Magnesium 1.9 mg/dL (1.6-2.6)
[2024-02-21] MEDS: INSULIN LISPRO (AdmeLOG) 1 UNIT/0.01 ML UNIT SC ×4 (07:53→21:26)
[2024-02-21] MEDS: cefTRIAXone/D5w 1gm IV premix 50 ML IV (08:09)
[2024-02-21] MEDS: carVEDILOL 3.125 MG TABLET 6.25 MG PO (08:09)
[2024-02-21] MEDS: Magnesium Sulfate 4 GM Ivpb 4 GM/50 ML BAG IV (08:09)
[2024-02-21] MEDS: predniSONE 20 MG TABLET 40 MG PO (08:11)
[2024-02-21] MEDS: APIXABAN 2.5 MG TABLET 5 MG PO ×2 (08:11→20:27)
[2024-02-21] MEDS: DIGOXIN INJ 0.25 MG/ML AMP 2 ML IVP (08:11)
[2024-02-21] MEDS: AZITHROMYCIN 250 MG TABLET PO (08:12)
[2024-02-21] MEDS: LOSARTAN POTASSIUM 25 MG TABLET PO (08:12)
[2024-02-21] MEDS: PANTOPRAZOLE 40 MG TABLET PO (08:12)
[2024-02-21] MEDS: DILTIAZEM CD 120 MG CAPCR PO (08:12)
[2024-02-21] MEDS: Furosemide 20 MG TABLET PO (08:12)
--- NOTE | 2024-02-21 10:52 | PCS.ST ---
SS spoke to Frannie from [employer] who provided fax# [phone] from patient's health insurance for clinicals to be faxed. Per Frannie Julia Odonnell starts insurance authorization. SS spoke to Sally from patient's health insurance, phone# [phone] to confirm fax# is correct and she also provided fax# [phone] and requested SS to send fax to both numbers. SS has explained [employer] is requiring insurance authorization. SS has informed Frannie from [employer] they initiate the authorization and we can contact [employer] insurance to inform them.
[2024-02-21] MEDS: Silvasorb Gel 45 ML TUBE TOP (12:37)
[2024-02-21 12:47] LABS: Alanine Aminotransferase 34 U/L (10-49); Albumin, Serum 3.8 gm/dL (3.4-4.8); Albumin/Globulin Ratio 1.2 (1.2-2.2); Alkaline Phosphatase 75 U/L (46-116); Anion Gap 9 (7-16); Aspartate Amino Transferase 41 U/L (0-34); BUN/Creatinine Ratio 31 Ratio (12-20); Bilirubin,Total 0.3 mg/dL (0.3-1.2); Blood Urea Nitrogen 25 mg/dL (9-23); Calcium 8.4 mg/dL (8.3-10.6); Calcium (Corrected) 8.6 mg/dL (8.5-10.1); Carbon Dioxide 27.1 mMol/L (20.0-31.0); Chloride 98 mMol/L (98-107); Creatinine (Component) 0.8 mg/dL (0.6-1.3); Estimated Creatinine Clearance 72.4 mL/min (>60); Globulin 3.1 gm/dL (2.3-3.5); Glucose 182 mg/dL (74-106); Osmolality,Calculated 277 (275-295); Potassium 4.3 mMol/L (3.4-5.1); Sodium 134 mMol/L (136-145); Total Protein 6.9 gm/dL (5.7-8.2); eGFR > 60 See Note
--- NOTE | 2024-02-21 14:16 | PD.RESDS ---
Planned Discharge Date 02/21/24 DS: Providers Provider Date of admission: 02/16/24 01:28 Primary care physician: Physician No Primary/Family Admitting Provider: Koko Buchanan MD Attending Provider on Admission: Daron Alexis MD Consults: 02/16/24 01:53 Consult to Cardiology Stat Comment: Consulting Provider: Garrett Prabhakar 02/16/24 11:30 Referral Wound Care Routine Comment: s/p amputation; open wound 02/16/24 11:34 Referral Nutritional Services Routine Comment: s/p amputation 2/2 diabetic ulcer 02/17/24 11:04 Referral Physical Therapy Routine Comment: Physician Instructions: 02/17/24 11:28 Referral Speech Therapy Routine Comment: Attending Provider on DC: Daron Alexis MD Discharging Provider: Zeyad Amaya MD Anticipated date of discharge: 02/21/24 DS: Diagnosis Problem List Completed Was Problem List Reviewed/Reconciled?: Yes Hospital Course Hospital Course Hospital course: 63-year-old lady with a past medical history significant for Hypertension, hyperlipidemia, IDDM, COPD, CHF, atrial fibrillation, diabetic ulcer secondary to peripheral arterial disease status post debridement, history of femoral endarterectomy who present from SNF due to acute onset SOB. Admitted for evaluation and management of pneumothorax. During hospital stay pneumothorax was managed with chest tube once resolved chest tube was discontinued. For her A-fib with RVR patient was evaluated by cardiology Dr. Prabhakar started the patient on diltiazem, digoxin, metoprolol with adequate rate control. Possible CHF exacerbation was managed with strict I's and O's, fluid restriction, daily weights patient's home Lasix was resumed. For her pneumonia patient was managed with ceftriaxone and azithromycin. COPD was managed with nebulization therapy and the steroids medication. Hypothyroidism was managed by resuming her home medication. Diabetes is managed with insulin sliding scale. At this time patient is medically stable for discharge. Recommend strict compliance with antihypertensive medications. Recommend follow-up with utilities estimator and drafter within 1 week of discharge from hospital. Recommend following up with your primary care physician for reconciling medications. In case of worsening symptoms, please return to the emergency room. Problem list: #Atrial fibrillation with RVR #Possible CHF Exacerbation #AHRF 2/2 apical pneumothorax-resolving vs #Healthcare associated pneumonia vs #Meth induced CHF exacerbation #Hx COPD #AMELIA-resolved #Hyperkalemia-resolved #Hypothyroidism #History of Type II Diabetes Mellitus #Normocytic Anemia #Sepsis secondary to healthcare associated pneumonia-resolved Case discussed with my attending Dr. Vanesa Amaya MD PGY-1 Status at Discharge Functional status at discharge: independent ambulation Overall status at discharge: patient is back to baseline Time Spent with Patient Time attestation: Total time spent providing and/or coordinating discharge services: Time spent: Greater than 30 minutes Exam Vital Signs Temp Pulse Resp BP Pulse Ox O2 Del Method O2 Flow Rate 97.6 F 105 H 20 172/81 H 100 Room Air 1 02/21/24 12:00 02/21/24 12:39 02/21/24 12:39 02/21/24 12:00 02/21/24 12:39 02/21/24 12:00 02/19/24 06:10 FiO2 85 02/17/24 16:00 Narrative Exam Physical Exam GENERAL: NAD, AAOx3 HEENT: Moist mucosa. Eyes open, symmetrical, & clear CARDIO: Heart irregularly irregular, no obvious murmurs PULM: No noted coughing/dyspnea, CTA bilaterally GI: Abdomen soft, nondistended, no pain on palpation. BSx4 SKIN/MSK/EXT: Right lower extremity first metatarsal amputation covered, no pain on palpation. Pedal pulses present B/L NEURO: AAOx3, no focal neuro deficits, able to move all 4 extremities Discharge Plan Plan Patient Disposition: Xfer Skilled [facility] Fac (SNF) Care Plan Goals: Recommend strict compliance with antihypertensive medications. Recommend follow-up with utilities estimator and drafter within 1 week of discharge from hospital. Recommend following up with your primary care physician for reconciling medications. In case of worsening symptoms, please return to the emergency room. Prescriptions/Referrals Prescriptions/Med Rec: New apixaban 5 mg tablet 5 mg PO BID 30 Days Qty: 60 0RF furosemide 20 mg Tablet 20 mg PO QAM 30 Days Qty: 30 0RF levothyroxine 112 mcg Tablet 112 mcg G-tube ACBR 30 Days Qty: 30 0RF Trelegy Ellipta 200-62.5-25 mcg blister with device 1 inh inhalation QDAY Qty: 28 0RF carvedilol 12.5 mg tablet 12.5 mg PO BIDWM 30 Days Qty: 60 0RF digoxin 125 mcg (0.125 mg) tablet 125 mcg PO QDAY Qty: 30 0RF Continued buspirone 5 mg Tablet 5 mg PO BID Qty: 30 0RF atorvastatin 20 mg Tablet 20 mg PO HS Qty: 30 0RF gabapentin 300 mg Capsule 300 mg PO HS Qty: 30 0RF gabapentin 100 mg Capsule 100 mg PO QDAY Qty: 30 0RF valsartan 160 mg tablet 160 mg PO QDAY Qty: 30 0RF Discontinued Eliquis 2.5 mg Tablet 2.5 mg PO BID Qty: 60 0RF digoxin 125 mcg (0.125 mg) Tablet 0.25 mg PO QDAY Qty: 30 0RF metoprolol tartrate 50 mg tablet 50 mg PO BID Qty: 60 0RF Referrals: No Primary/Family,Physician [Primary Care Provider] - Patient/Caregiver Discharge Instructions Print Language: Azerbaijani Stand Alone Forms: Gaby Award Info., Patient Portal Info Letter Discharge Order Discharge Orders: Discharge (Routine); Ordered 02/21/24 Ordered By: Prashant Gross Quality Discharge Quality Measures VTE prophylaxis Attestestation Attestation I reviewed labs, imaging, EKG, home medications and prior available records. Face to face evaluation was performed by me. I have personally examined the patient and discussed assessment and plan with the IM team. I reviewed the resident note and agree with the plan with exceptions as below. Acute hypoxic respiratory failure Atrial fibrillation with RVR COPD exacerbation Heart failure with EF of 40 to 45% Healthcare associated pneumonia Leukocytosis, likely secondary to steroid use Pneumothorax, resolved Right foot pain/wounds Wean off oxygen as tolerated Continue digoxin and Coreg. Continue apixaban Trelegy daily for COPD Counseled the patient regarding the importance of smoking cessation Chest tube was removed by the ICU team Received a course of antibiotics for her pneumonia Rocephin and azithromycin Ordered foot x-ray for possible right foot osteomyelitis: Showed no evidence. Continue wound care and follow-up with wound care/podiatry as outpatient PT recommended SNF. Discussed with socially responsible investment adviser who is working on the placement Time spent is 40 minutes. More than 50% of the time was spent on patient education and coordination of care.
[2024-02-21] MEDS: carVEDILOL 3.125 MG TABLET 12.5 MG PO (17:02)
[2024-02-21] MEDS: HYDROcodone/APAP 5/325 TABLET 1 TAB PO ×2 (17:03→20:26)
--- NOTE | 2024-02-21 17:53 | PC.NURSE ---
Patient has no IV access doctors are aware. Central line discontinued to today. Plan was for her to DC to [facility]. Insurance pending authorization.
[2024-02-22] VITALS (10 sets, daily range): BP systolic 147–176; BP diastolic 76–89; PULSE 60–120; RESP 17–96; TEMP 36.1–36.6; O2SAT 95–100; BMI 25.1
[2024-02-22] MEDS: IPRATROPIUM RT 0.5 MG/ 2.5 ML NEBU INH ×3 (00:15→12:57)
[2024-02-22] MEDS: LEVALBUTEROL RT 0.63 MG/3 ML NEBU INH ×3 (00:15→12:57)
[2024-02-22] MEDS: LEVOTHYROXINE SODIUM 112 MCG TABLET GT (05:23)
[2024-02-22] MEDS: HYDROcodone/APAP 5/325 TABLET 1 TAB PO ×2 (05:24→13:06)
[2024-02-22 06:22] LABS: Magnesium 2.2 mg/dL (1.6-2.6)
--- NOTE | 2024-02-22 07:25 | PC.NURSE ---
Dr. Cabrales aware that pt. does not have IV access as central line was DCd yesterday for discharge but Discharge did not happen due to insurance issues. So, pt. no longer has IV access and is a very difficult stick. Pt. has IV medications ordered for this morning. Dr. Cabrales states okay I will switch these meds over to PO.
--- NOTE | 2024-02-22 07:28 | PC.NURSE ---
Dr. Cabrales aware of pt. BP 176/84 and orders okay to give all morning medications now.
--- NOTE | 2024-02-22 07:30 | PC.NURSE ---
Verified with Juany pharmacist that it is OK to give PO digoxin now. Juany states yes proceed with administration, no labs are needed at this time.
[2024-02-22] MEDS: INSULIN LISPRO (AdmeLOG) 1 UNIT/0.01 ML UNIT SC ×2 (07:37→11:27)
[2024-02-22] MEDS: AZITHROMYCIN 250 MG TABLET PO (07:38)
[2024-02-22] MEDS: Furosemide 20 MG TABLET PO (07:38)
[2024-02-22] MEDS: predniSONE 20 MG TABLET 40 MG PO (07:38)
[2024-02-22] MEDS: carVEDILOL 3.125 MG TABLET 12.5 MG PO (07:38)
[2024-02-22] MEDS: APIXABAN 2.5 MG TABLET 5 MG PO (07:39)
[2024-02-22] MEDS: LOSARTAN POTASSIUM 25 MG TABLET PO (07:39)
[2024-02-22] MEDS: DIGOXIN 0.125 MG TABLET PO (07:39)
[2024-02-22] MEDS: PANTOPRAZOLE 40 MG TABLET PO (07:39)
--- NOTE | 2024-02-22 07:48 | PC.NURSE ---
Called to pharmacy for Silvasorb. Spoke to Angela henry
[2024-02-22] MEDS: Silvasorb Gel 45 ML TUBE TOP (09:08)
--- NOTE | 2024-02-22 10:13 | PC.SS ---
Late note 02-21-24: SS received call from Frannie at [facility] and informed SS pt has [facility] health insurance plan. Frannie provided SS with fax# [phone] to patient's health insurance for inquiry to be sent. SS called and spoke to Sally, gravity prospecting supervisor at [place] and confirmed fax # was correct. Marily also provided fax# [phone]. SS has sent inquiry to both fax#.
--- NOTE | 2024-02-22 10:18 | PC.SS ---
SS met with pt who is aware her health insurance is working on providing [facility] with insurance authorization. states she can sit in wheelchair and her significant other is able to provide transport.
--- NOTE | 2024-02-22 10:29 | PC.SS ---
SS has sent corrected insurance authorization to [facility] using [employer]. P[employer]ious authorization was for 1 day only, per Frannie at [facility]. SS called and spoke to Sally from patient's health insurance to inform her and provided her with [facility]'s fax# to fax correct authorization form.
--- NOTE | 2024-02-22 11:17 | PC.SS ---
Addendum entered by Lilliam Brandt 02/22/24 12:22: SS met with pt who states she is unable to pay for transportation. Pt has new amputation of her toe. SS setup gurney transportation with Angela from [employer] for 2:45pm to [facility]. Bedside nurse, Lucrecia is aware. Elyssa JIMENEZ is aware. Pt and are aware. Frannie at [facility] is aware. Original Note: SS called and attempted to setup gurney transportation with Bret from [email or web address] but was unsuccessful. Rom explained patient's account is inactive and member services has been disconnected. Pt can contact member services at [phone]. SS provided pt with the Community Resource List with the member service phone#.
--- NOTE | 2024-02-22 11:50 | PD.ADDDSCHGE ---
Addendum Discharge Addendum Date of report being addended: 02/22/24 Narrative: Patient was medically discharged 02/21/2024 however due to some insurance thing patient is still in the hospital. IV medications were switched PO route. Will continue current management and continue to monitor patient at this time. Case discussed with my attending Dr. Vanesa Amaya MD PGY-1
--- NOTE | 2024-02-22 12:17 | PD.ADDPROG ---
Addendum Progress Note Addendum Date of report being addended: 02/22/24 Narrative: I reviewed labs, imaging, EKG, home medications and prior available records. Face to face evaluation was performed by me. I have personally examined the patient and discussed assessment and plan with the IM team. I reviewed the resident note and agree with the plan with exceptions as below. Acute hypoxic respiratory failure Atrial fibrillation with RVR COPD exacerbation Heart failure with EF of 40 to 45% Healthcare associated pneumonia Leukocytosis, likely secondary to steroid use Pneumothorax, resolved Right foot pain/wounds Wean off oxygen as tolerated Continue digoxin and Coreg. Continue apixaban Trelegy daily for COPD Counseled the patient regarding the importance of smoking cessation Chest tube was removed by the ICU team Received a course of antibiotics for her pneumonia Rocephin and azithromycin Ordered foot x-ray for possible right foot osteomyelitis: Showed no evidence. Continue wound care and follow-up with wound care/podiatry as outpatient Uncontrolled hyperglycemia is likely in the setting of steroid use. Continue sliding scale insulin and monitor fingersticks PT recommended SNF. Discussed with social worker delinquency prevention who is working on the placement. Patient got authorization for only 1 day however this is likely a mistake
--- NOTE | 2024-02-22 13:41 | PC.NURSE ---
Tried to call [facility] for the third time to given report on patient coming [facility]. Call was transferred and then disconnected on other end. Voicemail left.
--- NOTE | 2024-02-22 13:57 | PC.NURSE ---
Addendum entered by Lucrecia Fontenot RN 02/22/24 13:58: will call doctor about medication for diabetes. Original Note: Report given to Ela at [facility]. All medications and instructions provided. Ela aware of amputation site to right foot, wound care provided for site today.
--- NOTE | 2024-02-22 14:16 | PC.NURSE ---
Called to Dr. Cabrales to make aware that according to discharge orders pt. does not have anything ordered for diabetes for SNF. aware and states I will order something. also aware that Levothyroxine is Gtube route, however, pt. does not have Gtube. Rn requests route changed. agrees.
--- NOTE | 2024-02-23 16:05 | PD.HHDS ---
Planned Discharge Date 02/22/24 DS: Providers Provider Date of admission: 02/16/24 01:28 Primary care physician: Physician No Primary/Family Admitting Provider: Koko Buchanan MD Attending Provider on Admission: Daron Alexis MD Consults: 02/16/24 01:53 Consult to Cardiology Stat Comment: Consulting Provider: Garrett Prabhakar 02/16/24 11:30 Referral Wound Care Routine Comment: s/p amputation; open wound 02/16/24 11:34 Referral Nutritional Services Routine Comment: s/p amputation 2/2 diabetic ulcer 02/17/24 11:04 Referral Physical Therapy Routine Comment: Physician Instructions: 02/17/24 11:28 Referral Speech Therapy Routine Comment: Attending Provider on DC: Daron Alexis MD Discharging Provider: Daron Alexis MD Diagnosis Problem List Completed Was Problem List Reviewed/Reconciled?: Yes Hospital Course - Hospitalist Hospital Course Hospital course: 63-year-old lady with a past medical history significant for Hypertension, hyperlipidemia, IDDM, COPD, CHF, atrial fibrillation, diabetic ulcer secondary to peripheral arterial disease status post debridement, history of femoral endarterectomy who present from SNF due to acute onset SOB. Admitted for evaluation and management of pneumothorax. During hospital stay pneumothorax was managed with chest tube once resolved chest tube was discontinued. For her A-fib with RVR patient was evaluated by cardiology Dr. Prabhakar started the patient on diltiazem, digoxin, metoprolol with adequate rate control. Possible CHF exacerbation was managed with strict I's and O's, fluid restriction, daily weights patient's home Lasix was resumed. For her pneumonia patient was managed with ceftriaxone and azithromycin. COPD was managed with nebulization therapy and the steroids medication. Hypothyroidism was managed by resuming her home medication. Diabetes is managed with insulin sliding scale. At this time patient is medically stable for discharge. Recommend strict compliance with antihypertensive medications. Recommend follow-up with diamond powder technician within 1 week of discharge from hospital. Recommend following up with your primary care physician for reconciling medications. In case of worsening symptoms, please return to the emergency room. Problem list: #Atrial fibrillation with RVR #Possible CHF Exacerbation #AHRF 2/2 apical pneumothorax-resolving vs #Healthcare associated pneumonia vs #Meth induced CHF exacerbation #Hx COPD #AMELIA-resolved #Hyperkalemia-resolved #Hypothyroidism #History of Type II Diabetes Mellitus #Normocytic Anemia #Sepsis secondary to healthcare associated pneumonia-resolved I reviewed labs, imaging, EKG, home medications and prior available records. Face to face evaluation was performed by me. I have personally examined the patient and discussed assessment and plan with the IM team. I reviewed the resident note and agree with the plan with exceptions as below. Acute hypoxic respiratory failure Atrial fibrillation with RVR COPD exacerbation Heart failure with EF of 40 to 45% Healthcare associated pneumonia Leukocytosis, likely secondary to steroid use Pneumothorax, resolved Right foot pain/wounds Wean off oxygen as tolerated Continue digoxin and Coreg. Continue apixaban Trelegy daily for COPD Counseled the patient regarding the importance of smoking cessation Chest tube was removed by the ICU team Received a course of antibiotics for her pneumonia Rocephin and azithromycin Ordered foot x-ray for possible right foot osteomyelitis: Showed no evidence. Continue wound care and follow-up with wound care/podiatry as outpatient Uncontrolled hyperglycemia is likely in the setting of steroid use. Continue sliding scale insulin and monitor fingersticks PT recommended SNF. Discussed with transition social worker who got the placement. Time spent 40 minutes Time Spent with Patient Time attestation: Total time spent providing and/or coordinating discharge services: Discharge Results Labs Diagrams: 02/21/24 05:24 02/21/24 10:38 Exam Vital Signs Temp Pulse Resp BP Pulse Ox O2 Del Method O2 Flow Rate 98 F 89 18 147/89 H 97 Room Air 1 02/22/24 14:45 02/22/24 14:45 02/22/24 14:45 02/22/24 14:45 02/22/24 14:45 02/22/24 14:45 02/19/24 06:10 FiO2 85 02/17/24 16:00 Narrative GENERAL: NAD, AAOx3 HEENT: Moist mucosa. Eyes open, symmetrical, & clear CARDIO: Heart irregularly irregular, no obvious murmurs PULM: No noted coughing/dyspnea, CTA bilaterally GI: Abdomen soft, nondistended, no pain on palpation. BSx4 SKIN/MSK/EXT: Right lower extremity first metatarsal amputation covered, no pain on palpation. Pedal pulses present B/L NEURO: AAOx3, no focal neuro deficits, able to move all 4 extremities Discharge Plan Plan Patient Disposition: Xfer Skilled Nsg Fac (SNF) Care Plan Goals: Recommend strict compliance with antihypertensive medications. Recommend follow-up with diamond powder technician within 1 week of discharge from hospital. Recommend following up with your primary care physician for reconciling medications. In case of worsening symptoms, please return to the emergency room. Prescriptions/Referrals Prescriptions/Med Rec: New apixaban 5 mg tablet 5 mg PO BID 30 Days Qty: 60 0RF furosemide 20 mg Tablet 20 mg PO QAM 30 Days Qty: 30 0RF levothyroxine 112 mcg Tablet 112 mcg G-tube ACBR 30 Days Qty: 30 0RF Trelegy Ellipta 200-62.5-25 mcg blister with device 1 inh inhalation QDAY Qty: 28 0RF carvedilol 12.5 mg tablet 12.5 mg PO BIDWM 30 Days Qty: 60 0RF digoxin 125 mcg (0.125 mg) tablet 125 mcg PO QDAY Qty: 30 0RF insulin glargine [Basaglar KwikPen U-100 Insulin] 100 unit/mL (3 mL) insulin pen 15 unit subcut QAM Qty: 15 0RF (DME) pen needle, diabetic [1st Tier Unifine Pentips] 29 gauge x 1/2 needle See Rx Instructions .ROUTE Qty: 100 0RF Rx Instructions: As directed (DME) blood-glucose meter [Accu-Chek Guide Me Glucose Mtr] Misc See Rx Instructions .ROUTE Qty: 1 0RF Rx Instructions: As directed (DME) Accu-Chek Guide test strips Strip See Rx Instructions .ROUTE Qty: 50 0RF Rx Instructions: As directed (DME) lancets [Advocate Lancet] 30 gauge misc See Rx Instructions .ROUTE Qty: 200 0RF Rx Instructions: As directed Continued buspirone 5 mg Tablet 5 mg PO BID Qty: 30 0RF atorvastatin 20 mg Tablet 20 mg PO HS Qty: 30 0RF gabapentin 300 mg Capsule 300 mg PO HS Qty: 30 0RF gabapentin 100 mg Capsule 100 mg PO QDAY Qty: 30 0RF valsartan 160 mg tablet 160 mg PO QDAY Qty: 30 0RF Discontinued Eliquis 2.5 mg Tablet 2.5 mg PO BID Qty: 60 0RF digoxin 125 mcg (0.125 mg) Tablet 0.25 mg PO QDAY Qty: 30 0RF metoprolol tartrate 50 mg tablet 50 mg PO BID Qty: 60 0RF Referrals: No Primary/Family,Physician [Primary Care Provider] - Garrett Prabhakar MD [Physician] - Patient/Caregiver Discharge Instructions Print Language: Faroese Stand Alone Forms: Gaby Award Info., Patient Portal Info Letter Discharge Order Discharge Orders: Discharge (Routine); Ordered 02/21/24 Ordered By: Prashant Gross Quality Discharge Quality Measures none
== END 2024-02-22 14:45 | disposition skilled nursing facility (03) | DRG 871 ==
LOC: SERX 02-16 00:23 → SERHOLD 02-16 01:52 → S2SX 02-16 02:55 → S3NX 02-19 17:35
PROVIDERS: Registered Nurse General Practice; Student in an Organized Health Care Education/Training Program; Admitting Provider Internal Medicine; Emergency Provider Emergency Medicine; Visit Provider Student in an Organized Health Care Education/Training Program
DX: A41.9 Sepsis, unspecified organism (principal); J18.9 Pneumonia, unspecified organism; J96.01 Acute respiratory failure with hypoxia; J93.83 Other pneumothorax; N39.0 Urinary tract infection, site not specified; J44.1 Chronic obstructive pulmonary disease with (acute) exacerbation; J44.0 Chronic obstructive pulmonary disease with (acute) lower respiratory infection; I48.91 Unspecified atrial fibrillation; E78.5 Hyperlipidemia, unspecified; J44.9 Chronic obstructive pulmonary disease, unspecified; I11.0 Hypertensive heart disease with heart failure; I50.9 Heart failure, unspecified; E11.51 Type 2 diabetes mellitus with diabetic peripheral angiopathy without gangrene; F15.90 Other stimulant use, unspecified, uncomplicated; Z79.4 Long term (current) use of insulin; Z79.01 Long term (current) use of anticoagulants; E87.5 Hyperkalemia; E03.9 Hypothyroidism, unspecified; D64.9 Anemia, unspecified; F17.200 Nicotine dependence, unspecified, uncomplicated
CPT/HCPCS: 36415; 36600; 71045; 71275; 73630; 80053; 80061; 80162; 80202; 80307; 81001; 82728; 82803; 83036; 83540; 83550; 83605; 83615; 83690; 83735; 83880; 84100; 84145; 84439; 84443; 84484; 85025; 85046; 85610; 85730; 87040; 87081; 87086; 87205; 87400; 87634; 87811; 92526; 92610; 93005; 93225; 93306; 94002; 94003; 94640; 94664; 94762; 96361; 96365; 96366; 96367; 96374; 97162; 99291; 99292; A4649; A9270; C1729; C1751; J0131; J0283; J0330; J0696; J1160; J1815; J2251; J2270; J2543; J2704; J2919; J3370; J3372; J3475; J3490; J7030; J7050; J7512; Q9967; J1920

== ENCOUNTER → 2024-04-20 | Outpatient (CLI) | payer MEDICARE, SELFPAY | END | disposition home or self-care (01) | PROVIDERS: Visit Provider Student in an Organized Health Care Education/Training Program | DX: T81.89XA Other complications of procedures, not elsewhere classified, initial encounter (principal); L97.515 Non-pressure chronic ulcer of other part of right foot with muscle involvement without evidence of necrosis; I10 Essential (primary) hypertension; E11.40 Type 2 diabetes mellitus with diabetic neuropathy, unspecified; Z79.4 Long term (current) use of insulin; Z79.84 Long term (current) use of oral hypoglycemic drugs; F17.200 Nicotine dependence, unspecified, uncomplicated | CPT/HCPCS: 11042; 99213; A9270; G0463 ==

== ENCOUNTER → 2024-05-04 | Outpatient (CLI) | payer MEDICARE, SELFPAY | END | disposition home or self-care (01) | LOC: SWHD 14:35 | PROVIDERS: PCP Family Medicine; Referring Provider Family Medicine; Visit Provider Student in an Organized Health Care Education/Training Program | DX: E11.621 Type 2 diabetes mellitus with foot ulcer (principal); T81.89XD Other complications of procedures, not elsewhere classified, subsequent encounter; L97.512 Non-pressure chronic ulcer of other part of right foot with fat layer exposed; I10 Essential (primary) hypertension; F17.200 Nicotine dependence, unspecified, uncomplicated; E11.40 Type 2 diabetes mellitus with diabetic neuropathy, unspecified | CPT/HCPCS: 11042; A9270 ==

== ENCOUNTER → 2024-05-18 | Outpatient (CLI) | payer MEDICARE, SELFPAY | END | disposition home or self-care (01) | LOC: SWHD 13:52 | PROVIDERS: PCP Family Medicine; Referring Provider Family Medicine; Visit Provider Student in an Organized Health Care Education/Training Program | DX: E11.621 Type 2 diabetes mellitus with foot ulcer (principal); T81.89XD Other complications of procedures, not elsewhere classified, subsequent encounter; L97.512 Non-pressure chronic ulcer of other part of right foot with fat layer exposed; I10 Essential (primary) hypertension; F17.200 Nicotine dependence, unspecified, uncomplicated; E11.40 Type 2 diabetes mellitus with diabetic neuropathy, unspecified | CPT/HCPCS: 11042; A9270 ==

== ENCOUNTER → 2024-06-01 | Outpatient (CLI) | payer MEDICARE, SELFPAY | END | disposition home or self-care (01) | LOC: SWHD 14:50 | PROVIDERS: PCP Family Medicine; Referring Provider Family Medicine; Visit Provider Surgery | DX: E11.621 Type 2 diabetes mellitus with foot ulcer (principal); T81.89XD Other complications of procedures, not elsewhere classified, subsequent encounter; L97.512 Non-pressure chronic ulcer of other part of right foot with fat layer exposed; I10 Essential (primary) hypertension; F17.200 Nicotine dependence, unspecified, uncomplicated; E11.40 Type 2 diabetes mellitus with diabetic neuropathy, unspecified | CPT/HCPCS: 11042; A9270 ==

== ENCOUNTER → 2024-06-20 | Outpatient (CLI) | payer MEDICARE, SELFPAY | END | disposition home or self-care (01) | LOC: SWHD 14:30 | PROVIDERS: PCP Family Medicine; Referring Provider Family Medicine; Visit Provider Student in an Organized Health Care Education/Training Program | DX: E11.621 Type 2 diabetes mellitus with foot ulcer (principal); T81.89XD Other complications of procedures, not elsewhere classified, subsequent encounter; L97.511 Non-pressure chronic ulcer of other part of right foot limited to breakdown of skin; I10 Essential (primary) hypertension; F17.200 Nicotine dependence, unspecified, uncomplicated; E11.40 Type 2 diabetes mellitus with diabetic neuropathy, unspecified | CPT/HCPCS: 97597; A9270 ==

== ENCOUNTER → 2024-07-06 | Outpatient (CLI) | payer MEDICARE, SELFPAY | END | disposition home or self-care (01) | LOC: SWHD 14:41 | PROVIDERS: PCP Family Medicine; Referring Provider Family Medicine; Visit Provider Student in an Organized Health Care Education/Training Program | DX: T81.89XD Other complications of procedures, not elsewhere classified, subsequent encounter (principal); L97.512 Non-pressure chronic ulcer of other part of right foot with fat layer exposed; I10 Essential (primary) hypertension; F17.200 Nicotine dependence, unspecified, uncomplicated; E11.40 Type 2 diabetes mellitus with diabetic neuropathy, unspecified | CPT/HCPCS: 97597; A9270 ==

== ENCOUNTER → 2024-07-25 | Outpatient (CLI) | payer MEDICARE, SELFPAY | END | disposition home or self-care (01) | LOC: SWHD 13:50 | PROVIDERS: PCP Family Medicine; Referring Provider Family Medicine; Visit Provider Student in an Organized Health Care Education/Training Program | DX: E11.621 Type 2 diabetes mellitus with foot ulcer (principal); T81.89XD Other complications of procedures, not elsewhere classified, subsequent encounter; L97.512 Non-pressure chronic ulcer of other part of right foot with fat layer exposed; I10 Essential (primary) hypertension; F17.200 Nicotine dependence, unspecified, uncomplicated; E11.40 Type 2 diabetes mellitus with diabetic neuropathy, unspecified | CPT/HCPCS: 99212; G0463 ==